=== PATIENT | female | born 1995 | race Caucasian/White ===

== ENCOUNTER 2016-08-25 20:08 | Emergency (ER) | payer BC ==
[~2016-08-25] VITALS: Ht 160 cm; Wt 120.4 kg
[~2016-08-25 20:08] MED LIST: CEPH500C PO; FLUC200T PO
[2016-08-25 20:10] VITALS: BP 142/90; PULSE 88; TEMP 36.7; O2SAT 99; Ht 160 cm; Wt 120.4 kg
[2016-08-25] MEDS ORDERED: NORE1TAB3 PO (20:23)
--- NOTE | 2016-08-25 23:03 | EMERGENCY ROOM VISIT NOTE ---
History First contact with patient: 20:23 Chief Complaint: SUN BURN Stated Complaint: SUN POISONING History of Present Illness The patient is a 21 year old female who presents to the Emergency Room with complaints of harvey to her face, upper back/neck region and both arms. The patient reports that she was fishing and out on the water the past 2 days. She did not use any sunscreen. She now rates her discomfort an 8 out of 10. Tetanus immunization is up-to-date. Review of Systems 10 system review was performed and was negative except for pertinent positives and negatives as indicated in history of present illness Past Medical/Surgical History Medical Problems: (1) No significant active problems Medical Problems: (1) Hypertension (2) No significant active problems Surgical Problems: (1) History of facial surgery (2) History of tonsillectomy and adenoidectomy Family History Hypertension Social History Smoking Status: Never Smoker Alcohol Use: occasionally Marital Status: single, in relationship Housing Status: lives with family Occupation Status: employed Current/Historical Medications Scheduled Norethin Acet & Estrad-Fe (04/29), 1 TAB PO DAILY Allergies Coded Allergies: No Known Allergies (Unverified , 08/25/16) Physical Exam Vital Signs Date Time Temp Pulse Resp B/P Pulse Ox O2 Delivery O2 Flow Rate FiO2 08/25/16 20:10 36.7 88 18 142/90 99 Room Air Physical Exam CONSTITUTIONAL: Healthy and well nourished. Alert and oriented X 3 with positive affect. HEENT: Normocephalic, atraumatic. Pupils equal, round and reactive. NECK: Full active range of motion without discomfort. RESPIRATORY: Clear to auscultation bilaterally with no wheezing, crackles, rhonchi or stridor. CARDIOVASCULAR: Regular rate and rhythm with no murmurs, rubs or gallops. GASTROINTESTINAL: Bowel sounds present in all quadrants. MUSCULOSKELETAL: Full range of motion of all joints without discomfort. INTEGUMENTARY: Examination shows a sunburn covering the entire face. No scalp involvement. The patient has mild lip edema. No periorbital edema. There is a combination of mildly blistered and non-blistered skin. The patient has a first-degree burn over the back of the neck and top of the shoulders that was exposed to the sun. She also has a mixture of first and second-degree harvey on the dorsum of the hands, forearms and upper arms. None of these harvey are circumferential. This is an approximate 13% body surface area. NEUROLOGIC: Cranial nerves II-XII grossly intact. No focal neurologic deficits noted. Medical Decision & Procedures ED Course Patient history and physical exam were performed. Nurse's notes were reviewed. I did encourage use of cool compresses for the swelling and discomfort. Ibuprofen and Tylenol as needed for additional pain relief. She was instructed to apply bacitracin zinc to the face, and follow-up with her family doctor as needed for further management. The patient voiced understanding of all discharge instructions, was happy with plan of care, refused any analgesics while in the emergency department, and rated her discomfort a 4 out of 10 at the time of discharge. Medical Decision Impression Primary Impression: Second degree sunburn Departure Information Dispostion Home / Self-Care Forms HOME CARE DOCUMENTATION FORM, IMPORTANT VISIT INFORMATION Patient Instructions Sunburn, [facility] Additional Instructions Apply bacitracin zinc twice daily as recommended to the face and arms. Do not use aloe creams as this will dry out the skin even further. Apply cool wet compresses for swelling relief. Ibuprofen 800 mg and/or Tylenol 1000 mg every 8 hours. You may also alternate these medications for more effective pain relief: Ibuprofen --4 HRS--> Tylenol --4 HRS--> ibuprofen --4 HRS--> Tylenol .... Follow-up with your family doctor as needed for further management.
== END 2016-08-25 21:00 | disposition home or self-care (01) ==
LOC: C.EDB 20:09 → C.EDD 21:00
DX: L55.1 Sunburn of second degree (principal); I10 Essential (primary) hypertension; Z98.890 Other specified postprocedural states; Z79.899 Other long term (current) drug therapy

== ENCOUNTER 2017-07-28 20:42 | Emergency (ER) | payer BC, OTHER ==
[~2017-07-28] VITALS: Ht 160 cm; Wt 118.9 kg
[~2017-07-28 20:42] MED LIST changes: -CEPH500C PO; -FLUC200T PO; +NORE1TAB3 PO
[2017-07-28 20:49] VITALS: TEMP 36.6; Ht 160 cm; Wt 118.9 kg
[2017-07-28] MEDS ORDERED: IBUPROFEN 800 MG TAB PO STA (21:16)
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
[2017-07-28 23:03] VITALS: BP 121/70; PULSE 76; O2SAT 97
[2017-07-28] MEDS ORDERED: PRX/40 PO (23:04)
[2017-07-28] MEDS ORDERED: DSY/150 PO (23:04)
[2017-07-28] MEDS ORDERED: DIAZ10TA3 PO (23:04)
[2017-07-28] MEDS ORDERED: APRI28 PO (23:04)
[2017-07-28] MEDS ORDERED: BSP15 PO (23:04)
== END 2017-07-28 23:00 | disposition home or self-care (01) ==
LOC: C.EDB 20:43 → C.EDD 23:00
DX: S20.212A Contusion of left front wall of thorax, initial encounter (principal); S90.01XA Contusion of right ankle, initial encounter; V49.40XA Driver injured in collision with unspecified motor vehicles in traffic accident, initial encounter; R03.0 Elevated blood-pressure reading, without diagnosis of hypertension; F41.8 Other specified anxiety disorders; Z79.899 Other long term (current) drug therapy

== ENCOUNTER → 2017-10-27 | Outpatient (CLI) | payer BC ==
[~2017-10-27] MED LIST changes: +APRI28 PO; +BSP15 PO; +DIAZ10TA3 PO; +DSY/150 PO; -NORE1TAB3 PO; +PRX/40 PO
== END | disposition home or self-care (01) ==
LOC: C.LABBC 08:17
PROVIDERS: ATTEND Nurse Practitioner Adult Health
DX: R63.5 Abnormal weight gain (principal)

== ENCOUNTER 2021-02-26 17:51 | Observation (INO) ==
[2021-02-26] MEDS ORDERED: SODIUM CHLORIDE 0.9% 500 ML IV STA (17:59)
[2021-02-26] MEDS ORDERED: diphenhydrAMINE 50 MG/ML VIAL IV STA (19:27)
[2021-02-26] MEDS ORDERED: PROCHLORPERAZINE 10 MG in SYRINGE 8 ML IV ONE (19:27)
[2021-02-26] MEDS ORDERED: LORazepam 0.5 MG/1 ML VIAL IV STA (19:27)
[2021-02-26 19:30] LABS: Basophils # (auto) 0.03 K/uL (0-0.2); Basophils % (auto) 0.2 %; Eosinophils # (auto) 0.05 K/uL (0-0.5); Eosinophils % (auto) 0.3 %; Hematocrit (blood only) 49.4 % (37-47); Hemoglobin 18.5 g/dL (12.0-16.0); Immature Granulocytes # (auto) 0.04 K/uL (0.00-0.02); Immature Granulocytes % (auto) 0.2 %; Lymphocytes # (auto) 3.55 K/uL (1.2-3.4); Lymphocytes % (auto) 21.3 %; Mean Corpuscular Hemoglobin 31.2 pg (25-34); Mean Corpuscular Hgb Conc 37.4 g/dL (32-36); Mean Corpuscular Volume 83.3 fL (80-100); Mean Platelet Volume 11.7 fL (7.4-10.4); Monocytes # (auto) 1.55 K/uL (0.11-0.59); Monocytes % (auto) 9.3 %; Neutrophils # (auto) 11.46 K/uL (1.4-6.5); Neutrophils % (auto) 68.7 %; Platelet Count 426 K/uL (130-400); RDW Coefficient of Variation 12.1 % (11.5-14.5); RDW Standard Deviation 36.5 fL (36.4-46.3); Red Blood Count 5.93 M/uL (4.2-5.4); White Blood Count 16.68 K/uL (4.8-10.8)
--- NOTE | 2021-02-26 19:33 | Emergency Department Note ---
History of Present Illness General Chief complaint: Vomiting Stated complaint: VOMITING FOR PAST FEW WKS,HR ELEVATED,REF BY DOC Time Seen by Provider: 02/26/21 19:19 History of Present Illness Maximum Pain Intensity: 5 This is a 25-year-old female that presents to the emergency department via private vehicle with complaints of "vomiting over the past few weeks, elevated heart rate, low potassium, referred by ". The patient notes that over the past several weeks she has been experiencing vomiting. Over the past 2 weeks she has not been able to keep any food or fluids down noting that she continues to vomit when she attempts to do this. She has been able to minimally control h er symptoms with promethazine suppositories last of which was at 3:15 PM however, this was not successful and she continues to vomit. She had outpatient labs today and she notes that her potassium was 2.7. She was recommended by her PCP to present here for further evaluation and management and repletion of her fluid and potassium deficits per report of patient. The patient denies any pain but does note a nauseated uncomfortable feeling in the abdomen from the vomiting. No chest pain or shortness of breath. No fevers. Home Medications Medication Instructions Recorded Confirmed Type norethindrone 0.4 mg-ethinyl 1 tab PO HS 12/18/20 02/26/21 History estradiol 35 mcg tablet (Briellyn) venlafaxine 150 mg 150 mg PO QAM 12/18/20 02/26/21 History capsule,extended release 24 hr (Effexor XR) buspirone 5 mg tablet 5 mg PO BID #60 tab 12/28/20 02/26/21 Rx alprazolam 0.25 mg tablet (Xanax) 0.25 mg PO TID PRN #10 tab 02/19/21 02/26/21 Rx pantoprazole 40 mg tablet,delayed 40 mg PO BID #60 tab 02/22/21 02/26/21 Rx release (Protonix) promethazine 25 mg rectal 25 mg CO Q6H PRN #12 ea 02/26/21 02/26/21 Rx suppository Allergies Allergy/AdvReac Type Severity Reaction Status Date / Time No Known Allergies Allergy Verified 02/26/21 19:48 Past Med/Surg History Medical History Bipolar disorder, unspecified BMI 45.0-49.9, adult Cyclic vomiting syndrome Depression GERD (gastroesophageal reflux disease) History of hemoptysis Morbid obesity Nausea and vomiting Oral contraceptive use Panic attacks Surgical History History of facial surgery History of tonsillectomy and adenoidectomy Family History Sister Anxiety Depression Autism Father Hypertension Anxiety Mother Breast cancer, Onset Age: 55 Anxiety Denies family history of Ovarian cancer Prostate cancer Myocardial infarction Colorectal cancer Social History Smoking Status: Current every day smoker Tobacco Type: E-cigarettes / Vaping Second Hand Exposure: No; Do You Dip or Chew Tobacco: No; Hx Alcohol Use: No Hx Substance Use: Yes Last Used Substance: Days (ago) Substance Use Type Other:: medical, vapor Preferred Language: Armenian Communication Ability: Effective Visual Impairment: No Limitations Hearing Ability: Normal Checker And Packer Required: No Beliefs That Will Affect Care: None marital status: Single Current Living Situation: Other Current Living Situation Comment: Fiance current occupational status: employed current occupation: [employer] [place] How many Children do You have: 0 Other Information That Helps Us Care for You: No Feels Safe at Home: Yes Safety Concerns: Feels Safe At This Time Diet Comment: regular caffeine: No during the past year weight has: decreased > 10 lbs Dental Care, Regularly: Yes Physical Activity Frequency: Other Seatbelt Use: always Sunscreen Use: Yes Assistive Devices: None Review of Systems A total of 10 systems reviewed and were otherwise negative Physical Exam Vital Signs Vital Signs - 24 hr 02/26/21 17:55 02/26/21 20:00 Temperature 35.6 C L Temperature Source Temporal Artery Scan Pulse Rate 124 H 98 H Pulse Rhythm Regular Pulse Strength Normal Respiratory Rate 20 14 Respiratory Effort / Characteristics Non-Labored Spontaneous Respiratory Depth Normal Respiratory Pattern Regular Blood Pressure 140/107 H 171/121 H Blood Pressure Mean 118 137 Blood Pressure Position Sitting Pulse Oximetry 95 99 Oxygen Delivery Method Room Air Sepsis Recent Fever Within 48 Hours No Sepsis New/Unexplained Change in Mental Status No Sepsis Action Taken by Nursing No Action Required VITAL SIGNS - Vital signs and nursing notes were reviewed. Tachycardic, otherwise stable. GENERAL -25-year-old female appearing her stated age who is in no acute distress but appears near syncopal and is speaking quietly. Communicates well with provider and answers questions appropriately. SKIN - Pale in appearance compared to previous visit. Without rashes. No meningeal or petechial rash. HEAD - NC/AT. EYES - PERRL with EOMI bilaterally. Sclera anicteric. EARS - No deformities of external structures noted on gross examination bilaterally. No pain elicited with palpation of the tragus bilaterally. External auditory canals without discharge or otorrhea. Tympanic membranes pearly christian without retraction or bulging. No fluid or purulent material visualized behind the TM. Handle of malleus, umbo, cone of light, pars tensa/flaccid all easily visualized. NOSE - Midline and without cyanosis. No epistaxis or purulent drainage noted. Septum midline without deviation or septal hematoma noted. MOUTH/OROPHARYNX - Without perioral cyanosis. Buccal mucosa pink and moist and without leukoplakia. Tongue midline with equal elevation of palate bilaterally. No tonsillar hypertrophy, erythema, or exudates noted. Good dentition noted. NECK - Neck with FROM. No nuchal rigidity. LUNGS - Chest wall symmetric without accessory muscle use, intercostals retractions, or central cyanosis. Normal vesicular breath sounds CTA B/L. No wheezes, rales, or rhonchi appreciated. CARDIAC -tachycardic and regular rate with S1/S2. No murmur, rubs, or gallops appreciated. ABDOMEN - Abdominal contour normal without pulsations or visible masses. BS normoactive all four quadrants. No tenderness, palpable masses, hepatosplenomega ly, or ascites noted. EXTREMITIES - +5/5 strength noted in UE/LE bilaterally. NEUROLOGIC - Cranial nerves II through XII grossly intact. PSYCH - A&O, and cooperates fully with examiner. Pt is very pleasant and interacts well with examiner. Course Administered Medications Buspirone HCl (Buspirone 5 Mg Tab) 5 mg PO BID MANDI Stop: 03/28/21 22:35 Last Admin: 02/26/21 23:28 Dose: 5 mg Documented by: [id number] Potassium Chloride (K Jeff / Wtr) 10 meq in 100 mls @ 100 mls/hr IV Q1H MANDI Stop: 02/27/21 03:44 Last Admin: 02/27/21 01:58 Dose: 100 mls/hr Documented by: [id number] Infusion: 02/27/21 01:57 Dose: 0 mls/hr Documented by: [id number] Admin: 02/27/21 01:00 Dose: 100 mls/hr Documented by: [id number] Infusion: 02/27/21 00:58 Dose: 100 mls/hr Documented by: [id number] Admin: 02/26/21 23:58 Dose: 100 mls/hr Documented by: [id number] Infusion: 02/26/21 23:57 Dose: 0 mls/hr Documented by: [id number] Admin: 02/26/21 22:57 Dose: 100 mls/hr Documented by: [id number] Sodium Chloride (Nss 1000ml) 1,000 mls @ 125 mls/hr IV .Q8H MANDI Stop: 03/28/21 22:35 Last Admin: 02/26/21 22:46 Dose: 125 mls/hr Documented by: [id number] Pantoprazole Sodium (Pantoprazole 40 Mg Tab) 40 mg PO BID MANDI Stop: 03/28/21 22:35 Last Admin: 02/26/21 23:28 Dose: 40 mg Documented by: [id number] Discontinued Medications Diphenhydramine HCl (Diphenhydramine 50 Mg/Ml Vial) 25 mg IV NOW STA Stop: 02/26/21 19:28 Last Admin: 02/26/21 19:59 Dose: 25 mg Documented by: [id number] Sodium Chloride (Nss) 500 mls @ 999 mls/hr IV .Q31M STA Stop: 02/26/21 18:29 Last Infusion: 02/26/21 21:22 Dose: 0 mls/hr Documented by: [id number] Admin: 02/26/21 19:59 Dose: 999 mls/hr Documented by: [id number] Prochlorperazine 10 mg/ (Syringe) 10 mls @ 5 mls/min IV ONE ONE Stop: 02/26/21 19:28 Last Admin: 02/26/21 19:59 Dose: 5 mls/min Documented by: [id number] Lorazepam (Ativan) 0.5 mg in 1 mls @ 1 mls/min IV NOW STA Stop: 11/19/21 19:28 Last Admin: 02/26/21 19:59 Dose: 1 mls/min Documented by: [id number] Potassium Chloride (K Jeff / Wtr) 10 meq in 100 mls @ 100 mls/hr IV Q1H MANDI Stop: 02/26/21 21:29 Last Infusion: 02/26/21 22:46 Dose: 0 mls/hr Documented by: [id number] Admin: 02/26/21 21:22 Dose: 100 mls/hr Documented by: [id number] Infusion: 02/26/21 21:22 Dose: 0 mls/hr Documented by: [id number] Admin: 02/26/21 19:59 Dose: 100 mls/hr Documented by: [id number] Magnesium Sulfate/Dextrose (Magnesium Sulfate / D5w) 1 gm in 100 mls @ 100 mls/hr IV NOW STA Stop: 02/26/21 21:03 Last Admin: 02/26/21 20:18 Dose: Not Given Documented by: [id number] Prochlorperazine (Prochlorperazine 5 Mg/Ml 2 Ml Vial) Confirm Administered Dose 10 mg .ROUTE .STK-MED ONE Stop: 02/26/21 19:58 Last Admin: 02/26/21 19:59 Dose: Not Given Documented by: [id number] Medical Decision Making Laboratory Data Result diagrams: 02/26/21 Unknown 02/27/21 00:50 Lab Results 02/26/21 Range/Units 20:22 SARS-CoV-2, RNA, NAAT NEGATIVE (NEGATIVE) MDM Narrative Patient was seen and evaluated as above in room C04. Review was performed of triage nursing notes and vital signs. I did extensively review pertinent previous visits and patient history. After obtaining a thorough history and physical examination the above work up was performed. The patient has been seen here in the emergency department 5 times in 10 days. She had an EGD this past Monday. Review of this report reveals: Moderately severe esophagitis with no b leeding in the distal esophagus. Biopsies were taken at that time. There was also comment of diffuse mild inflammation characterized by erythema found in the stomach. Biopsies were also taken of this area. Per report. Clinically at this time the patient is tachycardic. She was wheeled to the exam room via chair and notes that she almost passed out. Patient does appear near syncopal. She is pale. Patient has tried her Phenergan suppositories at home last of which was around 3 PM without any success. She continues to vomit. She is not able to take her medications, fluids or food. She has a benign abdominal exam. No fever. Options of care were discussed with the patient. IV access was established. Labs were drawn. I did order the patient fluids, Compazine, IV Benadryl, IV Ati van. Potassium replacement was also ordered. I will note that labs were drawn earlier today revealing a potassium of 2.7. With the patient's current presentation state at this time with associated vomiting prehospital despite the prescribed rectal Phenergan I do believe that further evaluation and management the inpatient setting is warranted. She will require IV repletion of the potassium. Repeat K here is 2.5. Case discussed with hospitalist, ED attending. Please refer to further documentation regarding her stay. Labs reveal leukocytosis 16.68 which is felt to be secondary to dehydration and vomiting. Do not suspect infectious etiology. Hemoglobin 18.5. Platelet count 426. Sodium 132. Potassium 2.5. No evidence of kidney or liver failure. Troponin negative. Lipase 975. EKG was reviewed by myself and found to be sinus tachycardia at a rate of 98 beats per minute and per my interpretation reveals QTC 537. QRS 84. No ST elevation. No evidence of ischemia. An order was placed for continuous cardiac monitoring. The monitor shows a rate of 98 with sinus rhythm. I attest that I have personally reviewed the patient medication list. GCS: 15 In the evaluation and treatment of this patient the following differential diagnoses were entertained: Obstruction, sepsis, gastroenteritis, gastritis, esophagitis, cannabis induced vomiting, UTI, pyelonephritis, Boerhaave syndrome, acute cholecystitis, among others. Impression & Plan Nausea and vomiting, Leukocytosis, Hypokalemia, Hyponatremia Discharge Plan Visit Data Chief Complaint: Vomiting Stated Complaint: VOMITING FOR PAST FEW WKS,HR ELEVATED,REF BY DOC ED Provider: Sonny Campos ED Midlevel Provider: Abbe Thomas Discharge Problem: Nausea and vomiting, Leukocytosis, Hypokalemia, Hyponatremia Patient Disposition: Admitted As Inpatient Condition: Good Discharge Instructions Interventions: ED Discharge Assessment Last Done: 02/26/21 22:20
[2021-02-26] MEDS ORDERED: PROCHLORPERAZINE 5 MG/ML 2 ML VIAL ONE (19:57)
[2021-02-26] MEDS: POTASSIUM CHLORIDE / WTR 10 MEQ/100 ML PLCT IV SCH ×4 (19:59→23:58)
[2021-02-26 20:01] LABS: Alanine Aminotransferase 34 U/L (12-78); Albumin Globulin Ratio 0.9 (0.9-2); Albumin Level 4.7 gm/dl (3.4-5.0); Alkaline Phosphatase 82 U/L (45-117); Aspartate Aminotransferase 16 U/L (15-37); BUN Creatinine Ratio 10.3 (10-20); Bilirubin,Total 1.3 mg/dl (0.2-1); Blood Urea Nitrogen 10 mg/dl (7-18); Calcium 10.1 mg/dl (8.5-10.1); Carbon Dioxide 26 mmol/L (21-32); Chloride 93 mmol/L (98-107); Creatinine Clr Calc Pharmacy 91.7 ml/min; Est GFR (African American) 89.4 ml/min; Est GFR (Non-African American) 77.2 ml/min; Globulin 5.1 gm/dl (2.5-4.0); Glucose 96 mg/dl (70-99); Lipase 975 U/L (73-393); Magnesium 2.3 mg/dl (1.8-2.4); Potassium 2.5 mmol/L (3.5-5.1); Sodium 132 mmol/L (136-145); Total Protein 9.8 gm/dl (6.4-8.2); Troponin I < 0.015 ng/ml (0-0.045)
[2021-02-26] MEDS ORDERED: MAGNESIUM SULFATE / D5W 1 GM/100 ML BAG IV STA (20:04)
[2021-02-26 20:36] LABS: Pregnancy Test, Serum Negative (Negative)
--- NOTE | 2021-02-26 21:10 | History & Physical Report ---
Date of Service February 26, 2021 Assessment & Plan (1) Cannabinoid hyperemesis syndrome: Plan: Persistent vomiting -Likely cannabinoid hyperemesis syndrome given hx of CBD use disorder, lower suspicion for cyclic vomiting syndrome -Continue IVF NSS 125 ml/hr -NPO, advance diet as tolerated -IV Zofran PRN -Continue to monitor fluid status -Psychiatry consult placed -Trend CBC, BMP, Mg Hypokalemia -K 2.5 on admission -Continuing repletion with K-riders, recheck BMP -Mg 2.3 wnl -Trend BMP, Mg Hyponatremia -Na 132 on admission -Likely hypovolemic hyponatremia secondary to emesis -Continue IVF NSS -Serum osmolality ordered -Trend BMP Leukocytosis -WBC 16.7 on admission, afebrile -Elevated Hgb, Plt implying hemoconcentration -Expected to resolve with IVF -Continue to monitor, trend CBC Mood disorder -Continue home buspirone, Effexor GERD -Continue IV protonix FENGI: NPO due to nausea, advance as tolerated DVT ppx: SCDs Code Status: Full Dispo: Med/Surg (2) Hypokalemia: (3) Hyponatremia: (4) Mood disorder: (5) Leukocytosis: History of Present Illness Primary Care Provider: Anahy Galloway, DO 25 yo F with PMH bipolar disorder, chronic cannabis use disorder, GERD presenting with persistent vomiting, seen in ED and hospitalized multiple times in the past for this. States vomiting started with gradual onset approximately 2 weeks ago- occurring multiple times a day, non-bilious, non-bloody, typically food-colored. Pt states she is not currently , denies any associated cough, chest pain, heartburn, abdominal pain, fever or diarrhea. Experiencing decreased PO intake, has had little to no solid and minimal liquid intake. Promethazine suppositories provide minimal relief of symptoms. Went to PCP today and labwork revealed K 2.7, sent over to ED by PCP for IVF and K repletion. Cannabis use- approximately 3 years of daily marijuana consumption via vape, multiple times a day. States she has not smoked in last 2 weeks on recommenda tion of PCP. Denies recent stress exacerbation, anxiety or decline in mood. Of note, pt had EGD 4 days prior- moderate-severe esophagitis without bleeding. In ED, pt noted to be tachycardic and lightheaded with pallor, continued to vomit. Given IVF, anti-emetics, K repleted. Labs revealing elevations across cell counts on CBC, Na 132, troponin negative, lipase 975. EKG with sinus tachycardia and prolonged QT, no ST changes or U waves. Allergies Allergy/AdvReac Type Severity Reaction Status Date / Time No Known Allergies Allergy Verified 02/26/21 19:48 Home Medications Medication Instructions Recorded Confirmed Type norethindrone 0.4 mg-ethinyl 1 tab PO HS 12/18/20 02/26/21 History estradiol 35 mcg tablet (Briellyn) venlafaxine 150 mg 150 mg PO QAM 12/18/20 02/26/21 History capsule,extended release 24 hr (Effexor XR) buspirone 5 mg tablet 5 mg PO BID #60 tab 12/28/20 02/26/21 Rx alprazolam 0.25 mg tablet (Xanax) 0.25 mg PO TID PRN #10 tab 02/19/21 02/26/21 Rx pantoprazole 40 mg tablet,delayed 40 mg PO BID #60 tab 02/22/21 02/26/21 Rx release (Protonix) promethazine 25 mg rectal 25 mg MT Q6H PRN #12 ea 02/26/21 02/26/21 Rx suppository Past Med/Surg History Medical History Bipolar disorder, unspecified BMI 45.0-49.9, adult Cyclic vomiting syndrome Depression GERD (gastroesophageal reflux disease) History of hemoptysis Morbid obesity Nausea and vomiting Oral contraceptive use Panic attacks Surgical History History of facial surgery History of tonsillectomy and adenoidectomy Family History Sister Anxiety Depression Autism Father Hypertension Anxiety Mother Breast cancer, Onset Age: 55 Anxiety Denies family history of Ovarian cancer Prostate cancer Myocardial infarction Colorectal cancer Social History Smoking Status: Current every day smoker Tobacco Type: E-cigarettes / Vaping Second Hand Exposure: No; Do You Dip or Chew Tobacco: No; Hx Alcohol Use: No Hx Substance Use: Yes Last Used Substance: Days (ago) Substance Use Type Other:: medical, vapor Preferred Language: Gibraltarian Communication Ability: Effective Visual Impairment: No Limitations Hearing Ability: Normal Forest Products Gatherer Required: No Beliefs That Will Affect Care: None marital status: Single Current Living Situation: Other Current Living Situation Comment: [place] current occupational status: employed current occupation: [employer] [place] How many Children do You have: 0 Other Information That Helps Us Care for You: No Feels Safe at Home: Yes Safety Concerns: Feels Safe At This Time Diet Comment: regular caffeine: No during the past year weight has: decreased > 10 lbs Dental Care, Regularly: Yes Physical Activity Frequency: Other Seatbelt Use: always Sunscreen Use: Yes Assistive Devices: None Review of Systems Review of Systems: Per HPI- +NBNB emesis Physical Exam Physical Exam: General: obese, laying in bed, no acute distress HEENT: dry mucous membranes, no lymphadenopathy or JVD CV: +tachycardic, normal rhythm, normal S1 S2, no murmurs Resp: CTAB, unlabored respirations without accessory muscle use, no wheezes or crackles Abdomen: soft, nontender, nondistended Neuro: AOx3, motor strength 5/5 in b/l UE and LE, no gross focal motor or sensory deficits Skin: no pallor or jaundice, no rashes, no skin tenting Ext: no peripheral edema, distal pulses 2+ Results & Data Results & [facility] ([facility]) Vital Signs (Past 12 Hours) Vital Signs Temp Pulse Resp BP Pulse Ox 02/26/21 20:00 98 H 14 171/121 H 99 02/26/21 17:55 35.6 C L 124 H 20 140/107 H 95 Laboratory Results Laboratory Results WBC 16.68 K/uL (4.8-10.8) H 02/26/21 Unknown RBC 5.93 M/uL (4.2-5.4) H 02/26/21 Unknown Hgb 18.5 g/dL (12.0-16.0) H 02/26/21 Unknown Hct 49.4 % (37-47) H 02/26/21 Unknown MCV 83.3 fL (80-100) 02/26/21 Unknown MCH 31.2 pg (25-34) 02/26/21 Unknown MCHC 37.4 g/dL (32-36) H 02/26/21 Unknown RDW Std Deviation 36.5 fL (36.4-46.3) 02/26/21 Unknown RDW Coeff of Derik 12.1 % (11.5-14.5) 02/26/21 Unknown Plt Count 426 K/uL (130-400) H 02/26/21 Unknown MPV 11.7 fL (7.4-10.4) H 02/26/21 Unknown Immature Gran % (Auto) 0.2 % 02/26/21 Unknown Neut % (Auto) 68.7 % 02/26/21 Unknown Lymph % (Auto) 21.3 % 02/26/[address] [place] % (Auto) 9.3 % 02/26/21 Unknown Eos % (Auto) 0.3 % 02/26/21 Unknown Baso % (Auto) 0.2 % 02/26/21 Unknown Neut # (Auto) 11.46 K/uL (1.4-6.5) H 02/26/21 Unknown Lymph # (Auto) 3.55 K/uL (1.2-3.4) H 02/26/[address] [place] # (Auto) 1.55 K/uL (0.11-0.59) H 02/26/21 Unknown Eos # (Auto) 0.05 K/uL (0-0.5) 02/26/21 Unknown Baso # (Auto) 0.03 K/uL (0-0.2) 02/26/21 Unknown Immature Gran # (Auto) 0.04 K/uL (0.00-0.02) H 02/26/21 Unknown Sodium 132 mmol/L (136-145) L 02/26/21 Unknown Potassium 2.5 mmol/L (3.5-5.1) L* 02/26/21 Unknown Chloride 93 mmol/L (98-107) L 02/26/21 Unknown Carbon Dioxide 26 mmol/L (21-32) 02/26/21 Unknown Anion Gap 13.0 (3-11) H 02/26/21 Unknown BUN 10 mg/dl (7-18) 02/26/21 Unknown Creatinine 1.00 mg/dl (0.6-1.2) 02/26/21 Unknown Est Cr Clr Drug Dosing 91.7 ml/min 02/26/21 Unknown Est GFR ( Amer) 89.4 ml/min 02/26/21 Unknown Est GFR (Non-Af Amer) 77.2 ml/min 02/26/21 Unknown BUN/Creatinine Ratio 10.3 (10-20) 02/26/21 Unknown Glucose 96 mg/dl (70-99) 02/26/21 Unknown Calcium 10.1 mg/dl (8.5-10.1) 02/26/21 Unknown Magnesium 2.3 mg/dl (1.8-2.4) 02/26/21 Unknown Total Bilirubin 1.3 mg/dl (0.2-1) H 02/26/21 Unknown AST 16 U/L (15-37) 02/26/21 Unknown ALT 34 U/L (12-78) 02/26/21 Unknown Alkaline Phosphatase 82 U/L (45-117) 02/26/21 Unknown Troponin I < 0.015 ng/ml (0-0.045) 02/26/21 Unknown Total Protein 9.8 gm/dl (6.4-8.2) H 02/26/21 Unknown Albumin 4.7 gm/dl (3.4-5.0) 02/26/21 Unknown Globulin 5.1 gm/dl (2.5-4.0) H 02/26/21 Unknown Albumin/Globulin Ratio 0.9 (0.9-2) 02/26/21 Unknown Lipase 975 U/L (73-393) H 02/26/21 Unknown HCG, Qual Negative (Negative) 02/26/21 Unknown SARS-CoV-2, RNA, NAAT NEGATIVE (NEGATIVE) 02/26/21 20:22 Code Status & VTE Plan VTE Prophylaxis Plan VTE Prophylaxis will be ordered: Yes Supervising Physician Co-Signing Physician Notes Attending addendum: I have physically seen this patient, have supervised the medical residents activities, and agree with the H&P unless as otherwise noted. Assessment and Plan: Cannabinoid hyperemesis syndrome- Discussion with patient and mother who is in attendance, related to the importance of discontinuance, or at the very least significantly reducing usage of marijuana NPO for now, and then in a.m. begin advance diet as tolerated Zofran 4 mg IV every 6 hours as needed Phenergan 12.5 mg IV every 6 hours as needed NSS + KCl 20 mEq at 150 mils per hour Pantoprazole 40 mg IV daily Consult psychiatry, for now continue buspirone and Effexor Electrolyte disturbances- Sodium 132, potassium 2.5 with normal magnesium 2.3 Give KCl 10 mEq riders x4 Repeat BMP and magnesium levels in a.m. Remaining orders and notations as noted Resident Activity Tracking Resident Involvement: Resident Care Provided Care Provided: Adult Hospital Medicine
[2021-02-26] MEDS ORDERED: PROMETHAZINE HCL 25 MG SUPP PR PRN (22:36)
[2021-02-26] MEDS ORDERED: ALPRAZolam 0.25 MG TABLET PO PRN (22:36)
[2021-02-26] MEDS: SODIUM CHLORIDE 0.9% 1000ML 1,000 ML IV SCH (22:46)
[2021-02-26] MEDS: PANTOprazole 40 MG TAB PO SCH (23:28)
[2021-02-26] MEDS: busPIRone 5 MG TAB PO SCH (23:28)
[2021-02-27] MEDS: POTASSIUM CHLORIDE / WTR 10 MEQ/100 ML PLCT IV SCH ×6 (01:00→11:34)
[2021-02-27 01:29] LABS: BUN Creatinine Ratio 10.3 (10-20); Calcium 8.7 mg/dl (8.5-10.1); Est GFR (African American) 137.6 ml/min; Est GFR (Non-African American) 118.7 ml/min; Magnesium 2.1 mg/dl (1.8-2.4); Potassium 3.3 mmol/L (3.5-5.1)
[2021-02-27] MEDS: SODIUM CHLORIDE 0.9% 1000ML 1,000 ML IV SCH ×2 (05:21→13:37)
[2021-02-27 06:04] LABS: Appearance Urine Cloudy (Clear); Bacteria Urine Automated 1+ (Negative); Bilirubin Urine Negative (Negative); Blood Urine Negative (Negative); Color Urine Dark Yellow; Epithelial Cell Urine Auto >30 /lpf (0-5); Glucose Urine UA Negative (Negative); Ketones Urine 3+ (Negative); Leukocyte Esterase Urine Negative (Negative); Nitrite Urine Negative (Negative); Protein Urine Trace (Negative); RBC Urine Automated 0-4 /hpf (0-4); Urobilinogen Urine Negative (Negative)
[2021-02-27 06:35] LABS: Amphetamines+Metham, Urine Neg (Neg); Barbiturates, Urine Neg (Neg); Benzodiazepine, Urine Neg (Neg); Cocaine, Urine Neg (Neg); MDMA (Ecstacy), Urine Neg (Neg); Methadone, Urine Neg (Neg); Opiate, Urine Neg (Neg); Phencyclidine, Urine Neg (Neg)
[2021-02-27 06:49] LABS: Hematocrit (blood only) 38.6 % (37-47); Hemoglobin 14.1 g/dL (12.0-16.0); Mean Corpuscular Hemoglobin 30.7 pg (25-34); Mean Corpuscular Hgb Conc 36.5 g/dL (32-36); Mean Corpuscular Volume 84.1 fL (80-100); Mean Platelet Volume 11.4 fL (7.4-10.4); Platelet Count 299 K/uL (130-400); RDW Coefficient of Variation 12.2 % (11.5-14.5); RDW Standard Deviation 37.3 fL (36.4-46.3); Red Blood Count 4.59 M/uL (4.2-5.4); White Blood Count 12.03 K/uL (4.8-10.8)
[2021-02-27 06:53] LABS: BUN Creatinine Ratio 7.8 (10-20); Calcium 8.8 mg/dl (8.5-10.1); Creatinine Clr Calc Pharmacy 120.7 ml/min; Est GFR (African American) 124.6 ml/min; Est GFR (Non-African American) 107.5 ml/min; Magnesium 2.2 mg/dl (1.8-2.4); Potassium 3.3 mmol/L (3.5-5.1)
[2021-02-27 07:10] VITALS: BP 150/97; PULSE 105; TEMP 98.1; O2SAT 100
[2021-02-27] MEDS ORDERED: PROMETHAZINE HCL 25 MG in SODIUM CHLORIDE 0.9% 50 ML IV PRN (07:54)
[2021-02-27] MEDS: PANTOprazole 40 MG TAB PO SCH (08:39)
[2021-02-27] MEDS: busPIRone 5 MG TAB PO SCH (08:39)
[2021-02-27] MEDS ORDERED: VENLAFAXINE HCL XR 150 MG CAPXR PO SCH (09:00)
--- NOTE | 2021-02-27 09:40 | Hospitalist Progress Note ---
Date of Service February 27, 2021 Assessment & Plan Admission and Anticipated Discharge Date Admission Date: February 26, 2021 Subjective Awake, alert in bed. Complained this AM of nausea, which is now improved. Wants to leave. Denies need for psych (says she sees PCP, psychotherapist). Physical Exam Constitutional: WD/WN, vitals as above Respiratory: normal respiratory effort, lungs clear to auscultation Cardiovascular: Rate/Rhythm: regular rhythm and + tachycardic Heart Sounds: normal S1 and normal S2; no gallop, no murmur and no cardiac rub Psychiatric: A+Ox3, euthymic affect Results & Data Results & Data ([facility]) Vital Signs (Past 12 Hours) Vital Signs Temp Pulse Resp BP Pulse Ox 02/27/21 07:09 36.7 C 105 H 16 150/97 H 100 02/26/21 23:32 36.8 C 02/26/21 22:30 37.9 C H 115 H 18 149/80 H 98
[2021-02-27] MEDS ORDERED: POTASSIUM CHLORIDE CRTAB 20 MEQ TABCR PO STA (14:38)
--- NOTE | 2021-02-27 15:10 | Discharge Summary ---
Date of Service February 27, 2021 Admission HPI Per Admitting Provider 25 yo F with PMH bipolar disorder, chronic cannabis use disorder, GERD presenting with persistent vomiting, seen in ED and hospitalized multiple times in the past for this. States vomiting started with gradual onset approximately 2 weeks ago- occurring multiple times a day, non-bilious, non-bloody, typically food-colored. Pt states she is not currently , denies any associated cough, chest pain, heartburn, abdominal pain, fever or diarrhea. Experiencing decreased PO intake, has had little to no solid and minimal liquid intake. Promethazine suppositories provide minimal relief of symptoms. Went to PCP today and labwork revealed K 2.7, sent over to ED by PCP for IVF and K repletion. Cannabis use- approximately 3 years of daily marijuana consumption via vape, multiple times a day. States she has not smoked in last 2 weeks on recommendation of PCP. Denies recent stress exacerbation, anxiety or decline in mood. Of note, pt had EGD 4 days prior- moderate-severe esophagitis without bleeding. In ED, pt noted to be tachycardic and lightheaded with pallor, continued to vomit. Given IVF, anti-emetics, K repleted. Labs revealing elevations across cell counts on CBC, Na 132, troponin negative, lipase 975. EKG with sinus tachycardia and prolonged QT, no ST changes or U waves. Admission Exam Per Admitting Provider Physical Exam: General: obese, laying in bed, no acute distress HEENT: dry mucous membranes, no lymphadenopathy or JVD CV: +tachycardic, normal rhythm, normal S1 S2, no murmurs Resp: CTAB, unlabored respirations without accessory muscle use, no wheezes or crackles Abdomen: soft, nontender, nondistended Neuro: AOx3, motor strength 5/5 in b/l UE and LE, no gross focal motor or sensory deficits Skin: no pallor or jaundice, no rashes, no skin tenting Ext: no peripheral edema, distal pulses 2+ Principal Diagnosis Cannabis hyperemesis. Discharge Exam Eyes PERRL, conjunctivae normal, anicteric sclerae Cardiovascular Rate/Rhythm: regular rhythm and + tachycardic Psychiatric A+Ox3, euthymic affect Discharge Data Allergies Allergy/AdvReac Type Severity Reaction Status Date / Time No Known Allergies Allergy Verified 02/26/21 19:48 Consultations 02/26/21 20:15 ED Decision to Admit Stat 02/27/21 08:07 Consult Behavioral Health Liaison Routine Hospital Course (1) Cannabinoid hyperemesis syndrome: Persistent vomiting -Likely cannabinoid hyperemesis syndrome given hx of CBD use disorder, lower suspicion for cyclic vomiting syndrome -Follows with GI and has had EGD showing esophagitis -Received IVF and antiemetics. -Symptoms improved at the time of discharge. -Outpatient follow up with PCP and GI. Hypokalemia sec to vomiting -K 2.5 on admission -Mg 2.3 wnl -Repleted Hyponatremia -Na 132 on admission. -Likely hypovolemic hyponatremia secondary to emesis -135 today on morning BMP. Leukocytosis -WBC 16.7 on admission, afebrile -Elevated Hgb, Plt implying hemoconcentration -WBC 12.03 this morning. No signs of fever. Mood disorder -Continue home buspirone, Effexor GERD -Protonix (2) Hypokalemia: (3) Hyponatremia: (4) Mood disorder: (5) Leukocytosis: Total Time Total Time Spent Total Time Spent (In Minutes): 10 Discharge Plan Discharge Items Patient Disposition: Home - Self-Care Reason For Visit: HYPEREMESIS Discharge Diagnosis: Cannabis hyperemesis. Condition on Discharge: Good Activity: Per Instructions section Non-emergency contact: Primary Care Provider Call non-emergency contact if: your symptoms worsen Follow-up/Referrals: Anahy Galloway DO [Primary Care Provider] - Diet: Regular Addtl Attending Provider Instructions: You were admitted to the hospital for intractable vomiting. You were treated with intravenous Zofran, and promethazine. You were also found to have a low potassium on admission. We gave you additional potassium orally and intravenously. A discharge summary will be sent to your primary care physician to ensure continuity of care. Please bring this discharge summary with you to your next office appointment so that your provider can review it at that time. Follow-up appointments: Make a follow-up appointment with your PCP within the next week. It is very important that you follow up with them shortly after discharge from the hospital. Keep all your follow-up appointments as already scheduled. If you cannot make an appointment, notify your provider. Medications: Your medication list has been reviewed and reconciled upon discharge to ensure accuracy and continuity of care. An updated list of all your medications is included with your hospital discharge paperwork. Please review this list closely, and make note of any changes. You can continue taking your medications as instructed; do not skip a dose of your medicines. Make sure all of your doctors know every medicine you are taking (including tetx-orh-vzlycyh medicines, vitamins, and supplements). Call your primary care provider before taking any new medicines (including ojon-hwm-dcbygme medicines, vitamins, and supplements), because some of these may interact with your current medications, or may make your symptoms worse. Tell your primary care provider if you cannot afford your medications. CONTACT YOUR PRIMARY CARE PROVIDER if you experience any of the following: Worsening nausea Dizziness/passing out from standing up Difficulty following your treatment plan, or difficulty taking medications CALL 911 OR GO TO THE EMERGENCY DEPARTMENT if you experience any of the following: Sudden, severe abdominal pain or nausea/vomiting Severe chest pain, or chest pain that radiates (moves) to your jaw or arm Sudden, severe shortness of breath or difficulty breathing Thank you for allowing us to participate in your care. Pending Studies at Discharge: No Stand-Alone Forms: My [facility], Smoking Cessation Medications and DC Order Prescriptions: Continued alprazolam [Xanax] 0.25 mg tablet 0.25 mg PO TID PRN (Reason: anxiety) Qty: 10 RF: 0 pantoprazole [Protonix] 40 mg tablet,delayed release (DR/EC) 40 mg PO BID Qty: 60 RF: 2 buspirone 5 mg tablet 5 mg PO BID Qty: 60 RF: 2 promethazine 25 mg suppository 25 mg [place] Q6H PRN (Reason: nausea and vomiting) Qty: 12 RF: 1 Briellyn 0.4-35 mg-mcg tablet 1 tab PO HS RF: 0 venlafaxine [Effexor XR] 150 mg capsule,extended release 24hr 150 mg PO QAM RF: 0 Discharge Orders: Discharge Order (Routine); Ordered 02/27/21 Ordered By: Srinivas Fung/Other Patient Handouts: Self-Care for Vomiting and Diarrhea, ED Vomiting (Adult) Admission Data Admit Date/Time: 02/26/21 20:40 Attending Provider: Krystal Lawrence Admit Provider: Saritha Carranza Primary Care Provider: Anahy Galloway Other Providers: Charli Mai Other Interventions: Discharge Summary Assessment (RN) Last Done: 02/27/21 15:24 Supervising Physician Co-Signing Physician Notes Resident Physician Supervision Note: I independently interviewed and examined the patient and verified the sher history and physical, reviewed labs and image studies and agree with resident Dr. Gutierrez findings and care plan. Resident Activity Tracking Resident Involvement: Resident Care Provided Care Provided: Adult Hospital Medicine
--- NOTE | 2021-02-28 02:28 | Billing Data ---
Date of Service February 28, 2021 Coding Level of Care Code INT OBSERVATION CARE 70M LVL 3
--- NOTE | 2021-02-28 09:39 | Electrocardiogram Report ---
Test Reason : Blood Pressure : / mmHG Vent. Rate : 113 BPM Atrial Rate : 113 BPM P-R Int : 124 ms QRS Dur : 084 ms QT Int : 392 ms P-R-T Axes : 077 040 038 degrees QTc Int : 537 ms Sinus tachycardia Possible Left atrial enlargement Prolonged QT Abnormal ECG No previous ECGs available Confirmed by Elliott Medrano ([id number]) on 02/28/2021 9:39:19 AM Referred By: Anahy Galloway Confirmed By:Elliott Medrano
[2021-02-28 15:16] LABS: Marijuana Quant, GCMS Urine 3835 ng/mL (<5)
== END 2021-02-27 17:41 | disposition home or self-care (01) ==
LOC: 3W 17:51 → ED 17:51 → SUATTDRO 20:40 → 3W 22:20

== ENCOUNTER 2021-06-26 06:45 | Observation (INO) ==
--- NOTE | 2021-06-26 07:11 | Emergency Department Note ---
History of Present Illness General Chief complaint: Vomiting Stated complaint: VOMITING Time Seen by Provider: 06/26/21 06:59 Source: patient Mode of arrival: ambulatory Limitations: no limitations History of Present Illness Maximum Pain Intensity: 3 This patient is a 26-year-old female who presents to the emergency department for evaluation of vomiting. She states that she has a history of cyclical vomiting syndrome. She began vomiting 4 days ago and has been unable to keep anything down. She states that her heart is racing. She feels better when she is here, but states that when she gets home she starts vomiting again. She has tried suppositories at home but states they do not help. Her last episode of vomiting was 10 minutes ago. She does have a history of marijuana use but states she has not used marijuana since she began vomiting. She denies any diarrhea. She reports some abdominal soreness from vomiting. Home Medications Medication Instructions Recorded Confirmed Type norethindrone 0.4 mg-ethinyl 1 tab PO HS 12/18/20 06/26/21 History estradiol 35 mcg tablet (Briellyn) promethazine 25 mg rectal 25 mg [place] Q6H PRN #12 ea 06/24/21 06/26/21 Rx suppository Allergies Allergy/AdvReac Type Severity Reaction Status Date / Time No Known Allergies Allergy Verified 06/26/21 08:36 Past Med/Surg History Medical History Bipolar disorder, unspecified BMI 45.0-49.9, adult Cyclic vomiting syndrome Depression GERD (gastroesophageal reflux disease) History of hemoptysis Morbid obesity Oral contraceptive use Panic attacks Surgical History History of facial surgery History of tonsillectomy and adenoidectomy Family History Sister Anxiety Depression Autism Father Hypertension Anxiety Mother Breast cancer, Onset Age: 55 Anxiety Denies family history of Ovarian cancer Prostate cancer Myocardial infarction Colorectal cancer Social History Smoking Status: Unknown if ever smoked Tobacco Type: E-cigarettes / Vaping Second Hand Exposure: No; Hx Alcohol Use: No Hx Substance Use: Yes Last Used Substance: Days (ago) Last Used Substance Other:: occasionally Substance Use Type Other:: medical, vapor Preferred Language: Yakut Communication Ability: Effective Visual Impairment: No Limitations Hearing Ability: Normal Chocolate Refining Roller Required: No Beliefs That Will Affect Care: None marital status: Single Current Living Situation: Alone and Spouse Current Living Situation Comment: [place] current occupational status: employed current occupation: [employer] How many Children do You have: 0 Other Information That Helps Us Care for You: No Feels Safe at Home: Yes Safety Concerns: Feels Safe At This Time Diet Comment: regular caffeine: No during the past year weight has: decreased > 10 lbs Dental Care, Regularly: Yes Physical Activity Frequency: Other Seatbelt Use: always Sunscreen Use: Yes Assistive Devices: None Review of Systems A total of 10 systems reviewed and were otherwise negative Physical Exam Vital Signs Vital Signs - 24 hr 06/26/21 06:55 06/26/21 07:51 06/26/21 08:00 Temperature 36.4 C L Temperature Source Temporal Artery Scan Pulse Rate 98 H 98 H Pulse Rate [Radial] 78 Pulse Rhythm Regular Pulse Rhythm [Radial] Regular Respiratory Rate 16 16 16 Respiratory Effort / Characteristics Non-Labored Respiratory Depth Normal Respiratory Pattern Regular Blood Pressure 174/124 H Blood Pressure [Left Arm] 171/109 H Blood Pressure Mean 140 Blood Pressure Mean [Left Arm] 129 Blood Pressure Position Sitting Pulse Oximetry 99 99 95 Oxygen Delivery Method Room Air Room Air Room Air Sepsis Recent Fever Within 48 Hours No Sepsis New/Unexplained Change in Mental Status No Sepsis Action Taken by Nursing No Action Required 06/26/21 10:00 06/26/21 11:51 Temperature 36.8 C Temperature Source Oral Pulse Rate 98 H Pulse Rate [Radial] 98 H Pulse Rhythm Pulse Rhythm [Radial] Regular Respiratory Rate 16 18 Respiratory Effort / Characteristics Non-Labored Respiratory Depth Normal Respiratory Pattern Regular Blood Pressure 126/92 Blood Pressure [Left Arm] 128/97 Blood Pressure Mean Blood Pressure Mean [Left Arm] 107 Blood Pressure Position Pulse Oximetry 98 99 Oxygen Delivery Method Room Air Room Air Sepsis Recent Fever Within 48 Hours Sepsis New/Unexplained Change in Mental Status Sepsis Action Taken by Nursing VITALS: Vitals are noted on the nurse's note and reviewed by myself. GENERAL: This is a 26-year-old female, in no acute distress, well-developed well-nourished. SKIN: The skin was without rashes. EARS: External auditory canals clear, tympanic membranes pearly christian without erythema or effusion bilaterally. EYES: Pupils equal round and reactive to light and accommodation. NOSE: Patent, turbinates without inflammation or discharge. MOUTH: Mucous membranes moist. NECK: Supple without nuchal rigidity. No lymphadenopathy. HEART: Regular rate and rhythm without murmurs gallops or rubs. LUNGS: Clear to auscultation bilaterally without wheezes, rales or rhonchi. ABDOMEN: Positive bowel sounds x 4. Soft, mild generalized tenderness to palpation. NEURO: Patient was alert and oriented to person place and time. Course Administered Medications Potassium Chloride 40 meq/ (Sodium Chloride) 1,020 mls @ 100 mls/hr IV .[id number] MANDI Stop: 07/26/21 12:59 Last Admin: 06/26/21 14:07 Dose: 100 mls/hr Documented by: [id number] Ondansetron HCl 8 mg/ Dextrose 54 mls @ 216 mls/hr IV Q6H PRN PRN Reason: Nausea Stop: 07/26/21 12:26 Last Infusion: 06/26/21 13:12 Dose: 0 mls/hr Documented by: [id number] Admin: 06/26/21 12:45 Dose: 216 mls/hr Documented by: [id number] Pantoprazole Sodium (Pantoprazole 40 Mg Tab) 40 mg PO BID MANDI Stop: 07/26/21 10:59 Last Admin: 06/26/21 11:23 Dose: 40 mg Documented by: [id number] Discontinued Medications Diphenhydramine HCl (Diphenhydramine 50 Mg/Ml Vial) 25 mg IV NOW STA Stop: 06/26/21 07:13 Last Admin: 06/26/21 07:45 Dose: 25 mg Documented by: [id number] Droperidol (Droperidol 5 Mg/2 Ml Vial) 0.625 mg IV ONE STA Stop: 06/26/21 09:02 Last Admin: 06/26/21 09:17 Dose: 0.625 mg Documented by: [id number] Potassium Chloride 10 meq/ (Sodium Chloride) 1,005 mls @ 999 mls/hr IV .Q1H1M ONE Stop: 06/26/21 08:12 Last Infusion: 06/26/21 09:17 Dose: 0 mls/hr Documented by: [id number] Admin: 06/26/21 07:47 Dose: 999 mls/hr Documented by: [id number] Prochlorperazine (Compazine) 2 mls @ 1 mls/min IV ONE ONE Stop: 06/26/21 07:13 Last Admin: 06/26/21 07:45 Dose: 1 mls/min Documented by: [id number] Potassium Chloride (K Jeff / Wtr) 10 meq in 100 mls @ 100 mls/hr IV ONE ONE; Protocol Stop: 06/26/21 10:08 Last Infusion: 06/26/21 10:47 Dose: 0 mls/hr Documented by: [id number] Infusion: 06/26/21 09:33 Dose: 75 mls/hr Documented by: [id number] Admin: 06/26/21 09:17 Dose: 100 mls/hr Documented by: [id number] Sodium Chloride (Nss 1000ml) 1,000 mls @ 999 mls/hr IV .Q1H1M ONE Stop: 06/26/21 10:09 Last Infusion: 06/26/21 11:16 Dose: 0 mls/hr Documented by: [id number] Admin: 06/26/21 09:17 Dose: 999 mls/hr Documented by: [id number] Medical Decision Making Differential Diagnosis Gastroenteritis, food borne illness, infections, appendicitis, diverticulitis, inflammatory bowel disease, obstruction, GI bleed, biliary pathology, volvulus, as well as other pathologies. Home Medications Current Medication List: was personally reviewed by me Laboratory Data Attestation: I reviewed the patient's lab results. Result diagrams: 06/26/21 07:20 06/26/21 07:20 Lab Results 06/26/21 06/26/21 06/26/21 Range/Units 07:20 07:20 09:20 WBC 10.78 (4.8-10.8) K/uL RBC 5.43 H (4.2-5.4) M/uL Hgb 16.6 H (12.0-16.0) g/dL Hct 46.0 (37-47) % MCV 84.7 (80-100) fL MCH 30.6 (25-34) pg MCHC 36.1 H (32-36) g/dL RDW Std Deviation 35.7 L (36.4-46.3) fL RDW Coeff of Derik 11.7 (11.5-14.5) % Plt Count 341 (130-400) K/uL MPV 10.6 H (7.4-10.4) fL Immature Gran % (Auto) 0.3 % Neut % (Auto) 65.2 % Lymph % (Auto) 22.8 % [place] % (Auto) 10.9 % Eos % (Auto) 0.6 % Baso % (Auto) 0.2 % Neut # (Auto) 7.04 H (1.4-6.5) K/uL Lymph # (Auto) 2.46 (1.2-3.4) K/uL [place] # (Auto) 1.17 H (0.11-0.59) K/uL Eos # (Auto) 0.06 (0-0.5) K/uL Baso # (Auto) 0.02 (0-0.2) K/uL Immature Gran # (Auto) 0.03 H (0.00-0.02) K/uL Sodium 135 L (136-145) mmol/L Potassium 2.8 L (3.5-5.1) mmol/L Chloride 98 (98-107) mmol/L Carbon Dioxide 26 (21-32) mmol/L Anion Gap 11 (3-11) BUN 8 (6-23) mg/dl Creatinine 0.70 (0.6-1.2) mg/dl Est Cr Clr Drug Dosing 133.6 ml/min Est GFR ( Amer) 136.7 ml/min Est GFR (Non-Af Amer) 117.9 ml/min BUN/Creatinine Ratio 11.4 (10-20) Glucose 104 H (70-99(Fasting)) mg/dl Calcium 9.6 (8.5-10.1) mg/dl Total Bilirubin 2.5 H (0.2-1.0) mg/dl AST 43 H (13-39) U/L ALT 60 H (7-52) U/L Alkaline Phosphatase 58 (34-104) U/L Total Protein 7.9 (6.0-8.3) gm/dl Albumin 4.6 (3.4-5.0) gm/dl Globulin 3.3 (2.5-4.0) gm/dl Albumin/Globulin Ratio 1.4 (0.9-2) Lipase 8 L (11-82) U/L Urine Color Urine Appearance (Clear) Urine pH (4.5-7.5) Ur Specific [place] (1.000-1.030) Urine Protein (Negative) Urine Glucose (UA) (Negative) Urine Ketones (Negative) Urine Blood (Negative) Urine Nitrite (Negative) Urine Bilirubin (Negative) Urine Urobilinogen (Negative) Ur Leukocyte Esterase (Negative) Urine WBC (Auto) (0-5) /hpf Urine RBC (Auto) (0-4) /hpf U Hyaline Cast (Auto) (0-5) /lpf U Epithel Cells (Auto) (0-5) /lpf Urine Bacteria (Auto) (Negative) POC Ur Test (NEG) SARS-CoV-2, RNA, NAAT NEGATIVE (NEGATIVE) 06/26/21 06/26/21 Range/Units 10:24 10:24 WBC (4.8-10.8) K/uL RBC (4.2-5.4) M/uL Hgb (12.0-16.0) g/dL Hct (37-47) % MCV (80-100) fL MCH (25-34) pg MCHC (32-36) g/dL RDW Std Deviation (36.4-46.3) fL RDW Coeff of Derik (11.5-14.5) % Plt Count (130-400) K/uL MPV (7.4-10.4) fL Immature Gran % (Auto) % Neut % (Auto) % Lymph % (Auto) % [place] % (Auto) % Eos % (Auto) % Baso % (Auto) % Neut # (Auto) (1.4-6.5) K/uL Lymph # (Auto) (1.2-3.4) K/uL [place] # (Auto) (0.11-0.59) K/uL Eos # (Auto) (0-0.5) K/uL Baso # (Auto) (0-0.2) K/uL Immature Gran # (Auto) (0.00-0.02) K/uL Sodium (136-145) mmol/L Potassium (3.5-5.1) mmol/L Chloride (98-107) mmol/L Carbon Dioxide (21-32) mmol/L Anion Gap (3-11) BUN (6-23) mg/dl Creatinine (0.6-1.2) mg/dl Est Cr Clr Drug Dosing ml/min Est GFR ( Amer) ml/min Est GFR (Non-Af Amer) ml/min BUN/Creatinine Ratio (10-20) Glucose (70-99(Fasting)) mg/dl Calcium (8.5-10.1) mg/dl Total Bilirubin (0.2-1.0) mg/dl AST (13-39) U/L ALT (7-52) U/L Alkaline Phosphatase (34-104) U/L Total Protein (6.0-8.3) gm/dl Albumin (3.4-5.0) gm/dl Globulin (2.5-4.0) gm/dl Albumin/Globulin Ratio (0.9-2) Lipase (11-82) U/L Urine Color Dark Yellow Urine Appearance Cloudy A (Clear) Urine pH 7.5 (4.5-7.5) Ur Specific [place] 1.015 (1.000-1.030) Urine Protein Trace H (Negative) Urine Glucose (UA) Negative (Negative) Urine Ketones 2+ H (Negative) Urine Blood Negative (Negative) Urine Nitrite Negative (Negative) Urine Bilirubin Negative (Negative) Urine Urobilinogen Negative (Negative) Ur Leukocyte Esterase Negative (Negative) Urine WBC (Auto) 5-10 H (0-5) /hpf Urine RBC (Auto) 0-4 (0-4) /hpf U Hyaline Cast (Auto) 1-5 (0-5) /lpf U Epithel Cells (Auto) >30 H (0-5) /lpf Urine Bacteria (Auto) 4+ H (Negative) POC Ur Test NEG (NEG) SARS-CoV-2, RNA, NAAT (NEGATIVE) Imaging Data Attestation: I personally reviewed and interpreted this imaging study as follows: Radiologist's Impression: Gallbladder Ultrasound 06/26/21 08:05 US gallbladder CLINICAL HISTORY: Vomiting, elevated lfts COMPARISON STUDY: CT of the abdomen and pelvis November 03, 2019. FINDINGS: Liver is sonographically normal. There is no biliary ductal dilatation. Common bile duct measures 2 mm in caliber. Gallbladder is normal. Low-level echoes within the gallbladder are probably artifactual. There are no gallstones. Pancreatic body is normal. Head and tail are partially obscured. No right hydronephrosis. IMPRESSION: No significant abnormality within the right upper quadrant by sonography. ACT 112: Negative or not required by law. Electronically signed by: Perry Mejia M.D. 06/26/2021 8:45 AM MDM Narrative Continuous athletic monitor: Order was placed for continuous athletic monitor. Patient was placed on the athletic monitor. Patient was noted to be in normal sinus rhythm at an initial rate of 95 bpm. The patient is a 26-year-old female who presents today complaining of vomiting. Patient has now been here 4 times in the past 5 days for the same symptoms. She has cyclical vomiting syndrome and states that she feels better when she is here, but her symptoms worsen as soon as she leaves. Labs here reveal a persistent hypokalemia, with potassium of 2.8. Patient hydrated with 2 L of fluids, given 20 mEq potassium in total. She was medicated with multiple antiemetics including droperidol. This did seem to help, however I think given patient's frequent repeat visits she would benefit from observation in the hospital. [facility] hospitalist service, Dr. Martin Ferrera, was consulted and agreed to evaluate the patient. Impression & Plan Vomiting, Acute hypokalemia Discharge Plan Visit Data Chief Complaint: Vomiting Stated Complaint: VOMITING ED Provider: Dick Lopez ED Midlevel Provider: Fernanda Watson Discharge Problem: Vomiting, Acute hypokalemia Patient Disposition: Admitted As Inpatient Discharge Instructions Interventions: ED Discharge Assessment Last Done: 06/26/21 11:51
[2021-06-26] MEDS ORDERED: PROCHLORPERAZINE 2 ML IV ONE (07:12)
[2021-06-26] MEDS ORDERED: POTASSIUM CHLORIDE 10 MEQ in SODIUM CHLORIDE 0.9% 1000ML 1,000 ML IV ONE (07:12)
[2021-06-26] MEDS ORDERED: diphenhydrAMINE 50 MG/ML VIAL IV STA (07:12)
[2021-06-26 07:30] LABS: Basophils # (auto) 0.02 K/uL (0-0.2); Basophils % (auto) 0.2 %; Eosinophils # (auto) 0.06 K/uL (0-0.5); Eosinophils % (auto) 0.6 %; Hemoglobin 16.6 g/dL (12.0-16.0); Immature Granulocytes # (auto) 0.03 K/uL (0.00-0.02); Immature Granulocytes % (auto) 0.3 %; Lymphocytes # (auto) 2.46 K/uL (1.2-3.4); Lymphocytes % (auto) 22.8 %; Mean Corpuscular Hemoglobin 30.6 pg (25-34); Mean Corpuscular Hgb Conc 36.1 g/dL (32-36); Mean Corpuscular Volume 84.7 fL (80-100); Mean Platelet Volume 10.6 fL (7.4-10.4); Monocytes # (auto) 1.17 K/uL (0.11-0.59); Monocytes % (auto) 10.9 %; Neutrophils # (auto) 7.04 K/uL (1.4-6.5); Neutrophils % (auto) 65.2 %; Platelet Count 341 K/uL (130-400); RDW Coefficient of Variation 11.7 % (11.5-14.5); RDW Standard Deviation 35.7 fL (36.4-46.3); Red Blood Count 5.43 M/uL (4.2-5.4); White Blood Count 10.78 K/uL (4.8-10.8)
[2021-06-26 07:52] LABS: Albumin Globulin Ratio 1.4 (0.9-2); Albumin Level 4.6 gm/dl (3.4-5.0); BUN Creatinine Ratio 11.4 (10-20); Bilirubin,Total 2.5 mg/dl (0.2-1.0); Calcium 9.6 mg/dl (8.5-10.1); Creatinine Clr Calc Pharmacy 133.6 ml/min; Est GFR (African American) 136.7 ml/min; Est GFR (Non-African American) 117.9 ml/min; Globulin 3.3 gm/dl (2.5-4.0); Potassium 2.8 mmol/L (3.5-5.1); Total Protein 7.9 gm/dl (6.0-8.3)
--- NOTE | 2021-06-26 08:47 | Ultrasound Report ---
US gallbladder CLINICAL HISTORY: Vomiting, elevated lfts COMPARISON STUDY: CT of the abdomen and pelvis November 03, 2019. FINDINGS: Liver is sonographically normal. There is no biliary ductal dilatation. Common bile duct me asures 2 mm in caliber. Gallbladder is normal. Low-level echoes within the gallbladder are probably a rtifactual. There are no gallstones. Pancreatic body is normal. Head and tail are partially obscured. No right hydronephrosis. IMPRESSION: No significant abnormality within the right upper quadrant by sonography. ACT 112: Negative or not required by law. Electronically signed by: Perry Mejia M.D. 06/26/2021 8:45 AM
[2021-06-26] MEDS ORDERED: DROPERIDOL 5 MG/2 ML VIAL IV STA (09:01)
[2021-06-26] MEDS ORDERED: POTASSIUM CHLORIDE / WTR 10 MEQ/100 ML PLCT IV ONE (09:09)
[2021-06-26] MEDS ORDERED: SODIUM CHLORIDE 0.9% 1000ML 1,000 ML IV ONE (09:09)
[2021-06-26 10:45] LABS: Appearance Urine Cloudy (Clear); Bacteria Urine Automated 4+ (Negative); Bilirubin Urine Negative (Negative); Blood Urine Negative (Negative); Color Urine Dark Yellow; Epithelial Cell Urine Auto >30 /lpf (0-5); Glucose Urine UA Negative (Negative); Ketones Urine 2+ (Negative); Leukocyte Esterase Urine Negative (Negative); Nitrite Urine Negative (Negative); Specific Gravity Urine 1.015 (1.000-1.030); Urobilinogen Urine Negative (Negative); pH Urine 7.5 (4.5-7.5)
[2021-06-26 10:52] LABS: Protein Urine Trace (Negative)
[2021-06-26 11:00] LABS: RBC Urine Automated 0-4 /hpf (0-4)
--- NOTE | 2021-06-26 11:02 | History & Physical Report ---
Date of Service June 26, 2021 Assessment & Plan (1) Cyclic vomiting syndrome: Plan: Due to daily marijuana use. Improved when she abstained. Other etiology less likely. No ingestions, no other sick contacts, no diarrhea. Following similar pattern to prior CVS episodes. - Zofran PRN - Droperidol PRN (worked extremely well in the ER) -> Discussed with pharmacy. Use is off-label for CVS. Pharmacy felt droperidol 0.625 mg IV BID PRN was safe dosing schedule. -> Keep on telemetry & get daily EKGs - Resume home pantoprazole at BID dosing for possible gastritis/esophagitis; can likely move back to daily dosing at discharge. - Had previously been prescribed amitriptyline to prevent episodes, but with multiple QTc prolonging medications, will hold for now. Consider on discharge. - IV fluids with KCl - Replete other electrolytes PRN (2) Transaminitis: Plan: Increase in Tbili, AST/ALT to 2.5 & 43/60 this admission. RUQ u/s on 06/26 was entirely normal without even gallstones. No RUQ tenderness or pain. - Possibly from prolonged emesis vs. medication-induced? - Monitor LFTs - If they increase further, consider acute hepatitis panel (3) Anxiety: Plan: Treated with marijuana. - Encouraged cessation of marijuana and to f/u with PCP or psychiatry for better treatment plans (4) DVT prophylaxis: Plan: Early ambulation - Low DVT risk per admission calculator History of Present Illness Primary Care Provider: Anahy Galloway, DO 26yo F w/ hx of cyclical vomiting syndrome presenting with the same. She was admitted to the hospital in 02/2021 for CVS. She had an EGD which showed gastritis. She improved with supportive measures. She was encouraged to stop marijuana at that time, and successfully did for about [address] Tavarez in the office, was started on amitriptyline, and her pantoprazole as reduced to daily. Unfortunately, she resumed marijuana use in March. She reports stopping for about 2 weeks in March and then again on April 10 for about 28 days, but since that time has resumed smoking marijuana daily. She reports she smokes "continuously," using a vape pen to take hits throughout the entire day. About 4-5 days ago, she began to vomit. The vomitus is clear liquid or Gatorade or whatever she has tried to get down. She denies hematemesis or coffee-ground emesis. She reports she is throwing up about every 15 - 20 minutes. She has tried to take her oral Zofran, compazine, and promethazine, but none of them stay down long enough for her to feel they are effective. She does have promethazine suppositories that she is using which she reports help, but only for a short time. She denies any sick contacts, no one else around her has GI symptoms. She has not had any fevers/chills, chest pain, abdominal pain, urinary symptoms, or diarrhea. She reports no bowel movements in the last few days which she attributes to not eating anything. She notes some shortness of breath when she gets panicky about throwing up, but otherwise no cough or other respiratory symptoms. Allergies Allergy/AdvReac Type Severity Reaction Status Date / Time No Known Allergies Allergy Verified 06/26/21 08:36 Home Medications Medication Instructions Recorded Confirmed Type norethindrone 0.4 mg-ethinyl 1 tab PO HS 12/18/20 06/26/21 History estradiol 35 mcg tablet (Briellyn) promethazine 25 mg rectal 25 mg UT Q6H PRN #12 ea 06/24/21 06/26/21 Rx suppository Past Med/Surg History Medical History Bipolar disorder, unspecified BMI 45.0-49.9, adult Cyclic vomiting syndrome Depression GERD (gastroesophageal reflux disease) History of hemoptysis Morbid obesity Oral contraceptive use Panic attacks Surgical History History of facial surgery History of tonsillectomy and adenoidectomy Family History Sister Anxiety Depression Autism Father Hypertension Anxiety Mother Breast cancer, Onset Age: 55 Anxiety Denies family history of Ovarian cancer Prostate cancer Myocardial infarction Colorectal cancer Social History Smoking Status: Never smoker Tobacco Type: E-cigarettes / Vaping Second Hand Exposure: No; Hx Alcohol Use: No Hx Substance Use: Yes Last Used Substance: Days (ago) Substance Use Type Other:: medical, vapor Preferred Language: Malaysian Communication Ability: Effective Visual Impairment: No Limitations Hearing Ability: Normal National Account Executive Required: No Beliefs That Will Affect Care: None marital status: Single Current Living Situation: Other Current Living Situation Comment: [place] current occupational status: employed current occupation: [employer] How many Children do You have: 0 Feels Safe at Home: Yes Diet Comment: regular caffeine: No during the past year weight has: decreased > 10 lbs Dental Care, Regularly: Yes Physical Activity Frequency: Other Seatbelt Use: always Sunscreen Use: Yes Assistive Devices: None Review of Systems Review of Systems: All systems reviewed & are unremarkable except as noted in HPI & below Physical Exam Constitutional: WD/WN, vitals as above + acute distress Eyes: EOM intact bilaterally; no conjunctival abnormality ENMT: external ear and nose normal, oropharynx normal Neck: trachea midline, no thyromegaly normal visual inspection Respiratory: normal respiratory effort, lungs clear to auscultation no respiratory distress Cardiovascular: RRR, no murmur, no edema Gastrointestinal (Abdomen): Inspection/Auscultation: abdomen normal to inspection; abdomen not distended Musculoskeletal: no cyanosis or clubbing, extremities motor strength 5/5 Skin: no rashes, warm and dry Neurologic: moves all extremities and awake Psychiatric: Orientation: alert, oriented to person and cooperative Results & Data Results & Data ([facility]) Vital Signs (Past 12 Hours) Vital Signs Temp Pulse Pulse Resp BP BP Pulse Ox 06/26/21 10:00 98 H 16 128/97 98 06/26/21 08:00 78 16 171/109 H 95 06/26/21 07:51 98 H 16 99 06/26/21 06:55 36.4 C L 98 H 16 174/124 H 99 Code Status & VTE Plan VTE Prophylaxis Plan VTE Prophylaxis will be ordered: Yes PG Care Time/CCT Total # of Minutes Spent Total Time Spent with Patient: Total time spent is greater than 50% in coordination of care (as documented) at patient's floor/unit and/or counseling patient: Coding Level of Care Code INT OBSERVATION CARE 70M LVL 3 Diagnoses Cyclic vomiting syndrome R11.15 Anxiety F41.9 DVT prophylaxis Z29.9 Transaminitis R74.01
[2021-06-26] MEDS: PANTOprazole 40 MG TAB PO SCH ×2 (11:23→23:10)
[2021-06-26] MEDS ORDERED: ONDANSETRON INJ 2 MG/ML 2 ML VIAL IV PRN (12:20)
[2021-06-26] MEDS ORDERED: ACETAMINOPHEN 325 MG TAB PO PRN (12:20)
[2021-06-26] MEDS: ondansetron HCL 8 MG in DEXTROSE 5% 50 ML IV PRN ×2 (12:45→21:35)
[2021-06-26] MEDS: POTASSIUM CHLORIDE 40 MEQ in SODIUM CHLORIDE 0.9% 1000ML 1,000 ML IV SCH (14:07)
[2021-06-26] MEDS: DROPERIDOL 5 MG/2 ML VIAL IV PRN (22:40)
[2021-06-26] MEDS ORDERED: MELATONIN 3 MG TAB PO PRN (23:44)
[2021-06-27] MEDS: POTASSIUM CHLORIDE 40 MEQ in SODIUM CHLORIDE 0.9% 1000ML 1,000 ML IV SCH ×2 (00:14→10:51)
[2021-06-27] MEDS ORDERED: CALCIUM CARBONATE 500 MG CHEWABLE TAB PO PRN (02:06)
[2021-06-27] MEDS: ondansetron HCL 8 MG in DEXTROSE 5% 50 ML IV PRN ×2 (04:33→12:05)
--- NOTE | 2021-06-27 06:33 | Electrocardiogram Report ---
Test Reason : Blood Pressure : / mmHG Vent. Rate : 082 BPM Atrial Rate : 082 BPM P-R Int : 122 ms QRS Dur : 084 ms QT Int : 390 ms P-R-T Axes : 048 011 020 degrees QTc Int : 455 ms Poor data quality, interpretation may be adversely affected Normal sinus rhythm with sinus arrhythmia Normal ECG When compared with ECG of 25-JUN-2021 13:18, Nonspecific T wave abnormality now evident in Anterior leads Confirmed by Sven Guerrier ([id number]) on 06/26/2021 4:24:27 PM Also confirmed by Sven Guerrier ([id number]), dictionary editor KAYLA DIOR ([id number]) on 06/27/2021 6:33:15 AM Referred By: REFERRED SELF Confirmed By:Kumar Guerrier
[2021-06-27 07:49] LABS: Hematocrit (blood only) 42.7 % (37-47); Hemoglobin 15.6 g/dL (12.0-16.0); Mean Corpuscular Hemoglobin 30.7 pg (25-34); Mean Corpuscular Hgb Conc 36.5 g/dL (32-36); Mean Corpuscular Volume 84.1 fL (80-100); Mean Platelet Volume 10.5 fL (7.4-10.4); Platelet Count 393 K/uL (130-400); RDW Coefficient of Variation 11.5 % (11.5-14.5); RDW Standard Deviation 35.3 fL (36.4-46.3); Red Blood Count 5.08 M/uL (4.2-5.4); White Blood Count 12.75 K/uL (4.8-10.8)
--- NOTE | 2021-06-27 07:56 | Hospitalist Progress Note ---
Date of Service June 27, 2021 Assessment & Plan (1) Cyclic vomiting syndrome: Plan: Likely due to daily marijuana use. Improved when she abstained. Other etiology less likely. No ingestions, no other sick contacts, no diarrhea. Following similar pattern to prior CVS episodes. - Zofran PRN - Droperidol PRN (worked extremely well in the ER) -> Discussed with pharmacy. Use is off-label for CVS. Pharmacy felt droperidol 0.625 mg IV BID PRN was safe dosing schedule. -> Keep on telemetry & get daily EKGs EKG 06/27: QTc 465, sinus tachycardia -Increased home pantoprazole to BID dosing for possible gastritis/esophagitis; can likely move back to daily dosing at discharge. - Had previously been prescribed amitriptyline to prevent episodes, but with multiple QTc prolonging medications, held on admission. May consider restarting on discharge once droperidol discontinued BMP: -Oxalate repletion as needed: (2) Transaminitis: Plan: Increase in Tbili, AST/ALT to 2.5 & 43/60 this admission. RUQ u/s on 06/26 was entirely normal without gallstones. No RUQ tenderness or pain. - Possibly from prolonged emesis vs. medication-induced? - Monitor LFTs - If they increase further, consider acute hepatitis panel (3) Anxiety: Plan: Treated with marijuana. - Encouraged cessation of marijuana and to f/u with PCP or psychiatry for better treatment plans are likely contributing to vomiting exacerbations (4) DVT prophylaxis: Plan: Early ambulation - Low DVT risk per admission calculator Admission and Anticipated Discharge Date Admission Date: June 26, 2021 Results & Data Results & Data ([facility]) Vital Signs (Past 12 Hours) Vital Signs Temp Pulse Pulse Resp BP BP Pulse Ox 06/27/21 07:46 36.8 C 103 H 20 141/97 H 92 06/27/21 04:17 36.8 C 83 18 154/94 H 95 06/27/21 00:18 154/88 H 06/26/21 23:57 103 H 06/26/21 23:55 36.9 C 107 H 20 167/116 H 96 PG Care Time/CCT Total # of Minutes Spent Total Time Spent with Patient: Total time spent is greater than 50% in coordination of care (as documented) at patient's floor/unit and/or counseling patient: Coding Diagnoses Cyclic vomiting syndrome R11.15 Transaminitis R74.01 Anxiety F41.9 DVT prophylaxis Z29.9
[2021-06-27 08:08] LABS: Albumin Globulin Ratio 1.3 (0.9-2); Albumin Level 4.3 gm/dl (3.4-5.0); BUN Creatinine Ratio 8.3 (10-20); Bilirubin,Total 2.7 mg/dl (0.2-1.0); Calcium 9.2 mg/dl (8.5-10.1); Creatinine Clr Calc Pharmacy 157.4 ml/min; Est GFR (African American) 143.8 ml/min; Globulin 3.4 gm/dl (2.5-4.0); Magnesium 1.8 mg/dl (1.7-2.4); Phosphorus 3.1 mg/dl (2.5-4.9); Potassium 3.3 mmol/L (3.5-5.1); Total Protein 7.7 gm/dl (6.0-8.3)
[2021-06-27] MEDS: PANTOprazole 40 MG TAB PO SCH (08:20)
[2021-06-27] MEDS: DROPERIDOL 5 MG/2 ML VIAL IV PRN (08:21)
--- NOTE | 2021-06-27 10:31 | Electrocardiogram Report ---
Test Reason : Blood Pressure : / mmHG Vent. Rate : 105 BPM Atrial Rate : 105 BPM P-R Int : 134 ms QRS Dur : 080 ms QT Int : 352 ms P-R-T Axes : 033 012 020 degrees QTc Int : 465 ms Sinus tachycardia Otherwise normal ECG When compared with ECG of 26-JUN-2021 12:58, No significant change was found Confirmed by Sven Guerrier ([id number]) on 06/27/2021 10:31:21 AM Referred By: REFERRED SELF Confirmed By:Kumar Guerrier
--- NOTE | 2021-06-27 14:49 | Discharge Summary ---
Date of Service June 27, 2021 Admission HPI Per Admitting Provider 26yo F w/ hx of cyclical vomiting syndrome presenting with the same. She was admitted to the hospital in 02/2021 for CVS. She had an EGD which showed gastritis. She improved with supportive measures. She was encouraged to stop marijuana at that time, and successfully did for about [address] Tavarez in the office, was started on amitriptyline, and her pantoprazole as reduced to daily. Unfortunately, she resumed marijuana use in March. She reports stopping for about 2 weeks in March and then again on April 10 for about 28 days, but since that time has resumed smoking marijuana daily. She reports she smokes "continuously," using a vape pen to take hits throughout the entire day. About 4-5 days ago, she began to vomit. The vomitus is clear liquid or Gatorade or whatever she has tried to get down. She denies hematemesis or coffee-ground emesis. She reports she is throwing up about every 15 - 20 minutes. She has tried to take her oral Zofran, compazine, and promethazine, but none of them st ay down long enough for her to feel they are effective. She does have promethazine suppositories that she is using which she reports help, but only for a short time. She denies any sick contacts, no one else around her has GI symptoms. She has not had any fevers/chills, chest pain, abdominal pain, urinary symptoms, or diarrhea. She reports no bowel movements in the last few days which she attribu la nena to not eating anything. She notes some shortness of breath when she gets panicky about throwing up, but otherwise no cough or other respiratory symptoms. Principal Diagnosis Cyclic vomiting syndrome Discharge Exam General: A&Ox3. NAD. Cooperative. HEENT: Atraumatic, normocephalic. Visual acuity and hearing intact. Pulm: CTAB A&P. -wheezes, -rales, -rhonchi. Symmetrical chest rise. No increase in work of breathing. No respiratory distress. Cardiac: RRR, -mrg. Radial pulses intact and symmetrical. Pulse has been tachycardic intermittently throughout the day, as a rate of approximately 8090 at time of bedside assessment. Abdominal: Nontender, nondistended, soft. BS present. Extremities: Moving all extremities equally, sitting up comfortably in bed at time of assessment. Skin is warm and dry. Radial pulse intact bilaterally, PT pulse intact bilaterally. Soft touch intact in hands and feet without deficit or asymmetry. Discharge Data Allergies Allergy/AdvReac Type Severity Reaction Status Date / Time No Known Allergies Allergy Verified 06/26/21 08:36 Consultations 06/26/21 10:10 ED Decision to Admit Stat Ordered Studies 06/26/21 08:05 US gallbladder Stat Hospital Course (1) Cyclic vomiting syndrome: Daniela is a 26-year-old female with history of cyclic vomiting syndrome provoked by marijuana use who presented with increased nausea/vomiting following recurrent daily marijuana use. Her symptoms did improve, but did not resolve following admission. She felt greatly improved following IV rehydration. She was hypokalemic requiring repletion. Day following admission patient did not wish to remain in the hospital and wanted discharged home. She reports she is feeling a little bit better and was tolerating full liquids, although not solid food. She is still intermittently nauseous but slightly improved from prior. She reports her energy and overall feeling was much better after hydration. She did have a transaminitis which up trended slightly. Discussed this with pascual alcantara, and a hepatitis panel was drawn. Recommended additional overnight observation given continued symptoms and pending hepatitis work-up, patient did not wish to remain for this. Gallbladder/liver ultrasound did not show any liver abnormalities or gallbladder pathology. On shared decision making discussed that patient can return home, but which should monitor for any worsening symptoms or signs of icterus/jaundice turn for prompt reevaluation if these occur. Also discussed that she will need a PCP follow-up within 5 days and have a CMP performed both for a transaminase check and potassium check, to which she is agreeable. She was able to tolerate boost prior to discharge, and reports that she has used this to supplement her diet while her symptoms gradually resolved in the past. Potassium did improve to 3.3 following repletion, she is given additional repletion prior to discharge. To do as outpatient: 1. Follow-up with PCP within 5 days 2. Follow-up on hepatitis acute panel results 3. Repeat CMP follow-up post transaminitis 4. Follow-up of potassium stability on CMP as above 5. Encouraged marijuana cessation, as this has been a known trigger for her in the past and her symptoms recurred in the setting of recent daily marijuana use. Patient expresses insight into this, "I know I have to quit, it does this ", and feels comfortable following up with outpatient providers for additional management of her anxiety. Likely due to daily marijuana use. Improved when she abstained. Other etiology less likely. No ingestions, no other sick contacts, no diarrhea. Following similar pattern to prior CVS episodes. - Zofran PRN - Droperidol PRN (worked extremely well in the ER) -> Discussed with pharmacy. Use is off-label for CVS. Pharmacy felt droperidol 0.625 mg IV BID PRN was safe dosing schedule. -> Kept on telemetry with daily EKGs while inpatient, no torsades/QTp EKG 06/27: QTc 465, sinus tachycardia -Increased home pantoprazole to BID dosing for possible gastritis/esophagitis; can likely move to daily dosing at discharge. - Had previously been prescribed amitriptyline to prevent episodes, but with multiple QTc prolonging medications, held on admission. Resume on discharge (2) Transaminitis: Increase in Tbili, AST/ALT to 2.5 & 43/60 this admission. RUQ u/s on 06/26 was entirely normal without gallstones. No RUQ tenderness or pain. - Possibly from prolonged emesis vs. medication-induced - Monitor LFTs. Hepatitis panel pending, CMP recheck as above (3) Anxiety: Treated with marijuana. - Encouraged cessation of marijuana and to f/u with PCP or psychiatry for better treatment plans are likely contributing to vomiting exacerbations (4) DVT prophylaxis: Early ambulation - Low DVT risk per admission calculator Total Time Total Time Spent Total Time Spent (In Minutes): Time spend day of discharge 70 minutes including direct patient care, documentation, review of labs and images, and coordination of care. Discharge Plan Discharge Items Patient Disposition: Home - Self-Care Reason For Visit: VOMITING Discharge Diagnosis: Cyclic vomiting syndrome Activity: Per Instructions section Non-emergency contact: Primary Care Provider Call non-emergency contact if: you have any medication questions and your symptoms worsen Follow-up/Referrals: Anahy Galloway DO [Primary Care Provider] - Diet: Regular Addtl Attending Provider Instructions: You are seen in the hospital for an acute exacerbation of cyclic vomiting syndrome. You have had similar episodes provoked by marijuana use in the past, and this episode felt similar to prior. Your symptoms had not completely improved at time of discharge, however you strongly preferred to be discharged home and did not wish to remain for further inpatient treatment of your symptoms. You were able to tolerate a small amount of full liquids/boost, and were comfortable increasing this on your own as you have done in the past. Your liver enzymes were elevated and your hepatitis panel was pending, and would not be available for least another 24 hours. It was recommended that both for continued symptoms of nausea and for follow-up of your elevated enzymes that you remain for an additional day in the hospital, however you strongly preferred to be discharged home and not remain in the hospital. An ultrasound of your liver and gallbladder did not show any abnormal liver appearance, or gallbladder pathology. On shared decision making a follow-up CMP will be performed as outpatient with close follow-up to your primary care provider in [place] this week. Your acute hepatitis panel is pending, you will receive a call regarding these results and if you do not receive a call by your PCP follow-up appointment please have them check on these results. If you develop any new or worsening symptoms, especially any yellow tinge in the eyes or skin seek prompt medical reevaluation. Your blood pressure heart rate was intermittently high with nausea day of discharge, but returned to normal between these episodes. Your potassium levels were very low on admission, you were given IV repletion and these improved to 3.3 (normal is above 3.5) and you are given additional repletion prior to discharge. Please have your potassium level rechecked at your follow-up appointment, this will be included in the CMP noted below. Your kidney function was normal, and you had normal urine output at discharge. A followup appointment is being scheduled for you with Dr. Galloway. You should be seen within 5 days. You should have a CMP performed at that appointment. If you do not receive a call to confirm your appointment, please call her office directly at the number above, as they are closed on Sundays but a scheduling message was left prior to discharge. If you develop any new or worsening symptoms including fever, chills, sweats, chest pain, chest pressure, difficulty breathing, uncontrolled nausea/vomiting, rash, wheezing, passing out or nearly passing out, bleeding, black/bloody bowel movements, or other new or concerning symptoms please call your primary care physician, or call 911 for re-evaluation in the emergency department if you are very concerned. Pending Studies at Discharge: Yes Stand-Alone Forms: [facility], Sm[facility] Cessation Medications and DC Order Prescriptions: Continued Briellyn 0.4-35 mg-mcg tablet 1 tab PO HS RF: 0 promethazine 25 mg suppository 25 mg VA Q6H PRN (Reason: sedation) Qty: 12 RF: 0 Discharge Orders: Discharge Order (Routine); Ordered 06/27/21 Ordered By: Pan Varela Admission Data Admit Date/Time: 06/26/21 12:14 Attending Provider: Pan Varela Admit Provider: Martin Ferrera Primary Care Provider: Anahy Galloway Other Providers: Martin Ferrera Coding Level of Care Code D/C DAY MANAGEMENT >30 MINS Diagnoses Cyclic vomiting syndrome R11.15 Transaminitis R74.01 Anxiety F41.9 DVT prophylaxis Z29.9
[2021-06-29 13:17] LABS: HBSAG NON-REACTIVE (NON-REACTIVE); Hepatitis A Antibody IgM NON-REACTIVE (NON-REACTIVE); Hepatitis B Core Antibody IgM NON-REACTIVE (NON-REACTIVE)
== END 2021-06-27 15:23 | disposition home or self-care (01) ==
LOC: ED 06:45 → 2N 06:45 → SUATTDRO 12:14

== ENCOUNTER 2022-05-09 14:25 | Inpatient (IN) ==
[2022-05-09] MEDS ORDERED: SODIUM CHLORIDE 0.9% 500 ML IV STA (14:39)
[2022-05-09] MEDS ORDERED: ONDANSETRON INJ 2 MG/ML 2 ML VIAL ONE (15:46)
[2022-05-09 16:18] LABS: Basophils # (auto) 0.03 K/uL (0-0.2); Basophils % (auto) 0.2 %; Eosinophils # (auto) 0.02 K/uL (0-0.50); Eosinophils % (auto) 0.1 %; Hematocrit (blood only) 49.7 % (37.0-47.0); Hemoglobin 18.8 g/dl (12.0-16.0); Immature Granulocytes # (auto) 0.08 K/uL (0.01-0.20); Immature Granulocytes % (auto) 0.4 %; Lymphocytes # (auto) 2.48 K/uL (1.2-3.4); Lymphocytes % (auto) 12.6 %; Mean Corpuscular Hemoglobin 30.6 pg (25.0-34.0); Mean Corpuscular Hgb Conc 37.8 g/dL (32.0-36.0); Mean Corpuscular Volume 80.9 fL (80.0-100.0); Mean Platelet Volume 10.5 fL (9.4-12.4); Monocytes # (auto) 1.69 K/uL (0.11-0.59); Monocytes % (auto) 8.6 %; Neutrophils # (auto) 15.41 K/uL (1.40-6.50); Neutrophils % (auto) 78.1 %; Platelet Count 516 K/uL (130-400); RDW Coefficient of Variation 12.2 % (11.5-14.5); RDW Standard Deviation 35.5 fL (36.4-46.3); Red Blood Count 6.14 M/uL (4.20-5.40); White Blood Count 19.71 K/ul (4.8-10.8)
[2022-05-09] MEDS ORDERED: SODIUM CHLORIDE 0.9% 1000ML 1,000 ML IV ONE (16:49)
--- NOTE | 2022-05-09 16:59 | Emergency Department Note ---
Impression & Plan Transaminitis ADMIT ED Provider Note HPI: The patient is a very pleasant 27-year-old female with history of hyperemesis gravidarum, cyclic vomiting syndrome, states that she is currently about 8 weeks with twins, presents the emergency department chief complaint of "feeling dehydrated". Patient states she has been very thirsty recently, states she has been nauseated, denies that she has not had any recent vomiting over the past several days leading to her presentation. Denies any abdominal pain or vaginal discharge, denies any vaginal bleeding. Patient states that she feels that she is dehydrated and needs IV hydration, she states that she feels naus eated and she can only tolerate small amounts of oral intake before she gets more nauseated. On arrival here to the ED the patient is hemodynamically stable, she is noted to be hypertensive at 143/111 and mildly tachycardic, she is saturating well on room air and is otherwise nontoxic-appearing on my initial evaluation. Patient is afebrile on arrival. ROS: - Per HPI *Outpatient medications and allergy history reviewed. *Pertinent external medical records reviewed. PE: General: Alert HEENT: Normocephalic, trachea midline Eyes: Extraocular eye movement is intact, no scleral erythema Pulmonary: Clear to auscultation bilaterally, no wheezing Cardio: Regular rate and rhythm GI: Abdomen is soft, nontender, Mccauley sign is negative : No suprapubic tenderness MSK: No evidence of trauma or malformation of the extremities, no edema Skin: No evidence of rash Neuro: Alert, no focal deficits Psychiatric: Cooperative public health officer: - An order was placed for continuous cardiac monitoring - Patient was noted to be in sinus rhythm with a rate of 100 Interventions provided in ED: -IV fluid bolus Medical Decision Making: Patient presented to the emergency department with nausea. IV was established, lab work obtained, patient was placed on gas line servicer and IV fluid bolus was initiated. Patient appears in no acute distress on arrival, she does not have any abdominal pain or tenderness on my exam. She is hemodynamically stable on arrival. Lab work shows evidence of multiple abnormalities, she has a persistent leukocytosis of approximately 19,000, also noted to be possibly hemoconcentrated with a hemoglobin of 18.8 today, thrombocytosis of 536. There is evidence of multiple biliary issues on lab work as well, bilirubin is elevated at 6.9 with a T bili of 2.7, ALT is elevated at 1481, AST 545. Hypokalemia noted at 2.9 which was repleted orally. Patient adamantly denies taking any medications recently other than Unisom, states she has not had any Tylenol, denies any other medication such as cough syrup. Ultrasound imaging of the gallbladder was obtained and is unremarkable, no evidence of obstructive pathology, liver appears unremarkable on ultrasound imaging. Acute hepatitis panel was ordered and sent, coag panel was sent and INR is 1.1. We will also add on further testing including Anaplasma, mononucleosis. Patient's presentation and lab work/imaging findings were discussed with on-call gastroenterology, Dr. Mo, he was in agreement for inpatient consultation. Recommended adding on additional markers to include NATHALIE, anti-smooth muscle a ntibody, ceruloplasmin, as well as obtaining liver Doppler to assess for any potential thrombus within the hepatic vasculature. We will hold off on NAC at this time as the patient denies taking any Tylenol, serum Tylenol level is within normal limits, INR is within normal limits. Case was discussed with on-call SOLAR LAB TECHNICIAN for [facility], Dr. Polk, who is in agreement to admit the patient for further management with GI consultation. Patient is in agreement to the above plan, she was well-appearing on my reassessment stated she was feeling improved following IV fluids. She was admitted in stable condition for further care and specialty consultation. Consultants contacted: - Gastroenterology, Dr. Mo - SOLAR LAB TECHNICIAN, Dr. Polk Disposition discussion held by myself with: Patient and family member at the bedside Diagnosis: 1. Transaminitis, acute, nonspecific 2. Hyperbilirubinemia 3. , first trimester 4. Nausea, acute 5. Nonspecific leukocytosis 6. Thrombocytosis, acute, mild 7. Hypokalemia, acute, moderate Disposition: Admission Piotr Orozco DO Emergency Medicine Past Med/Surg History Medical History Anxiety Bipolar disorder, unspecified BMI 45.0-49.9, adult Cyclic vomiting syndrome Depression GERD (gastroesophageal reflux disease) History of hemoptysis Morbid obesity Oral contraceptive use Panic attacks Surgical History History of facial surgery History of tonsillectomy and adenoidectomy Family History Sister Anxiety Depression Autism Father Hypertension Anxiety Mother Breast cancer, Onset Age: 55 Anxiety Denies family history of Ovarian cancer Prostate cancer Myocardial infarction Colorectal cancer Social History Smoking Status: Former smoker Tobacco Type: E-cigarettes / Vaping Second Hand Exposure: Yes; Hx Alcohol Use: No Hx Substance Use: Yes (medical card) Last Used Substance: Days (ago) Last Used Substance Other:: occasionally Substance Use Type Other:: states has not used since positive test Preferred Language: [place] Communication Ability: Effective Visual Impairment: No Limitations Hearing Ability: Normal Floorworker Required: No Beliefs That Will Affect Care: None marital status: Single Current Living Situation: Significant Other Current Living Situation Comment: Fiance current occupational status: employed current occupation: [employer] How many Children do You have: 0 Other Information That Helps Us Care for You: No Feels Safe at Home: Yes Safety Concerns: Feels Safe At This Time Diet Comment: regular caffeine: No during the past year weight has: decreased > 10 lbs Dental Care, Regularly: Yes Physical Activity Frequency: Other Seatbelt Use: always Sunscreen Use: Yes Assistive Devices: Contacts Allergies Allergies Allergy/AdvReac Type Severity Reaction Status Date / Time No Known Allergies Allergy Verified 05/09/22 18:10 Home Meds Home Medications Medication Instructions Recorded Confirmed vit no.95-ferrous 1 tab PO DAILY 05/05/22 05/09/22 fumarate 28 mg-folic acid 800 mcg tablet () Results & Data (ED) Vital Signs Vital Signs - 24 hr 05/09/22 14:25 05/09/22 14:41 05/09/22 17:41 Temperature 36.8 C Temperature Source Temporal Artery Scan Pulse Rate 111 H Pulse Rate [Apical] 93 H Pulse Rate from SpO2 Sensor Respiratory Rate 20 18 Respiratory Effort / Characteristics Non-Labored Spontaneous Respiratory Depth Normal Blood Pressure Blood Pressure [Right Arm] 143/111 H 144/108 H Blood Pressure Mean Blood Pressure Mean [Right Arm] 121 120 Pulse Oximetry 96 98 Oxygen Delivery Method Room Air Room Air Sepsis Recent Fever Within 48 Hours No Sepsis New/Unexplained Change in Mental Status No Sepsis Action Taken by Nursing No Action Required 05/09/22 18:09 05/09/22 18:56 05/09/22 19:31 Temperature Temperature Source Pulse Rate 87 Pulse Rate [Apical] 102 H 96 H Pulse Rate from SpO2 Sensor Respiratory Rate 18 18 18 Respiratory Effort / Characteristics Spontaneous Respiratory Depth Normal Blood Pressure 136/96 Blood Pressure [Right Arm] 143/99 H 125/97 Blood Pressure Mean 109 Blood Pressure Mean [Right Arm] 113 106 Pulse Oximetry 98 96 97 Oxygen Delivery Method Room Air Room Air Sepsis Recent Fever Within 48 Hours Sepsis New/Unexplained Change in Mental Status Sepsis Action Taken by Nursing 05/09/22 20:30 05/09/22 21:00 05/09/22 22:00 Temperature Temperature Source Pulse Rate 81 99 H 84 Pulse Rate [Apical] Pulse Rate from SpO2 Sensor 83 100 H 86 Respiratory Rate 14 16 18 Respiratory Effort / Characteristics Respiratory Depth Blood Pressure 166/108 H 164/108 H 148/109 H Blood Pressure [Right Arm] Blood Pressure Mean 127 126 122 Blood Pressure Mean [Right Arm] Pulse Oximetry 97 99 96 Oxygen Delivery Method Sepsis Recent Fever Within 48 Hours Sepsis New/Unexplained Change in Mental Status Sepsis Action Taken by Nursing Laboratory Data 05/09/22 14:39 05/09/22 14:34 Lab Results 05/09/22 05/09/22 05/09/22 Range/Units 14:34 14:34 14:39 WBC 19.71 H (4.8-10.8) K/ul RBC 6.14 H (4.20-5.40) M/uL Hgb 18.8 H (12.0-16.0) g/dl Hct 49.7 H (37.0-47.0) % MCV 80.9 (80.0-100.0) fL MCH 30.6 (25.0-34.0) pg MCHC 37.8 H (32.0-36.0) g/dL RDW Std Deviation 35.5 L (36.4-46.3) fL RDW Coeff of Derik 12.2 (11.5-14.5) % Plt Count 516 H (130-400) K/uL MPV 10.5 (9.4-12.4) fL Immature Gran % (Auto) 0.4 % Neut % (Auto) 78.1 % Lymph % (Auto) 12.6 % Yancey % (Auto) 8.6 % Eos % (Auto) 0.1 % Baso % (Auto) 0.2 % Neut # (Auto) 15.41 H (1.40-6.50) K/uL Lymph # (Auto) 2.48 (1.2-3.4) K/uL Yancey # (Auto) 1.69 H (0.11-0.59) K/uL Eos # (Auto) 0.02 (0-0.50) K/uL Baso # (Auto) 0.03 (0-0.2) K/uL Immature Gran # (Auto) 0.08 (0.01-0.20) K/uL PT (9.0-12.0) Seconds INR (0.9-1.1) Sodium 138 (136-145) mmol/L Potassium 2.9 L (3.5-5.1) mmol/L Chloride 91 L (98-107) mmol/L Carbon Dioxide 33 H (21-32) mmol/L Anion Gap 14 H (3-11) BUN 15 (6-23) mg/dl Creatinine 0.82 (0.6-1.2) mg/dl Est Cr Clr Drug Dosing 109.5 ml/min Est GFR ( Amer) 112.1 ml/min Est GFR (Non-Af Amer) 96.7 ml/min BUN/Creatinine Ratio 18.3 (10-20) Glucose 91 (70-99(Fasting)) mg/dl Calcium 10.2 H (8.5-10.1) mg/dl Total Bilirubin 6.9 H (0.2-1.0) mg/dl Direct Bilirubin 2.7 H (0-0.2) mg/dl AST 545 H (13-39) U/L ALT 1481 H (7-52) U/L Alkaline Phosphatase 62 (34-104) U/L C-Reactive Protein 2.23 H (0-0.5) mg/dl Total Protein 8.7 H (6.0-8.3) gm/dl Albumin 4.7 (3.4-5.0) gm/dl Globulin 4.0 (2.5-4.0) gm/dl Albumin/Globulin Ratio 1.2 (0.9-2) Lipase 18 (11-82) U/L TSH (0.300-4.500) uIu/ml Free T4 (0.61-1.60) ng/dl HCG, Quant mIU/ml Acetaminophen (10-30) ug/ml Adenovirus (PCR) (NotDetected) Anaplasma Smear See Comment Babesia Smear See Comment B. pertussis DNA (PCR) (NotDetected) B.parapertussis DNA PCR (NotDetected) C. pneumoniae DNA (PCR) (NotDetected) Coronavirus OC43 (PCR) (NotDetected) Coronavirus HKU1 (PCR) (NotDetected) Coronavirus 229E (PCR) (NotDetected) SARS-CoV-2 (PCR) (NotDetected) Coronavirus NL63 (PCR) (NotDetected) Monoscreen (Negative) Human Metapneumovir PCR (NotDetected) Influenza Type A (PCR) (NotDetected) Influenza Type B (PCR) (NotDetected) M. pneumoniae (PCR) (NotDetected) Parainfluenza 1 (PCR) (NotDetected) Parainfluenza 2 (PCR) (NotDetected) Parainfluenza 3 (PCR) (NotDetected) Parainfluenza 4 (PCR) (NotDetected) RSV (PCR) (NotDetected) Entero/Rhino (PCR) (NotDetected) 05/09/22 05/09/22 05/09/22 Range/Units 17:16 17:37 20:00 WBC (4.8-10.8) K/ul RBC (4.20-5.40) M/uL Hgb (12.0-16.0) g/dl Hct (37.0-47.0) % MCV (80.0-100.0) fL MCH (25.0-34.0) pg MCHC (32.0-36.0) g/dL RDW Std Deviation (36.4-46.3) fL RDW Coeff of Derik (11.5-14.5) % Plt Count (130-400) K/uL MPV (9.4-12.4) fL Immature Gran % (Auto) % Neut % (Auto) % Lymph % (Auto) % Yancey % (Auto) % Eos % (Auto) % Baso % (Auto) % Neut # (Auto) (1.40-6.50) K/uL Lymph # (Auto) (1.2-3.4) K/uL Yancey # (Auto) (0.11-0.59) K/uL Eos # (Auto) (0-0.50) K/uL Baso # (Auto) (0-0.2) K/uL Immature Gran # (Auto) (0.01-0.20) K/uL PT (9.0-12.0) Seconds INR (0.9-1.1) Sodium (136-145) mmol/L Potassium (3.5-5.1) mmol/L Chloride (98-107) mmol/L Carbon Dioxide (21-32) mmol/L Anion Gap (3-11) BUN (6-23) mg/dl Creatinine (0.6-1.2) mg/dl Est Cr Clr Drug Dosing ml/min Est GFR ( Amer) ml/min Est GFR (Non-Af Amer) ml/min BUN/Creatinine Ratio (10-20) Glucose (70-99(Fasting)) mg/dl Calcium (8.5-10.1) mg/dl Total Bilirubin (0.2-1.0) mg/dl Direct Bilirubin (0-0.2) mg/dl AST (13-39) U/L ALT (7-52) U/L Alkaline Phosphatase (34-104) U/L C-Reactive Protein (0-0.5) mg/dl Total Protein (6.0-8.3) gm/dl Albumin (3.4-5.0) gm/dl Globulin (2.5-4.0) gm/dl Albumin/Globulin Ratio (0.9-2) Lipase (11-82) U/L TSH (0.300-4.500) uIu/ml Free T4 (0.61-1.60) ng/dl HCG, Quant 135722 mIU/ml Acetaminophen (10-30) ug/ml Adenovirus (PCR) Not Detected (NotDetected) Anaplasma Smear Babesia Smear B. pertussis DNA (PCR) Not Detected (NotDetected) B.parapertussis DNA PCR Not Detected (NotDetected) C. pneumoniae DNA (PCR) Not Detected (NotDetected) Coronavirus OC43 (PCR) Not Detected (NotDetected) Coronavirus HKU1 (PCR) Not Detected (NotDetected) Coronavirus 229E (PCR) Not Detected (NotDetected) SARS-CoV-2 (PCR) Not Detected (NotDetected) Coronavirus NL63 (PCR) Not Detected (NotDetected) Monoscreen Negative (Negative) Human Metapneumovir PCR Not Detected (NotDetected) Influenza Type A (PCR) Not Detected (NotDetected) Influenza Type B (PCR) Not Detected (NotDetected) M. pneumoniae (PCR) Not Detected (NotDetected) Parainfluenza 1 (PCR) Not Detected (NotDetected) Parainfluenza 2 (PCR) Not Detected (NotDetected) Parainfluenza 3 (PCR) Not Detected (NotDetected) Parainfluenza 4 (PCR) Not Detected (NotDetected) RSV (PCR) Not Detected (NotDetected) Entero/Rhino (PCR) Not Detected (NotDetected) 05/09/22 05/09/22 05/09/22 Range/Units 20:00 21:11 21:11 WBC (4.8-10.8) K/ul RBC (4.20-5.40) M/uL Hgb (12.0-16.0) g/dl Hct (37.0-47.0) % MCV (80.0-100.0) fL MCH (25.0-34.0) pg MCHC (32.0-36.0) g/dL RDW Std Deviation (36.4-46.3) fL RDW Coeff of Derik (11.5-14.5) % Plt Count (130-400) K/uL MPV (9.4-12.4) fL Immature Gran % (Auto) % Neut % (Auto) % Lymph % (Auto) % Yancey % (Auto) % Eos % (Auto) % Baso % (Auto) % Neut # (Auto) (1.40-6.50) K/uL Lymph # (Auto) (1.2-3.4) K/uL Yancey # (Auto) (0.11-0.59) K/uL Eos # (Auto) (0-0.50) K/uL Baso # (Auto) (0-0.2) K/uL Immature Gran # (Auto) (0.01-0.20) K/uL PT 11.9 (9.0-12.0) Seconds INR 1.1 (0.9-1.1) Sodium (136-145) mmol/L Potassium (3.5-5.1) mmol/L Chloride (98-107) mmol/L Carbon Dioxide (21-32) mmol/L Anion Gap (3-11) BUN (6-23) mg/dl Creatinine (0.6-1.2) mg/dl Est Cr Clr Drug Dosing ml/min Est GFR ( Amer) ml/min Est GFR (Non-Af Amer) ml/min BUN/Creatinine Ratio (10-20) Glucose (70-99(Fasting)) mg/dl Calcium (8.5-10.1) mg/dl Total Bilirubin (0.2-1.0) mg/dl Direct Bilirubin (0-0.2) mg/dl AST (13-39) U/L ALT (7-52) U/L Alkaline Phosphatase (34-104) U/L C-Reactive Protein (0-0.5) mg/dl Total Protein (6.0-8.3) gm/dl Albumin (3.4-5.0) gm/dl Globulin (2.5-4.0) gm/dl Albumin/Globulin Ratio (0.9-2) Lipase (11-82) U/L TSH 0.033 L (0.300-4.500) uIu/ml Free T4 1.95 H (0.61-1.60) ng/dl HCG, Quant mIU/ml Acetaminophen < 3 L (10-30) ug/ml Adenovirus (PCR) (NotDetected) Anaplasma Smear Babesia Smear B. pertussis DNA (PCR) (NotDetected) B.parapertussis DNA PCR (NotDetected) C. pneumoniae DNA (PCR) (NotDetected) Coronavirus OC43 (PCR) (NotDetected) Coronavirus HKU1 (PCR) (NotDetected) Coronavirus 229E (PCR) (NotDetected) SARS-CoV-2 (PCR) (NotDetected) Coronavirus NL63 (PCR) (NotDetected) Monoscreen (Negative) Human Metapneumovir PCR (NotDetected) Influenza Type A (PCR) (NotDetected) Influenza Type B (PCR) (NotDetected) M. pneumoniae (PCR) (NotDetected) Parainfluenza 1 (PCR) (NotDetected) Parainfluenza 2 (PCR) (NotDetected) Parainfluenza 3 (PCR) (NotDetected) Parainfluenza 4 (PCR) (NotDetected) RSV (PCR) (NotDetected) Entero/Rhino (PCR) (NotDetected) Administered Medications Potassium Chloride/Sodium Chloride (Normal Saline W/20 Meq Kcl) 20 meq in 1,000 mls @ 125 mls/hr IV .Q8H MANDI; Protocol Stop: 06/09/22 01:29 Last Infusion: 05/10/22 09:08 Dose: 125 mls/hr Documented By: Admin: 05/10/22 02:07 Dose: 125 mls/hr Documented By: LOC Promethazine HCl 25 mg/ Sodium (Chloride) 51 mls @ 204 mls/hr IV Q6H PRN PRN Reason: Nausea And Vomiting Stop: 06/09/22 01:33 Last Infusion: 05/10/22 02:42 Dose: 0 mls/hr Documented By: Admin: 05/10/22 02:07 Dose: 204 mls/hr Documented By: LOC Potassium Chloride/Sodium Chloride (Normal Saline W/20 Meq Kcl) 20 meq in 1,000 mls @ 125 mls/hr IV .Q8H MANDI; Protocol Stop: 06/09/22 08:59 Last Admin: 05/10/22 09:10 Dose: Not Given Documented By: ADELSO Labetalol HCl (Labetalol Hcl 100 Mg Tab) 100 mg PO BID MANDI Stop: 06/09/22 00:34 Last Admin: 05/10/22 09:07 Dose: 100 mg Documented By: Admin: 05/10/22 02:06 Dose: 100 mg Documented By: LOC Prenat Multivit/[place]/Iron/Folic Ac ( Vitamin 1 Tab) 1 tab PO DAILY MANDI Stop: 06/09/22 08:59 Last Admin: 05/10/22 09:07 Dose: 1 tab Documented By: B Discontinued Medications Sodium Chloride (Nss) 500 mls @ 999 mls/hr IV .Q31M STA Stop: 05/09/22 15:09 Last Infusion: 05/09/22 19:55 Dose: 0 mls/hr Documented By: Admin: 05/09/22 19:17 Dose: 999 mls/hr Documented By: FELY Sodium Chloride (Nss 1000ml) 1,000 mls @ 999 mls/hr IV .Q1H1M ONE Stop: 05/09/22 17:49 Last Infusion: 05/09/22 19:55 Dose: 0 mls/hr Documented By: Admin: 05/09/22 16:58 Dose: 999 mls/hr Documented By: BRIAN Lactated Ringer's (Lr) 1,000 mls @ 125 mls/hr IV .Q8H [facility] Stop: 06/09/22 01:29 Last Admin: 05/10/22 01:39 Dose: Not Given Documented By: LOC Ondansetron HCl (Ondansetron Inj 2 Mg/Ml 2 Ml Vial) Confirm Administered Dose 4 mg .ROUTE .STK-MED ONE Stop: 05/09/22 15:47 Last Admin: 05/09/22 15:52 Dose: 4 mg Documented By: HG Potassium Chloride (Potassium Chloride Crtab 20 Meq Tabcr) 40 meq PO NOW STA Stop: 05/09/22 20:30 Last Admin: 05/09/22 20:38 Dose: 40 meq Documented By: ADENIKE Imaging Data Radiologist's Impression: Gallbladder Ultrasound 05/09/22 17:59 ULTRASOUND RIGHT UPPER QUADRANT ABDOMEN CLINICAL HISTORY: Elevated hepatic transaminases. COMPARISON STUDY: Abdominal CT dated 12/17/2021. TECHNIQUE: Real-time, grayscale, and color flow sonography of the right upper quadrant of the abdomen was performed. Images are reviewed in the transverse and longitudinal planes. FINDINGS: Liver: The liver is normal in size and slightly heterogeneous in echotexture. There is no intrahepatic biliary ductal dilatation. The main portal vein is patent. Gallbladder: The gallbladder is normal in appearance. No shadowing gallstones are identified. There is no significant wall thickening or pericholecystic fluid. A sonographic Mccauley's sign is reportedly absent. The common bile duct measures up to 0.3 cm in diameter. Pancreas: Visualized portions of the pancreatic head and body are normal in appearance. The splenic vein is patent. Right kidney: Survey images of the right kidney demonstrate normal size and echotexture. There is no hydronephrosis. Ascites: None. IMPRESSION: No acute sonographic abnormality is seen in the right upper quadrant. No gallstones are identified. ACT 112: Negative or not required by law. Electronically signed by: James Brand M.D. 05/09/2022 7:12 PM Discharge Plan Visit Data Chief Complaint: Dehydration Stated Complaint: DEHYDRATED, 10 WKS PREG WITH TWINS ED Provider: Piotr Orozco Discharge Problem: Transaminitis Patient Disposition: Admitted As Inpatient Discharge Instructions Interventions: ED Discharge Assessment Last Done: 05/10/22 00:09
[2022-05-09 17:17] LABS: Albumin Globulin Ratio 1.2 (0.9-2); Albumin Level 4.7 gm/dl (3.4-5.0); BUN Creatinine Ratio 18.3 (10-20); Bilirubin,Total 6.9 mg/dl (0.2-1.0); C Reactive Protein 2.23 mg/dl (0-0.5); Calcium 10.2 mg/dl (8.5-10.1); Creatinine Clr Calc Pharmacy 109.5 ml/min; Est GFR (African American) 112.1 ml/min; Est GFR (Non-African American) 96.7 ml/min; Potassium 2.9 mmol/L (3.5-5.1); Total Protein 8.7 gm/dl (6.0-8.3)
--- NOTE | 2022-05-09 19:14 | Ultrasound Report ---
ULTRASOUND RIGHT UPPER QUADRANT ABDOMEN CLINICAL HISTORY: Elevated hepatic transaminases. COMPARISON STUDY: Abdominal CT dated 12/17/2021. TECHNIQUE: Real-time, grayscale, and color flow sonography of the right upper quadrant of the abdomen was performed. Images are reviewed in the transverse and longitudinal planes. FINDINGS: Liver: The liver is normal in size and slightly heterogeneous in echotexture. There is no intrahepati c biliary ductal dilatation. The main portal vein is patent. Gallbladder: The gallbladder is normal in appearance. No shadowing gallstones are identified. There i s no significant wall thickening or pericholecystic fluid. A sonographic Mccauley's sign is reportedly absent. The common bile duct measures up to 0.3 cm in diameter. Pancreas: Visualized portions of the pancreatic head and body are normal in appearance. The splenic v ein is patent. Right kidney: Survey images of the right kidney demonstrate normal size and echotexture. There is no hydronephrosis. Ascites: None. IMPRESSION: No acute sonographic abnormality is seen in the right upper quadrant. No gallstones are i dentified. ACT 112: Negative or not required by law. Electronically signed by: James Brand M.D. 05/09/2022 7:12 PM
[2022-05-09 19:17] LABS: Adenovirus PCR Not Detected (NotDetected); Bordetella parapertussis PCR Not Detected (NotDetected); Bordetella pertussis PCR Not Detected (NotDetected); Chlamydia pneumoniae PCR Not Detected (NotDetected); Coronavirus 229E PCR Not Detected (NotDetected); Coronavirus CoV-2 (COVID19)PCR Not Detected (NotDetected); Coronavirus HKU1 PCR Not Detected (NotDetected); Coronavirus NL63 PCR Not Detected (NotDetected); Coronavirus OC43PCR Not Detected (NotDetected); Human Metapneumovirus PCR Not Detected (NotDetected); Influenza A PCR Not Detected (NotDetected); Influenza B PCR Not Detected (NotDetected); Mycoplasma pneumoniae PCR Not Detected (NotDetected); Parainfluenza Virus 1 PCR Not Detected (NotDetected); Parainfluenza Virus 2 PCR Not Detected (NotDetected); Parainfluenza Virus 3 PCR Not Detected (NotDetected); Parainfluenza Virus 4 PCR Not Detected (NotDetected); Respiratory Syncytial VirusPCR Not Detected (NotDetected); Rhinovirus/Enterovirus PCR Not Detected (NotDetected)
[2022-05-09] MEDS ORDERED: POTASSIUM CHLORIDE CRTAB 20 MEQ TABCR PO STA (20:29)
[2022-05-09] MEDS ORDERED: ONDANSETRON INJ 2 MG/ML 2 ML VIAL IV PRN (20:37)
[2022-05-09 21:17] LABS: Thyroid Stimulating Hormone 0.033 uIu/ml (0.300-4.500)
[2022-05-09 21:33] LABS: INR 1.1 (0.9-1.1); Prothrombin Time 11.9 Seconds (9.0-12.0)
[2022-05-09 22:09] LABS: T4 Free Thyroxine 1.95 ng/dl (0.61-1.60)
[2022-05-09] MEDS ORDERED: ACETAMINOPHEN 325 MG TAB PO PRN (22:33)
[2022-05-09] MEDS ORDERED: POLYETHYLENE (MIRALAX) 17 GM PACK PO PRN (22:33)
[2022-05-09] MEDS ORDERED: MAGNESIUM HYDROXIDE SUSP 30 ML UDC PO PRN (22:33)
[2022-05-10 00:11] LABS: Appearance Urine Cloudy (Clear); Color Urine Orange; Specific Gravity Urine 1.024 (1.000-1.030)
--- NOTE | 2022-05-10 00:13 | History & Physical Report ---
Date of Service May 10, 2022 Assessment & Plan (1) Hyperemesis gravidarum: (2) Cyclic vomiting syndrome: (3) Twin in first trimester: Plan: 27-year-old G1, P0 at 8+ weeks with twins per ultrasound here on April 29, chorionicity was undetermined, presenting with persistent nausea unable to tolerate p.o. intake and dehydration, Elevated blood pressures found in the incidentally during today's admission, asymptomatic, otherwise stable Acutely elevated liver enzymes, with normal levels documented 4 days ago, Plan to admit, monitor, IV fluids, IV antiemetics, increase p.o. intake slowly as patient tolerates, GI was consulted over the phone and recommended lab work and they will follow-up in the morning for their recommendations, Ultrasound for chorionicity of twin , Consult hospitalist for hypertension, All questions were answered. (4) Elevated liver enzymes: (5) Cannabinoid hyperemesis syndrome: History of Present Illness Chief Complaint: Dehydration Primary Care Provider: Anahy Galloway DO Patient is a 27-year-old G1, P0 with unknown LMP, at 8+ weeks of gestation with twins per US report here on 04/29. She has not been seen by [facility] yet. She has been feeling nauseous and unable to tolerate solid food. She can keep small amount of water and liquids but not enough to hydrate herself. She feels dehydrated, tired and thirsty. She has been coming to the ER for IV fluid hydration and today she was found to have abnormally elevated liver enzymes including ALT and AST and recommended to be admitted under [employer] and consult GI for further recommendations. She denies any history of liver disorders, hepatitis, IV drug use or STDs. She has been using marijuana in the past and stopped about 2 months ago when she found out she was . She has history of cyclic vomiting syndrome from before . This was unplanned and she was on control pills actually, Apri daily. She has a history of anxiety but has not been on medications. She denies any other medical problems. She denies abdominal pain, diarrhea, fever chills, vaginal bleeding or discharge. She has not been able to work due to ongoing dehydration and fatigue. Allergies Allergy/AdvReac Type Severity Reaction Status Date / Time No Known Allergies Allergy Verified 05/09/22 18:10 Home Medications Medication Instructions Recorded Confirmed Type vit no.95-ferrous 1 tab PO DAILY 05/05/22 05/09/22 History fumarate 28 mg-folic acid 800 mcg tablet () Patient History Medical History Anxiety Bipolar disorder, unspecified BMI 45.0-49.9, adult Cyclic vomiting syndrome Depression GERD (gastroesophageal reflux disease) History of hemoptysis Morbid obesity Oral contraceptive use Panic attacks Surgical History History of facial surgery History of tonsillectomy and adenoidectomy Family History Sister Anxiety Depression Autism Father Hypertension Anxiety Mother Breast cancer, Onset Age: 55 Anxiety Denies family history of Ovarian cancer Prostate cancer Myocardial infarction Colorectal cancer Social History Smoking Status: Former smoker Tobacco Type: E-cigarettes / Vaping Second Hand Exposure: No; Hx Alcohol Use: No Hx Substance Use: Yes Last Used Substance: Days (ago) Last Used Substance Other:: occasionally Substance Use Type Other:: medical, vapor Preferred Language: Surinamese Communication Ability: Effective Visual Impairment: No Limitations Hearing Ability: Normal 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 As per HPI Review of Systems as per Subjective / HPI Her mucosa is moist, skin has good turgor Physical Exam Gastrointestinal (Abdomen): normal bowel sounds, soft, nontender, no hepatosplenomegaly Results & Data ([facility]) Vital Signs (Past 12 Hours) Vital Signs Temp Pulse Pulse Resp BP BP Pulse Ox 05/09/22 23:09 107 H 18 143/108 H 98 05/09/22 23:01 36.9 C 113 H 16 100 05/09/22 22:00 84 18 148/109 H 96 05/09/22 21:00 99 H 16 164/108 H 99 05/09/22 20:30 81 14 166/108 H 97 05/09/22 19:31 87 18 136/96 97 05/09/22 18:56 96 H 18 125/97 96 05/09/22 18:09 102 H 18 143/99 H 98 05/09/22 17:41 93 H 18 144/108 H 98 05/09/22 14:41 143/111 H 05/09/22 14:25 36.8 C 111 H 20 96 O2 Del Method 05/09/22 23:09 Room Air 05/09/22 23:01 05/09/22 22:00 05/09/22 21:00 05/09/22 20:30 05/09/22 19:31 05/09/22 18:56 Room Air 05/09/22 18:09 Room Air 05/09/22 17:41 Room Air 05/09/22 14:41 05/09/22 14:25 Room Air Diagnostic Findings [facility], [place] [phone] Ultrasound Report ULTRASOUND RIGHT UPPER QUADRANT ABDOMEN CLINICAL HISTORY: Elevated hepatic transaminases. COMPARISON STUDY: Abdominal CT dated 12/17/2021. TECHNIQUE: Real-time, grayscale, and color flow sonography of the right upper quadrant of the abdomen was performed. Images are reviewed in the transverse and longitudinal planes. FINDINGS: Liver: The liver is normal in size and slightly heterogeneous in echotexture. There is no intrahepatic biliary ductal dilatation. The main portal vein is patent. Gallbladder: The gallbladder is normal in appearance. No shadowing gallstones are identified. There is no significant wall thickening or pericholecystic fluid. A sonographic Mccauley's sign is reportedly absent. The common bile duct measures up to 0.3 cm in diameter. Pancreas: Visualized portions of the pancreatic head and body are normal in appearance. The splenic vein is patent. Right kidney: Survey images of the right kidney demonstrate normal size and echotexture. There is no hydronephrosis. Ascites: None. IMPRESSION: No acute sonographic abnormality is seen in the right upper quadrant. No gallstones are identified. OB US pending
[2022-05-10 00:14] LABS: Epithelial Cell Urine >30 /lpf (0-5); Mucus Urine Present (None Prsent)
[2022-05-10 00:16] LABS: Bacteria Urine 2+ (Negative); RBC Urine 0-4 /hpf (0-4)
[2022-05-10] MEDS ORDERED: METOCLOPRAMIDE HCL 10 MG TABLET PO PRN (00:32)
[2022-05-10] MEDS ORDERED: PROMETHAZINE HCL 25 MG/20 ML UDP PO PRN (01:30)
[2022-05-10] MEDS ORDERED: LACTATED RINGER'S 1,000 ML IV SCH (01:30)
[2022-05-10] MEDS ORDERED: PROMETHAZINE HCL 25 MG TAB PO PRN (01:30)
[2022-05-10] MEDS ORDERED: PROMETHAZINE HCL 25 MG in SODIUM CHLORIDE 0.9% 50 ML IV PRN (01:34)
[2022-05-10 01:38] LABS: Amphetamines+Metham, Urine Neg (Neg); Barbiturates, Urine Neg (Neg); Benzodiazepine, Urine Pos (Neg); Cocaine, Urine Neg (Neg); MDMA (Ecstacy), Urine Neg (Neg); Methadone, Urine Neg (Neg); Opiate, Urine Neg (Neg); Phencyclidine, Urine Neg (Neg)
[2022-05-10] MEDS: LABETALOL HCL 100 MG TAB PO SCH ×3 (02:06→20:18)
[2022-05-10] MEDS: NSS + 20MEQ KCL 20 MEQ/1,000 ML BAG IV SCH ×4 (02:07→19:19)
[2022-05-10 06:56] LABS: Albumin Globulin Ratio 1.2 (0.9-2); Albumin Level 3.6 gm/dl (3.4-5.0); BUN Creatinine Ratio 21.1 (10-20); Bilirubin,Total 6.3 mg/dl (0.2-1.0); Calcium 8.8 mg/dl (8.5-10.1); Creatinine Clr Calc Pharmacy 159.2 ml/min; Est GFR (African American) 145.2 ml/min; Est GFR (Non-African American) 125.3 ml/min; Globulin 2.9 gm/dl (2.5-4.0); Potassium 2.9 mmol/L (3.5-5.1); Total Protein 6.5 gm/dl (6.0-8.3)
--- NOTE | 2022-05-10 07:13 | Ultrasound Report ---
US duplex portal hepatic veins CLINICAL HISTORY: Transaminitis, eval for thrombus COMPARISON STUDY: CT of the abdomen and pelvis January 16, 2022. TECHNIQUE: Color and duplex Doppler sonography of the major hepatic vessels was performed. FINDINGS: The main, right and left portal veins are patent with appropriately directed flow. Splenic vein is not well visualized due to overlying bowel gas. The middle, left and right hepatic veins are patent with appropriate phasicity. Visualized portions of the IVC are patent. IMPRESSION: Patent major hepatic vessels with appropriately directed flow. ACT 112: Negative or not required by law. Electronically signed by: Perry Mejia M.D. 05/10/2022 7:11 AM
[2022-05-10 08:04] LABS: Basophils # (auto) 0.01 K/uL (0-0.2); Basophils % (auto) 0.1 %; Eosinophils # (auto) 0.03 K/uL (0-0.50); Eosinophils % (auto) 0.2 %; Hematocrit (blood only) 41.5 % (37.0-47.0); Hemoglobin 14.7 g/dl (12.0-16.0); Immature Granulocytes # (auto) 0.05 K/uL (0.01-0.20); Immature Granulocytes % (auto) 0.4 %; Lymphocytes # (auto) 2.14 K/uL (1.2-3.4); Lymphocytes % (auto) 15.5 %; Mean Corpuscular Hemoglobin 29.8 pg (25.0-34.0); Mean Corpuscular Hgb Conc 35.4 g/dL (32.0-36.0); Mean Platelet Volume 10.6 fL (9.4-12.4); Monocytes # (auto) 1.26 K/uL (0.11-0.59); Monocytes % (auto) 9.1 %; Neutrophils # (auto) 10.36 K/uL (1.40-6.50); Neutrophils % (auto) 74.7 %; Platelet Count 343 K/uL (130-400); RDW Coefficient of Variation 12.3 % (11.5-14.5); RDW Standard Deviation 37.1 fL (36.4-46.3); Red Blood Count 4.94 M/uL (4.20-5.40); White Blood Count 13.85 K/ul (4.8-10.8)
--- NOTE | 2022-05-10 08:53 | Ultrasound Report ---
US OB <= 14 weeks fetus HISTORY: 27 years-old Female TWIN follow-up study in a patient with twin gestation COMPARISON: April 29, 2022 TECHNIQUE: Multiple real-time sonographic images of the deep pelvic structures were obtained transabd ominally assessing grayscale appearance, color and spectral flow with M-mode analysis FINDINGS: Anteflexed uterus. Dichorionic diamniotic twin gestation redemonstrated. 1.4 x 0.9 x 2.9 cm subchorio roland hematoma, previously 2.2 x 1.6 x 2.1 cm. Additional smaller subacute chronic hematomas are also p resent. Baby A is located inferiorly within the lower uterine segment on the left and demonstrates crown-rump length of 2.55 cm, 9 weeks 0 days with heart rate of 161 bpm. Gestational sac measures 3.42 cm . Baby B is located superiorly near the uterine fundus on the right and demonstrates crown-rump length of 2.67 cm, 8 weeks 5 days with heart rate of 167 bpm. Gestational sac measures 3.02 cm. Closed cervix. Right ovary measures 3.4 x 2.2 x 2.8 cm. 1.8 cm right ovarian corpus luteum. Left ovar y measures 2.1 x 1.1 x 2.5 cm. Arterial inflow and venous outflow is documented bilaterally. IMPRESSION: 1. Living dichorionic diamniotic twin gestations. 2. Small bilateral subchorionic hemorrhages appear stable to mildly decreased in size from prior. 3. Closed cervix. ACT 112: Negative or not required by law. The above report was generated using voice recognition software. It may contain grammatical, syntax o r spelling errors. Electronically signed by: Lamin Andrade M.D. 05/10/2022 8:51 AM
[2022-05-10] MEDS ORDERED: PRENATAL VITAMIN 1 TAB PO SCH (09:00)
[2022-05-10] MEDS: PRENATAL VITAMIN 1 TAB PO SCH (09:07)
--- NOTE | 2022-05-10 09:29 | Gastrointestinal Consultation ---
Date of Consultation May 10, 2022 Assessment & Plan (1) Elevated liver enzymes: (2) Twin in first trimester: Plan Given the work up to this point, suspect viral etiology. She does have fatty liver, although does not meet [place] criteria for AFLP or HELLP. -Await viral hepatitis serologies, ceruloplasmin, and autoantibody testing. -Add CMV, IgG, and HSV serologies. -CBC, hepatic panel and PT/INR in the am. If coagulopathy or further decompensation, would transfer to tertiary center. -Supportive care per primary team. Thank you for allowing us to participate in the care of this patient. If you have any questions or concerns, please do not hesitate to contact us. Supervising Physician Co-Signing Physician Notes I personally evaluated the patient and agree with the findings as documented by JEOVANY Gutierrez await viral hepatitis studies, supportive care. suspect a viral etiology to her hepatitis at this time. History of Present Illness Reason for Consultation: Transaminitis, Requesting Physician: Dr. Orozco Attending Physician: Duane Coleman MD History of Present Illness Patient is a 27 y.o. female at approximately 7 weeks gestation in her first with twins admitted after 4 days of persistent nausea with vomiting. States she has not eaten solid food for approximately 6 days. Denies any headaches, abdominal pain, or pruritus. Endorses mild constipation which was alleviated by fiber gummies [id number]. No acholic stools but dark orange urine which began yesterday. Denies any fevers or chills, cough, or rhinorrhea. Her blood pressure has been intermittently elevated at the highest yesterday at 166/108. Last night BP was 158/99. Blood pressure is normal now. Denies taking any medications or other supplements [id number]. No family history of chronic liver disease or gallbladder problems. Denies any alcohol consumption or history of IV drug use. She did have an upper endoscopy by Dr. Tavarez on which demonstrated esophagitis and gastritis. No varices. Labs on arrival include mild leukocytosis of 13.85, normal H&H 14.7/41.5, platelets 343, TB 6.9, DB 2.7, AST 545, AKT 1481 and RUQ ultrasound with suspected fatty change but no biliary ductal dilation or gall stones/sludge or inflammatory change. Work up additionally includes hepatitis and EBV viral studies, ceruloplasmin and autoantibodies which are pending. Monoscreen negative. COVID-19 and URI viral testing is negative. Normal portal duplex. Allergies Allergy/AdvReac Type Severity Reaction Status Date / Time No Known Allergies Allergy Verified 05/09/22 18:10 Home Medications Medication Instructions Recorded Confirmed Type vit no.95-ferrous 1 tab PO DAILY 05/05/22 05/09/22 History fumarate 28 mg-folic acid 800 mcg tablet () Patient History Medical History Anxiety Bipolar disorder, unspecified BMI 45.0-49.9, adult Cyclic vomiting syndrome Depression GERD (gastroesophageal reflux disease) History of hemoptysis Morbid obesity Oral contraceptive use Panic attacks Surgical History History of facial surgery History of tonsillectomy and adenoidectomy Family History Sister Anxiety Depression Autism Father Hypertension Anxiety Mother Breast cancer, Onset Age: 55 Anxiety Denies family history of Ovarian cancer Prostate cancer Myocardial infarction Colorectal cancer Social History Smoking Status: Former smoker Tobacco Type: E-cigarettes / Vaping Second Hand Exposure: Yes; Hx Alcohol Use: No Hx Substance Use: Yes (medical card) Last Used Substance: Days (ago) Last Used Substance Other:: occasionally Substance Use Type Other:: states has not used since positive test Preferred Language: Indonesian Communication Ability: Effective Visual Impairment: No Limitations Hearing Ability: Normal Home Maker Required: No Beliefs That Will Affect Care: None marital status: Single Current Living Situation: Significant Other Current Living Situation Comment: Fiance current occupational status: employed current occupation: [employer] [place] How many Children do You have: 0 Other Information That Helps Us Care for You: No Feels Safe at Home: Yes Safety Concerns: Feels Safe At This Time Diet Comment: regular caffeine: No during the past year weight has: decreased > 10 lbs Dental Care, Regularly: Yes Physical Activity Frequency: Other Seatbelt Use: always Sunscreen Use: Yes Assistive Devices: Contacts Review of Systems Review of Systems: All systems reviewed & are unremarkable except as noted in HPI & below Physical Exam Constitutional: WD/WN, vitals as above Eyes: + scleral abnormality (bilateral icterus) and EOM intact bilaterally Neck: normal appearance Respiratory: normal respiratory effort, lungs clear to auscultation Cardiovascular: Rate/Rhythm: regular rate and regular rhythm Heart Sounds: no gallop and no murmur Gastrointestinal (Abdomen): normal bowel sounds, soft, nontender, no hepatosplenomegaly Inspection/Auscultation: abdomen not distended Musculoskeletal: Extremities: no cyanosis no lower extremity edema Skin: no rashes, warm and dry Neurologic: moves all extremities Psychiatric: A+Ox3, euthymic affect Results & Data ([facility]) Vital Signs (Past 12 Hours) Vital Signs Temp Pulse Pulse Pulse Resp BP BP 05/10/22 07:50 37 C 91 H 16 105/73 05/10/22 03:10 105 H 05/10/22 00:51 36.8 C 103 H 18 05/10/22 00:09 93 H 18 163/109 H 05/09/22 23:09 107 H 18 143/108 H 05/09/22 23:01 36.9 C 113 H 16 05/09/22 22:00 84 18 148/109 H BP Pulse Ox O2 Del Method 05/10/22 07:50 97 Room Air 05/10/22 03:10 153/95 H 05/10/22 00:51 158/99 H 99 Room Air 05/10/22 00:09 99 05/09/22 23:09 98 Room Air 05/09/22 23:01 100 05/09/22 22:00 96 Diagnostic Findings Laboratory Results WBC 13.85 K/ul (4.8-10.8) H 05/10/22 07:26 RBC 4.94 M/uL (4.20-5.40) 05/10/22 07:26 Hgb 14.7 g/dl (12.0-16.0) D 05/10/22 07:26 Hct 41.5 % (37.0-47.0) 05/10/22 07:26 MCV 84.0 fL (80.0-100.0) 05/10/22 07:26 MCH 29.8 pg (25.0-34.0) 05/10/22 07:26 MCHC 35.4 g/dL (32.0-36.0) 05/10/22 07:26 RDW Std Deviation 37.1 fL (36.4-46.3) 05/10/22 07: RDW Coeff of Derik 12.3 % (11.5-14.5) 05/10/22 07:26 Plt Count 343 K/uL (130-400) 05/10/22 07:26 MPV 10.6 fL (9.4-12.4) 05/10/22 07:26 Immature Gran % (Auto) 0.4 % 05/10/22 07:26 Neut % (Auto) 74.7 % 05/10/22 07:26 Lymph % (Auto) 15.5 % 05/10/22 07:26 Bacon % (Auto) 9.1 % 05/10/22 07:26 Eos % (Auto) 0.2 % 05/10/22 07:26 Baso % (Auto) 0.1 % 05/10/22 07:26 Neut # (Auto) 10.36 K/uL (1.40-6.50) H 05/10/22 07:26 Lymph # (Auto) 2.14 K/uL (1.2-3.4) 05/10/22 07:26 Bacon # (Auto) 1.26 K/uL (0.11-0.59) H 05/10/22 07:26 Eos # (Auto) 0.03 K/uL (0-0.50) 05/10/22 07:26 Baso # (Auto) 0.01 K/uL (0-0.2) 05/10/22 07:26 Immature Gran # (Auto) 0.05 K/uL (0.01-0.20) 05/10/22 07:26 Absolute Nucleated RBC Cancelled 05/10/22 05:47 Nucleated RBC % (auto) Cancelled 05/10/22 05:47 Neutrophils % (Manual) Cancelled 05/10/22 05:47 Band Neutrophils % Cancelled 05/10/22 05:47 Lymphocytes % (Manual) Cancelled 05/10/22 05:47 Prolymphocyte % Cancelled 05/10/22 05:47 Reactive Lymphs % (Man) Cancelled 05/10/22 05:47 Monocytes % (Manual) Cancelled 05/10/22 05:47 Eosinophils % (Manual) Cancelled 05/10/22 05:47 Basophils % (Manual) Cancelled 05/10/22 05:47 Metamyelocytes % (Man) Cancelled 05/10/22 05:47 Myelocytes % (Man) Cancelled 05/10/22 05:47 Promyelocytes % (Man) Cancelled 05/10/22 05:47 Blast Cells % (Manual) Cancelled 05/10/22 05:47 Plasma Cell % (Manual) Cancelled 05/10/22 05:47 Other Cells % Cancelled 05/10/22 05:47 Nucleated RBC % Cancelled 05/10/22 05:47 Neutrophils # (Manual) Cancelled 05/10/22 05:47 Band Neutrophils # Cancelled 05/10/22 05:47 Total Absolute Neuts Cancelled 05/10/22 05:47 Lymphocytes # (Manual) Cancelled 05/10/22 05:47 Prolymphocyte # Cancelled 05/10/22 05:47 Reactive Lymphs # Cancelled 05/10/22 05:47 Total Abs Lymphocytes Cancelled 05/10/22 05:47 Monocytes # (Manual) Cancelled 05/10/22 05:47 Eosinophils # (Manual) Cancelled 05/10/22 05:47 Basophils # (Manual) Cancelled 05/10/22 05:47 Metamyelocytes # (Man) Cancelled 05/10/22 05:47 Myelocytes # (Manual) Cancelled 05/10/22 05:47 Promyelocytes # (Man) Cancelled 05/10/22 05:47 Blast Cells # (Man) Cancelled 05/10/22 05:47 Plasma Cell # (Manual) Cancelled 05/10/22 05:47 Other Cells # Cancelled 05/10/22 05:47 Nucleated RBCs # (Man) Cancelled 05/10/22 05:47 Hypersegmented Neuts Cancelled 05/10/22 05:47 Hyposegmented Neuts Cancelled 05/10/22 05:47 Hypogranular Neuts Cancelled 05/10/22 05:47 Large Granular Lymphs Cancelled 05/10/22 05:47 # Lrg Granular Lymphs Cancelled 05/10/22 05:47 Hairy Cells Cancelled 05/10/22 05:47 Smudge Cells Cancelled 05/10/22 05:47 Toxic Granulation Cancelled 05/10/22 05:47 Toxic Vacuolation Cancelled 05/10/22 05:47 Dohle Bodies Cancelled 05/10/22 05:47 Ilir Rods Cancelled 05/10/22 05:47 Platelet Estimate Cancelled 05/10/22 05:47 Hypogranular Platelets Cancelled 05/10/22 05:47 Clumped Platelets Cancelled 05/10/22 05:47 Giant Platelets Cancelled 05/10/22 05:47 Platelet Satelliting Cancelled 05/10/22 05:47 RBC Morphology Cancelled 05/10/22 05:47 Polychromasia Cancelled 05/10/22 05:47 Hypochromasia Cancelled 05/10/22 05:47 Poikilocytosis Cancelled 05/10/22 05:47 Basophilic Stippling Cancelled 05/10/22 05:47 Anisocytosis Cancelled 05/10/22 05:47 Microcytosis Cancelled 05/10/22 05:47 Macrocytosis Cancelled 05/10/22 05:47 Spherocytes Cancelled 05/10/22 05:47 Pappenheimer Bodies Cancelled 05/10/22 05:47 Sickle Cells Cancelled 05/10/22 05:47 Target Cells Cancelled 05/10/22 05:47 Tear Drop Cells Cancelled 05/10/22 05:47 Ovalocytes Cancelled 05/10/22 05:47 Stomatocytes Cancelled 05/10/22 05:47 [place] Bodies Cancelled 05/10/22 05:47 Echinocytes Cancelled 05/10/22 05:47 Acanthocytes (Spur) Cancelled 05/10/22 05:47 Rouleaux Cancelled 05/10/22 05:47 RBC Agglutinates Cancelled 05/10/22 05:47 Schistocytes Cancelled 05/10/22 05:47 Sezary Cell Cancelled 05/10/22 05:47 PT 11.9 Seconds (9.0-12.0) 05/09/22 21:11 INR 1.1 (0.9-1.1) 05/09/22 21:11 Sodium 140 mmol/L (136-145) 05/10/22 05:47 Potassium 2.9 mmol/L (3.5-5.1) L 05/10/22 05:47 Chloride 101 mmol/L (98-107) 05/10/22 05:47 Carbon Dioxide 29 mmol/L (21-32) 05/10/22 05:47 Anion Gap 10 (3-11) 05/10/22 05:47 BUN 12 mg/dl (6-23) 05/10/22 05:47 Creatinine 0.57 mg/dl (0.6-1.2) L 05/10/22 05:47 Est Cr Clr Drug Dosing 159.2 ml/min 05/10/22 05:47 Est GFR ( Amer) 145.2 ml/min 05/10/22 05:47 Est GFR (Non-Af Amer) 125.3 ml/min 05/10/22 05:47 BUN/Creatinine Ratio 21.1 (10-20) H 05/10/22 05:47 Glucose 94 mg/dl (70-99(Fasting)) 05/10/22 05:47 Calcium 8.8 mg/dl (8.5-10.1) 05/10/22 05:47 Total Bilirubin 6.3 mg/dl (0.2-1.0) H 05/10/22 05:47 Direct Bilirubin 2.7 mg/dl (0-0.2) H 05/09/22 14:34 AST 419 U/L (13-39) H 05/10/22 05:47 ALT 1264 U/L (7-52) H 05/10/22 05:47 Alkaline Phosphatase 49 U/L (34-104) 05/10/22 05:47 C-Reactive Protein 2.23 mg/dl (0-0.5) H 05/09/22 14:34 Total Protein 6.5 gm/dl (6.0-8.3) D 05/10/22 05:47 Albumin 3.6 gm/dl (3.4-5.0) 05/10/22 05:47 Globulin 2.9 gm/dl (2.5-4.0) 05/10/22 05:47 Albumin/Globulin Ratio 1.2 (0.9-2) 05/10/22 05:47 Lipase 18 U/L (11-82) 05/09/22 14:34 TSH 0.033 uIu/ml (0.300-4.500) L 05/09/22 20:00 Free T4 1.95 ng/dl (0.61-1.60) H 05/09/22 20:00 HCG, Quant [id number] mIU/ml 05/09/22 17:37 Urine Color [place] 05/09/22 23:19 Urine Appearance Cloudy (Clear) A 05/09/22 23:19 Urine pH (4.5-7.5) 05/09/22 23:19 Ur Specific [place] 1.024 (1.000-1.030) 05/09/22 23:19 Urine Protein (Negative) 05/09/22 23:19 Urine Glucose (UA) (Negative) 05/09/22 23:19 Urine Ketones (Negative) 05/09/22 23:19 Urine Blood (Negative) 05/09/22 23:19 Urine Nitrite (Negative) 05/09/22 23:19 Urine Bilirubin (Negative) 05/09/22 23:19 Urine Urobilinogen (Negative) 05/09/22 23:19 Ur Leukocyte Esterase (Negative) 05/09/22 23:19 Urine RBC 0-4 /hpf (0-4) 05/09/22 23:19 Urine WBC 5-10 /hpf (0-5) H 05/09/22 23:19 Ur Epithelial Cells >30 /lpf (0-5) H 05/09/22 23:19 Urine Bacteria 2+ (Negative) H 05/09/22 23:19 Urine Mucus Present (None Prsent) A 05/09/22 23:19 Urine Opiates Screen Neg (Neg) 05/10/22 00:48 Ur Methadone, Qual Neg (Neg) 05/10/22 00:48 Acetaminophen < 3 ug/ml (10-30) L 05/09/22 21:11 Urine Barbiturates Neg (Neg) 05/10/22 00:48 Ur Phencyclidine (PCP) Neg (Neg) 05/10/22 00:48 U Amphetamin/Meth Scrn Neg (Neg) 05/10/22 00:48 MDMA (Ecstasy) Screen Neg (Neg) 05/10/22 00:48 U Benzodiazepines Scrn Pos (Neg) H 05/10/22 00:48 Ur Cocaine Metabolite Neg (Neg) 05/10/22 00:48 U Marijuana (THC) Screen Pos (Neg) H 05/10/22 00:48 Adenovirus (PCR) Not Detected (NotDetected) 05/09/22 17:16 Anaplasma Smear See Comment 05/09/22 14:39 Babesia Smear See Comment 05/09/22 14:39 B. pertussis DNA (PCR) Not Detected (NotDetected) 05/09/22 17:16 B.parapertussis DNA PCR Not Detected (NotDetected) 05/09/22 17:16 C. pneumoniae DNA (PCR) Not Detected (NotDetected) 05/09/22 17:16 Coronavirus OC43 (PCR) Not Detected (NotDetected) 05/09/22 17:16 Coronavirus HKU1 (PCR) Not Detected (NotDetected) 05/09/22 17:16 Coronavirus 229E (PCR) Not Detected (NotDetected) 05/09/22 17:16 SARS-CoV-2 (PCR) Not Detected (NotDetected) 05/09/22 17:16 Coronavirus NL63 (PCR) Not Detected (NotDetected) 05/09/22 17:16 Monoscreen Negative (Negative) 05/09/22 20:00 Human Metapneumovir PCR Not Detected (NotDetected) 05/09/22 17:16 Influenza Type A (PCR) Not Detected (NotDetected) 05/09/22 17:16 Influenza Type B (PCR) Not Detected (NotDetected) 05/09/22 17:16 M. pneumoniae (PCR) Not Detected (NotDetected) 05/09/22 17:16 Parainfluenza 1 (PCR) Not Detected (NotDetected) 05/09/22 17:16 Parainfluenza 2 (PCR) Not Detected (NotDetected) 05/09/22 17:16 Parainfluenza 3 (PCR) Not Detected (NotDetected) 05/09/22 17:16 Parainfluenza 4 (PCR) Not Detected (NotDetected) 05/09/22 17:16 RSV (PCR) Not Detected (NotDetected) 05/09/22 17:16 Entero/Rhino (PCR) Not Detected (NotDetected) 05/09/22 17:16 Blood Parasites ID Cancelled 05/10/22 05:47 Impressions Gallbladder Ultrasound 05/09/22 17:59 ULTRASOUND RIGHT UPPER QUADRANT ABDOMEN CLINICAL HISTORY: Elevated hepatic transaminases. COMPARISON STUDY: Abdominal CT dated 12/17/2021. TECHNIQUE: Real-time, grayscale, and color flow sonography of the right upper quadrant of the abdomen was performed. Images are reviewed in the transverse and longitudinal planes. FINDINGS: Liver: The liver is normal in size and slightly heterogeneous in echotexture. There is no intrahepatic biliary ductal dilatation. The main portal vein is patent. Gallbladder: The gallbladder is normal in appearance. No shadowing gallstones are identified. There is no significant wall thickening or pericholecystic fluid. A sonographic Mcaculey's sign is reportedly absent. The common bile duct measures up to 0.3 cm in diameter. Pancreas: Visualized portions of the pancreatic head and body are normal in appearance. The splenic vein is patent. Right kidney: Survey images of the right kidney demonstrate normal size and echotexture. There is no hydronephrosis. Ascites: None. IMPRESSION: No acute sonographic abnormality is seen in the right upper quadrant. No gallstones are identified. ACT 112: Negative or not required by law. Electronically signed by: James Brand M.D. 05/09/2022 7:12 PM Ultrasound 05/10/22 00:00 US OB <= 14 weeks fetus HISTORY: 27 years-old Female TWIN follow-up study in a patient with twin gestation COMPARISON: April 29, 2022 TECHNIQUE: Multiple real-time sonographic images of the deep pelvic structures were obtained transabdominally assessing grayscale appearance, color and spectral flow with M-mode analysis FINDINGS: Anteflexed uterus. Dichorionic diamniotic twin gestation redemonstrated. 1.4 x 0.9 x 2.9 cm subchorionic hematoma, previously 2.2 x 1.6 x 2.1 cm. Additional smaller subacute chronic hematomas are also present. Baby A is located inferiorly within the lower uterine segment on the left and demonstrates crown-rump length of 2.55 cm, 9 weeks 0 days with heart rate of 161 bpm. Gestational sac measures 3.42 cm. Baby B is located superiorly near the uterine fundus on the right and demonstrates crown-rump length of 2.67 cm, 8 weeks 5 days with heart rate of 167 bpm. Gestational sac measures 3.02 cm. Closed cervix. Right ovary measures 3.4 x 2.2 x 2.8 cm. 1.8 cm right ovarian corpus luteum. Left ovary measures 2.1 x 1.1 x 2.5 cm. Arterial inflow and venous outflow is documented bilaterally. IMPRESSION: 1. Living dichorionic diamniotic twin gestations. 2. Small bilateral subchorionic hemorrhages appear stable to mildly decreased in size from prior. 3. Closed cervix. ACT 112: Negative or not required by law. The above report was generated using voice recognition software. It may contain grammatical, syntax or spelling errors. Electronically signed by: Lamin Andrade M.D. 05/10/2022 8:51 AM Portal Vein US 05/10/22 00:00 US duplex portal hepatic veins CLINICAL HISTORY: Transaminitis, eval for thrombus COMPARISON STUDY: CT of the abdomen and pelvis January 16, 2022. TECHNIQUE: Color and duplex Doppler sonography of the major hepatic vessels was performed. FINDINGS: The main, right and left portal veins are patent with appropriately directed flow. Splenic vein is not well visualized due to overlying bowel gas. The middle, left and right hepatic veins are patent with appropriate phasicity. Visualized portions of the IVC are patent. IMPRESSION: Patent major hepatic vessels with appropriately directed flow. ACT 112: Negative or not required by law. Electronically signed by: Perry Mejia M.D. 05/10/2022 7:11 AM PG Care Time/CCT Total # of Minutes Spent Total Time Spent with Patient: Total time spent is greater than 50% in coordination of care (as documented) at patient's floor/unit and/or counseling patient: 56 Coding Level of Care Code INP/OBS CONSULT LVL 3, 45 MIN Diagnoses Elevated liver enzymes R74.8 Twin in first trimester O30.001
--- NOTE | 2022-05-10 10:07 | Obstetrical Progress Note ---
Date of Service May 10, 2022 Assessment & Plan (1) Twin in first trimester: GI consult note appreciated labs pending (2) Elevated liver enzymes: (3) Hyperemesis gravidarum: (4) Cannabinoid hyperemesis syndrome: Subjective Ambulation: ambulating normally Voiding: no voiding problems Diet Tolerance:: nausea/vomiting Current Pain Level(1-10): 0 no vomiting so far this Am Physical Exam Constitutional WD/WN, vitals as above Results & Data ([place]) Vital Signs (Past 12 Hours) Vital Signs Temp Pulse Pulse Pulse Resp BP BP 05/10/22 07:50 37 C 91 H 16 105/73 05/10/22 03:10 105 H 05/10/22 00:51 36.8 C 103 H 18 05/10/22 00:09 93 H 18 163/109 H 05/09/22 23:09 107 H 18 143/108 H 05/09/22 23:01 36.9 C 113 H 16 BP Pulse Ox O2 Del Method 05/10/22 07:50 97 Room Air 05/10/22 03:10 153/95 H 05/10/22 00:51 158/99 H 99 Room Air 05/10/22 00:09 99 05/09/22 23:09 98 Room Air 05/09/22 23:01 100 Laboratory Results Laboratory Results - last 48 hr 05/09/22 05/09/22 05/09/22 14:34 14:34 14:39 WBC 19.71 H RBC 6.14 H Hgb 18.8 H Hct 49.7 H MCV 80.9 MCH 30.6 MCHC 37.8 H RDW Std Deviation 35.5 L RDW Coeff of Derik 12.2 Plt Count 516 H MPV 10.5 Immature Gran % (Auto) 0.4 Neut % (Auto) 78.1 Lymph % (Auto) 12.6 Gila % (Auto) 8.6 Eos % (Auto) 0.1 Baso % (Auto) 0.2 Neut # (Auto) 15.41 H Lymph # (Auto) 2.48 Gila # (Auto) 1.69 H Eos # (Auto) 0.02 Baso # (Auto) 0.03 Immature Gran # (Auto) 0.08 Absolute Nucleated RBC Nucleated RBC % (auto) Neutrophils % (Manual) Band Neutrophils % Lymphocytes % (Manual) Prolymphocyte % Reactive Lymphs % (Man) Monocytes % (Manual) Eosinophils % (Manual) Basophils % (Manual) Metamyelocytes % (Man) Myelocytes % (Man) Promyelocytes % (Man) Blast Cells % (Manual) Plasma Cell % (Manual) Other Cells % Nucleated RBC % Neutrophils # (Manual) Band Neutrophils # Total Absolute Neuts Lymphocytes # (Manual) Prolymphocyte # Reactive Lymphs # Total Abs Lymphocytes Monocytes # (Manual) Eosinophils # (Manual) Basophils # (Manual) Metamyelocytes # (Man) Myelocytes # (Manual) Promyelocytes # (Man) Blast Cells # (Man) Plasma Cell # (Manual) Other Cells # Nucleated RBCs # (Man) Hypersegmented Neuts Hyposegmented Neuts Hypogranular Neuts Large Granular Lymphs # Lrg Granular Lymphs Hairy Cells Smudge Cells Toxic Granulation Toxic Vacuolation Dohle Bodies Ilir Rods Platelet Estimate Hypogranular Platelets Clumped Platelets Giant Platelets Platelet Satelliting RBC Morphology Polychromasia Hypochromasia Poikilocytosis Basophilic Stippling Anisocytosis Microcytosis Macrocytosis Spherocytes Pappenheimer Bodies Sickle Cells Target Cells Tear Drop Cells Ovalocytes Stomatocytes Olivares-Burgaw Bodies Echinocytes Acanthocytes (Spur) Rouleaux RBC Agglutinates Schistocytes Sezary Cell PT INR Sodium 138 Potassium 2.9 L Chloride 91 L Carbon Dioxide 33 H Anion Gap 14 H BUN 15 Creatinine 0.82 Est Cr Clr Drug Dosing 109.5 Est GFR ( Amer) 112.1 Est GFR (Non-Af Amer) 96.7 BUN/Creatinine Ratio 18.3 Glucose 91 Calcium 10.2 H Total Bilirubin 6.9 H Direct Bilirubin 2.7 H AST 545 H ALT 1481 H Alkaline Phosphatase 62 C-Reactive Protein 2.23 H Total Protein 8.7 H Albumin 4.7 Globulin 4.0 Albumin/Globulin Ratio 1.2 Lipase 18 TSH Free T4 HCG, Quant Urine Color Urine Appearance Urine pH Ur Specific [place] Urine Protein Urine Glucose (UA) Urine Ketones Urine Blood Urine Nitrite Urine Bilirubin Urine Urobilinogen Ur Leukocyte Esterase Urine RBC Urine WBC Ur Epithelial Cells Urine Bacteria Urine Mucus Urine Opiates Screen Ur Methadone, Qual Acetaminophen Urine Barbiturates Ur Phencyclidine (PCP) U Amphetamin/Meth Scrn MDMA (Ecstasy) Screen U Benzodiazepines Scrn Ur Cocaine Metabolite U Marijuana (THC) Screen Adenovirus (PCR) Anaplasma Smear See Comment Babesia Smear See Comment B. pertussis DNA (PCR) B.parapertussis DNA PCR C. pneumoniae DNA (PCR) Coronavirus OC43 (PCR) Coronavirus HKU1 (PCR) Coronavirus 229E (PCR) SARS-CoV-2 (PCR) Coronavirus NL63 (PCR) Monoscreen Human Metapneumovir PCR Influenza Type A (PCR) Influenza Type B (PCR) M. pneumoniae (PCR) Parainfluenza 1 (PCR) Parainfluenza 2 (PCR) Parainfluenza 3 (PCR) Parainfluenza 4 (PCR) RSV (PCR) Entero/Rhino (PCR) Blood Parasites ID 05/09/22 05/09/22 05/09/22 17:16 17:37 20:00 WBC RBC Hgb Hct MCV MCH MCHC RDW Std Deviation RDW Coeff of Derik Plt Count MPV Immature Gran % (Auto) Neut % (Auto) Lymph % (Auto) Gila % (Auto) Eos % (Auto) Baso % (Auto) Neut # (Auto) Lymph # (Auto) [place]ila # (Auto) Eos # (Auto) Baso # (Auto) Immature Gran # (Auto) Absolute Nucleated RBC Nucleated RBC % (auto) Neutrophils % (Manual) Band Neutrophils % Lymphocytes % (Manual) Prolymphocyte % Reactive Lymphs % (Man) Monocytes % (Manual) Eosinophils % (Manual) Basophils % (Manual) Metamyelocytes % (Man) Myelocytes % (Man) Promyelocytes % (Man) Blast Cells % (Manual) Plasma Cell % (Manual) Other Cells % Nucleated RBC % Neutrophils # (Manual) Band Neutrophils # Total Absolute Neuts Lymphocytes # (Manual) Prolymphocyte # Reactive Lymphs # Total Abs Lymphocytes Monocytes # (Manual) Eosinophils # (Manual) Basophils # (Manual) Metamyelocytes # (Man) Myelocytes # (Manual) Promyelocytes # (Man) Blast Cells # (Man) Plasma Cell # (Manual) Other Cells # Nucleated RBCs # (Man) Hypersegmented Neuts Hyposegmented Neuts Hypogranular Neuts Large Granular Lymphs # Lrg Granular Lymphs Hairy Cells Smudge Cells Toxic Granulation Toxic Vacuolation Dohle Bodies Ilir Rods Platelet Estimate Hypogranular Platelets Clumped Platelets Giant Platelets Platelet Satelliting RBC Morphology Polychromasia Hypochromasia Poikilocytosis Basophilic Stippling Anisocytosis Microcytosis Macrocytosis Spherocytes Pappenheimer Bodies Sickle Cells Target Cells Tear Drop Cells Ovalocytes Stomatocytes Olivares-[place]urg[place] Bodies Echinocytes Acanthocytes (Spur) Rouleaux RBC Agglutinates Schistocytes Sezary Cell PT INR Sodium Potassium Chloride Carbon Dioxide Anion Gap BUN Creatinine Est Cr Clr Drug Dosing Est GFR ( Amer) Est GFR (Non-Af Amer) BUN/Creatinine Ratio Glucose Calcium Total Bilirubin Direct Bilirubin AST ALT Alkaline Phosphatase C-Reactive Protein Total Protein Albumin Globulin Albumin/Globulin Ratio Lipase TSH Free T4 HCG, Quant [id number] Urine Color Urine Appearance Urine pH Ur Specific [place] Urine Protein Urine Glucose (UA) Urine Ketones Urine Blood Urine Nitrite Urine Bilirubin Urine Urobilinogen Ur Leukocyte Esterase Urine RBC Urine WBC Ur Epithelial Cells Urine Bacteria Urine Mucus Urine Opiates Screen Ur Methadone, Qual Acetaminophen Urine Barbiturates Ur Phencyclidine (PCP) U Amphetamin/Meth Scrn MDMA (Ecstasy) Screen U Benzodiazepines Scrn Ur Cocaine Metabolite U Marijuana (THC) Screen Adenovirus (PCR) Not Detected Anaplasma Smear Babesia Smear B. pertussis DNA (PCR) Not Detected B.parapertussis DNA PCR Not Detected C. pneumoniae DNA (PCR) Not Detected Coronavirus OC43 (PCR) Not Detected Coronavirus HKU1 (PCR) Not Detected Coronavirus 229E (PCR) Not Detected SARS-CoV-2 (PCR) Not Detected Coronavirus NL63 (PCR) Not Detected Monoscreen Negative Human Metapneumovir PCR Not Detected Influenza Type A (PCR) Not Detected Influenza Type B (PCR) Not Detected M. pneumoniae (PCR) Not Detected Parainfluenza 1 (PCR) Not Detected Parainfluenza 2 (PCR) Not Detected Parainfluenza 3 (PCR) Not Detected Parainfluenza 4 (PCR) Not Detected RSV (PCR) Not Detected Entero/Rhino (PCR) Not Detected Blood Parasites ID 05/09/22 05/09/22 05/09/22 20:00 21:11 21:11 WBC RBC Hgb Hct MCV MCH MCHC RDW Std Deviation RDW Coeff of Derik Plt Count MPV Immature Gran % (Auto) Neut % (Auto) Lymph % (Auto) Gila % (Auto) Eos % (Auto) Baso % (Auto) Neut # (Auto) Lymph # (Auto) Gila # (Auto) Eos # (Auto) Baso # (Auto) Immature Gran # (Auto) Absolute Nucleated RBC Nucleated RBC % (auto) Neutrophils % (Manual) Band Neutrophils % Lymphocytes % (Manual) Prolymphocyte % Reactive Lymphs % (Man) Monocytes % (Manual) Eosinophils % (Manual) Basophils % (Manual) Metamyelocytes % (Man) Myelocytes % (Man) Promyelocytes % (Man) Blast Cells % (Manual) Plasma Cell % (Manual) Other Cells % Nucleated RBC % Neutrophils # (Manual) Band Neutrophils # Total Absolute Neuts Lymphocytes # (Manual) Prolymphocyte # Reactive Lymphs # Total Abs Lymphocytes Monocytes # (Manual) Eosinophils # (Manual) Basophils # (Manual) Metamyelocytes # (Man) Myelocytes # (Manual) Promyelocytes # (Man) Blast Cells # (Man) Plasma Cell # (Manual) Other Cells # Nucleated RBCs # (Man) Hypersegmented Neuts Hyposegmented Neuts Hypogranular Neuts Large Granular Lymphs # Lrg Granular Lymphs Hairy Cells Smudge Cells Toxic Granulation Toxic Vacuolation Dohle Bodies Ilir Rods Platelet Estimate Hypogranular Platelets Clumped Platelets Giant Platelets Platelet Satelliting RBC Morphology Polychromasia Hypochromasia Poikilocytosis Basophilic Stippling Anisocytosis Microcytosis Macrocytosis Spherocytes Pappenheimer Bodies Sickle Cells Target Cells Tear Drop Cells Ovalocytes Stomatocytes Olivares-[place] Bodies Echinocytes Acanthocytes (Spur) Rouleaux RBC Agglutinates Schistocytes Sezary Cell PT 11.9 INR 1.1 Sodium Potassium Chloride Carbon Dioxide Anion Gap BUN Creatinine Est Cr Clr Drug Dosing Est GFR ( Amer) Est GFR (Non-Af Amer) BUN/Creatinine Ratio Glucose Calcium Total Bilirubin Direct Bilirubin AST ALT Alkaline Phosphatase C-Reactive Protein Total Protein Albumin Globulin Albumin/Globulin Ratio Lipase TSH 0.033 L Free T4 1.95 H HCG, Quant Urine Color Urine Appearance Urine pH Ur Specific [place] Urine Protein Urine Glucose (UA) Urine Ketones Urine Blood Urine Nitrite Urine Bilirubin Urine Urobilinogen Ur Leukocyte Esterase Urine RBC Urine WBC Ur Epithelial Cells Urine Bacteria Urine Mucus Urine Opiates Screen Ur Methadone, Qual Acetaminophen < 3 L Urine Barbiturates Ur Phencyclidine (PCP) U Amphetamin/Meth Scrn MDMA (Ecstasy) Screen U Benzodiazepines Scrn Ur Cocaine Metabolite U Marijuana (THC) Screen Adenovirus (PCR) Anaplasma Smear Babesia Smear B. pertussis DNA (PCR) B.parapertussis DNA PCR C. pneumoniae DNA (PCR) Coronavirus OC43 (PCR) Coronavirus HKU1 (PCR) Coronavirus 229E (PCR) SARS-CoV-2 (PCR) Coronavirus NL63 (PCR) Monoscreen Human Metapneumovir PCR Influenza Type A (PCR) Influenza Type B (PCR) M. pneumoniae (PCR) Parainfluenza 1 (PCR) Parainfluenza 2 (PCR) Parainfluenza 3 (PCR) Parainfluenza 4 (PCR) RSV (PCR) Entero/Rhino (PCR) Blood Parasites ID 05/09/22 05/10/22 05/10/22 23:19 00:48 05:47 WBC Cancelled RBC Cancelled Hgb Cancelled Hct Cancelled MCV Cancelled MCH Cancelled MCHC Cancelled RDW Std Deviation Cancelled RDW Coeff of Derik Cancelled Plt Count Cancelled MPV Cancelled Immature Gran % (Auto) Cancelled Neut % (Auto) Cancelled Lymph % (Auto) Cancelled Gila % (Auto) Cancelled Eos % (Auto) Cancelled Baso % (Auto) Cancelled Neut # (Auto) Cancelled Lymph # (Auto) Cancelled Gila # (Auto) Cancelled Eos # (Auto) Cancelled Baso # (Auto) Cancelled Immature Gran # (Auto) Cancelled Absolute Nucleated RBC Cancelled Nucleated RBC % (auto) Cancelled Neutrophils % (Manual) Cancelled Band Neutrophils % Cancelled Lymphocytes % (Manual) Cancelled Prolymphocyte % Cancelled Reactive Lymphs % (Man) Cancelled Monocytes % (Manual) Cancelled Eosinophils % (Manual) Cancelled Basophils % (Manual) Cancelled Metamyelocytes % (Man) Cancelled Myelocytes % (Man) Cancelled Promyelocytes % (Man) Cancelled Blast Cells % (Manual) Cancelled Plasma Cell % (Manual) Cancelled Other Cells % Cancelled Nucleated RBC % Cancelled Neutrophils # (Manual) Cancelled Band Neutrophils # Cancelled Total Absolute Neuts Cancelled Lymphocytes # (Manual) Cancelled Prolymphocyte # Cancelled Reactive Lymphs # Cancelled Total Abs Lymphocytes Cancelled Monocytes # (Manual) Cancelled Eosinophils # (Manual) Cancelled Basophils # (Manual) Cancelled Metamyelocytes # (Man) Cancelled Myelocytes # (Manual) Cancelled Promyelocytes # (Man) Cancelled Blast Cells # (Man) Cancelled Plasma Cell # (Manual) Cancelled Other Cells # Cancelled Nucleated RBCs # (Man) Cancelled Hypersegmented Neuts Cancelled Hyposegmented Neuts Cancelled Hypogranular Neuts Cancelled Large Granular Lymphs Cancelled # Lrg Granular Lymphs Cancelled Hairy Cells Cancelled Smudge Cells Cancelled Toxic Granulation Cancelled Toxic Vacuolation Cancelled Dohle Bodies Cancelled Ilir Rods Cancelled Platelet Estimate Cancelled Hypogranular Platelets Cancelled Clumped Platelets Cancelled Giant Platelets Cancelled Platelet Satelliting Cancelled RBC Morphology Cancelled Polychromasia Cancelled Hypochromasia Cancelled Poikilocytosis Cancelled Basophilic Stippling Cancelled Anisocytosis Cancelled Microcytosis Cancelled Macrocytosis Cancelled Spherocytes Cancelled Pappenheimer Bodies Cancelled Sickle Cells Cancelled Target Cells Cancelled Tear Drop Cells Cancelled Ovalocytes Cancelled Stomatocytes Cancelled Olivares-[place]urg[place] Bodies Cancelled Echinocytes Cancelled Acanthocytes (Spur) Cancelled Rouleaux Cancelled RBC Agglutinates Cancelled Schistocytes Cancelled Sezary Cell Cancelled PT INR Sodium Potassium Chloride Carbon Dioxide Anion Gap BUN Creatinine Est Cr Clr Drug Dosing Est GFR ( Amer) Est GFR (Non-Af Amer) BUN/Creatinine Ratio Glucose Calcium Total Bilirubin Direct Bilirubin AST ALT Alkaline Phosphatase C-Reactive Protein Total Protein Albumin Globulin Albumin/Globulin Ratio Lipase TSH Free T4 HCG, Quant Urine Color [place] Urine Appearance Cloudy A Urine pH Ur Specific [place] 1.024 Urine Protein Urine Glucose (UA) Urine Ketones Urine Blood Urine Nitrite Urine Bilirubin Urine Urobilinogen Ur Leukocyte Esterase Urine RBC 0-4 Urine WBC 5-10 H Ur Epithelial Cells >30 H Urine Bacteria 2+ H Urine Mucus Present A Urine Opiates Screen Neg Ur Methadone, Qual Neg Acetaminophen Urine Barbiturates Neg Ur Phencyclidine (PCP) Neg U Amphetamin/Meth Scrn Neg MDMA (Ecstasy) Screen Neg U Benzodiazepines Scrn Pos H Ur Cocaine Metabolite Neg U Marijuana (THC) Screen Pos H Adenovirus (PCR) Anaplasma Smear Babesia Smear B. pertussis DNA (PCR) B.parapertussis DNA PCR C. pneumoniae DNA (PCR) Coronavirus OC43 (PCR) Coronavirus HKU1 (PCR) Coronavirus 229E (PCR) SARS-CoV-2 (PCR) Coronavirus NL63 (PCR) Monoscreen Human Metapneumovir PCR Influenza Type A (PCR) Influenza Type B (PCR) M. pneumoniae (PCR) Parainfluenza 1 (PCR) Parainfluenza 2 (PCR) Parainfluenza 3 (PCR) Parainfluenza 4 (PCR) RSV (PCR) Entero/Rhino (PCR) Blood Parasites ID Cancelled 05/10/22 05/10/22 05:47 07:26 WBC 13.85 H RBC 4.94 Hgb 14.7 D Hct 41.5 MCV 84.0 MCH 29.8 MCHC 35.4 RDW Std Deviation 37.1 RDW Coeff of Derik 12.3 Plt Count 343 MPV 10.6 Immature Gran % (Auto) 0.4 Neut % (Auto) 74.7 Lymph % (Auto) 15.5 Gila % (Auto) 9.1 Eos % (Auto) 0.2 Baso % (Auto) 0.1 Neut # (Auto) 10.36 H Lymph # (Auto) 2.14 Gila # (Auto) 1.26 H Eos # (Auto) 0.03 Baso # (Auto) 0.01 Immature Gran # (Auto) 0.05 Absolute Nucleated RBC Nucleated RBC % (auto) Neutrophils % (Manual) Band Neutrophils % Lymphocytes % (Manual) Prolymphocyte % Reactive Lymphs % (Man) Monocytes % (Manual) Eosinophils % (Manual) Basophils % (Manual) Metamyelocytes % (Man) Myelocytes % (Man) Promyelocytes % (Man) Blast Cells % (Manual) Plasma Cell % (Manual) Other Cells % Nucleated RBC % Neutrophils # (Manual) Band Neutrophils # Total Absolute Neuts Lymphocytes # (Manual) Prolymphocyte # Reactive Lymphs # Total Abs Lymphocytes Monocytes # (Manual) Eosinophils # (Manual) Basophils # (Manual) Metamyelocytes # (Man) Myelocytes # (Manual) Promyelocytes # (Man) Blast Cells # (Man) Plasma Cell # (Manual) Other Cells # Nucleated RBCs # (Man) Hypersegmented Neuts Hyposegmented Neuts Hypogranular Neuts Large Granular Lymphs # Lrg Granular Lymphs Hairy Cells Smudge Cells Toxic Granulation Toxic Vacuolation Dohle Bodies Ilir Rods Platelet Estimate Hypogranular Platelets Clumped Platelets Giant Platelets Platelet Satelliting RBC Morphology Polychromasia Hypochromasia Poikilocytosis Basophilic Stippling Anisocytosis Microcytosis Macrocytosis Spherocytes Pappenheimer Bodies Sickle Cells Target Cells Tear Drop Cells Ovalocytes Stomatocytes Olivares-Burg[place] Bodies Echinocytes Acanthocytes (Spur) Rouleaux RBC Agglutinates Schistocytes Sezary Cell PT INR Sodium 140 Potassium 2.9 L Chloride 101 Carbon Dioxide 29 Anion Gap 10 BUN 12 Creatinine 0.57 L Est Cr Clr Drug Dosing 159.2 Est GFR ( Amer) 145.2 Est GFR (Non-Af Amer) 125.3 BUN/Creatinine Ratio 21.1 H Glucose 94 Calcium 8.8 Total Bilirubin 6.3 H Direct Bilirubin AST 419 H ALT 1264 H Alkaline Phosphatase 49 C-Reactive Protein Total Protein 6.5 D Albumin 3.6 Globulin 2.9 Albumin/Globulin Ratio 1.2 Lipase TSH Free T4 HCG, Quant Urine Color Urine Appearance Urine pH Ur Specific [place] Urine Protein Urine Glucose (UA) Urine Ketones Urine Blood Urine Nitrite Urine Bilirubin Urine Urobilinogen Ur Leukocyte Esterase Urine RBC Urine WBC Ur Epithelial Cells Urine Bacteria Urine Mucus Urine Opiates Screen Ur Methadone, Qual Acetaminophen Urine Barbiturates Ur Phencyclidine (PCP) U Amphetamin/Meth Scrn MDMA (Ecstasy) Screen U Benzodiazepines Scrn Ur Cocaine Metabolite U Marijuana (THC) Screen Adenovirus (PCR) Anaplasma Smear Babesia Smear B. pertussis DNA (PCR) B.parapertussis DNA PCR C. pneumoniae DNA (PCR) Coronavirus OC43 (PCR) Coronavirus HKU1 (PCR) Coronavirus 229E (PCR) SARS-CoV-2 (PCR) Coronavirus NL63 (PCR) Monoscreen Human Metapneumovir PCR Influenza Type A (PCR) Influenza Type B (PCR) M. pneumoniae (PCR) Parainfluenza 1 (PCR) Parainfluenza 2 (PCR) Parainfluenza 3 (PCR) Parainfluenza 4 (PCR) RSV (PCR) Entero/Rhino (PCR) Blood Parasites ID
--- NOTE | 2022-05-10 18:06 | Hospitalist Progress Note ---
Date of Service May 10, 2022 Assessment & Plan (1) Hypertension: Plan: Almost certainly reactive. Blood pressure was up, and then once she was able to rest and was in less distress, it has since normalized. Continue to follow, but no intervention needed at this time. No symptoms of hypertensive urgency/crisis (2) Elevated liver enzymes: Plan: Agree with gastroenterologyalmost certainly from a viral etiologya "true" hepatitis versus viral gastroenteritis with subsequent transaminitis. I suspect her bilirubin is largely due to passive congestion from liver inflammation. Continue to trend. INR fairly reassuring overall. (3) Nausea and vomiting: Plan: Was intractable. Now appears to have improved. Continue to follow, given that she is only had 1 sandwich, but the fact that she was able to eat at all and it is staying down is quite reassuring. Concern on hyperemesis given that she is right at the appropriate time for twin gestation to be suffering from such, but at the same time given the way she is showing improvement, hopefully this was all viral. Supportive care and follow (4) Leukocytosis: Plan: No signs or symptoms of bacterial infection noted. Suspect reactivelargely due to the intractable nausea vomiting. Continue to follow. Admission and Anticipated Discharge Date Admission Date: May 09, 2022 Subjective Seen twice today. First time sleeping appearing comfortable. Later sitting upright, smiling, talking with her family. At this point she had eaten most of a sandwich and has not had any subsequent nausea or vomiting. She noted she has not really had any vomiting since she has been here. Review of Systems Review of Systems: All systems reviewed & are unremarkable except as noted in HPI & below Physical Exam Physical Exam: In general she is awake and alert pleasant no distress. HEENT normocephalic atraumatic mucous membranes moist. Breathing unlabored no accessory muscle use good effort. Skin shows no rashes no pallor or icterus. Neuro without focal deficits. Reviewed CBC, CMP Results & Data Results & Data ([facility]) Vital Signs (Past 12 Hours) Vital Signs Temp Pulse Resp BP Pulse Ox O2 Del Method 05/10/22 14:55 97.7 F 101 H 18 110/77 96 Room Air 05/10/22 11:30 97.5 F L 93 H 18 163/85 H 98 Room Air 05/10/22 07:50 98.6 F 91 H 16 105/73 97 Room Air PG Care Time/CCT Total # of Minutes Spent Total Time Spent with Patient: Total time spent is greater than 50% in coordination of care (as documented) at patient's floor/unit and/or counseling patient: Coding Level of Care Code 00924 SUB INP/OBS CARE 3/50MIN Diagnoses Hypertension I10 Elevated liver enzymes R74.8 Nausea and vomiting R11.2 Leukocytosis D72.829
[2022-05-11] MEDS: NSS + 20MEQ KCL 20 MEQ/1,000 ML BAG IV SCH ×5 (03:23→21:48)
[2022-05-11] MEDS: PRENATAL VITAMIN 1 TAB PO SCH (08:18)
[2022-05-11] MEDS: LABETALOL HCL 100 MG TAB PO SCH ×2 (08:18→21:28)
[2022-05-11 08:49] LABS: Basophils # (auto) 0.02 K/uL (0-0.2); Basophils % (auto) 0.2 %; Eosinophils # (auto) 0.16 K/uL (0-0.50); Eosinophils % (auto) 1.4 %; Immature Granulocytes # (auto) 0.05 K/uL (0.01-0.20); Immature Granulocytes % (auto) 0.4 %; Lymphocytes # (auto) 2.86 K/uL (1.2-3.4); Lymphocytes % (auto) 25.3 %; Mean Corpuscular Hemoglobin 30.8 pg (25.0-34.0); Mean Corpuscular Hgb Conc 36.1 g/dL (32.0-36.0); Mean Corpuscular Volume 85.3 fL (80.0-100.0); Mean Platelet Volume 10.9 fL (9.4-12.4); Monocytes # (auto) 0.72 K/uL (0.11-0.59); Monocytes % (auto) 6.4 %; Neutrophils # (auto) 7.51 K/uL (1.40-6.50); Neutrophils % (auto) 66.3 %; Platelet Count 258 K/uL (130-400); RDW Coefficient of Variation 12.6 % (11.5-14.5); RDW Standard Deviation 38.7 fL (36.4-46.3); Red Blood Count 4.22 M/uL (4.20-5.40); White Blood Count 11.32 K/ul (4.8-10.8)
[2022-05-11 09:03] LABS: INR 1.1 (0.9-1.1); Prothrombin Time 11.7 Seconds (9.0-12.0)
[2022-05-11] MEDS ORDERED: METOCLOPRAMIDE HCL 10 MG TABLET PO PRN (09:35)
--- NOTE | 2022-05-11 09:38 | Progress Note ---
Date of Service May 11, 2022 Assessment & Plan (1) Elevated liver enzymes: (2) Hyperemesis gravidarum: Plan: Meets criteria for hyperemesis, will stop diet and changed to clears and change her antiemetics to scheduled instead of as needed. She is unable to tolerate will need to go strict n.p.o. and control her nausea and vomiting before advancing her diet again to clears. Prescription for Diclegis and Phenergan per rectal was sent through [facility] to her pharmacy for medications to take after she is discharged If patient is unable to tolerate despite IV medications, use Phenergan rectal if needed Appreciate consult team assisting patient with her care during this admission, most likely will not go home today Admission and Anticipated Discharge Date Admission Date: May 09, 2022 Subjective Patient laying comfortably in bed, just ate a large breakfast. Was able to eat some weeks, in addition to apple sauce and additional water and juice. States she feels well but slightly nauseated at this time. After I left room, nursing contacted me stating that she vomited 450 mL, and IV team will be coming to restart her IVs Review of Systems Review of Systems: All systems reviewed & are unremarkable except as noted in HPI & below Physical Exam Constitutional: WD/WN, vitals as above Respiratory: normal respiratory effort, lungs clear to auscultation Cardiovascular: RRR, no murmur, no edema Results & Data ([facility]) Vital Signs (Past 12 Hours) Vital Signs Temp Pulse Resp BP O2 Del Method 05/11/22 08:05 36.4 C L 84 16 119/78 Room Air 05/11/22 00:45 36.7 C 87 18 124/77 Laboratory Results Laboratory Results WBC 11.32 K/ul (4.8-10.8) H 05/11/22 07:54 RBC 4.22 M/uL (4.20-5.40) 05/11/22 07:54 Hgb 13.0 g/dl (12.0-16.0) 05/11/22 07:54 Hct 36.0 % (37.0-47.0) L 05/11/22 07:54 MCV 85.3 fL (80.0-100.0) 05/11/22 07:54 MCH 30.8 pg (25.0-34.0) 05/11/22 07:54 MCHC 36.1 g/dL (32.0-36.0) H 05/11/22 07:54 RDW Std Deviation 38.7 fL (36.4-46.3) 05/11/22 07:54 RDW Coeff of Derik 12.6 % (11.5-14.5) 05/11/22 07:54 Plt Count 258 K/uL (130-400) 05/11/22 07:54 MPV 10.9 fL (9.4-12.4) 05/11/22 07:54 Immature Gran % (Auto) 0.4 % 05/11/22 07:54 Neut % (Auto) 66.3 % 05/11/22 07:54 Lymph % (Auto) 25.3 % 05/11/22 07:54 [place] % (Auto) 6.4 % 05/11/22 07:54 Eos % (Auto) 1.4 % 05/11/22 07:54 Baso % (Auto) 0.2 % 05/11/22 07:54 Neut # (Auto) 7.51 K/uL (1.40-6.50) H 05/11/22 07:54 Lymph # (Auto) 2.86 K/uL (1.2-3.4) 05/11/22 07:54 [place] # (Auto) 0.72 K/uL (0.11-0.59) H 05/11/22 07:54 Eos # (Auto) 0.16 K/uL (0-0.50) 05/11/22 07:54 Baso # (Auto) 0.02 K/uL (0-0.2) 05/11/22 07:54 Immature Gran # (Auto) 0.05 K/uL (0.01-0.20) 05/11/22 07:54 Absolute Nucleated RBC Cancelled 05/10/22 05:47 Nucleated RBC % (auto) Cancelled 05/10/22 05:47 Neutrophils % (Manual) Cancelled 05/10/22 05:47 Band Neutrophils % Cancelled 05/10/22 05:47 Lymphocytes % (Manual) Cancelled 05/10/22 05:47 Prolymphocyte % Cancelled 05/10/22 05:47 Reactive Lymphs % (Man) Cancelled 05/10/22 05:47 Monocytes % (Manual) Cancelled 05/10/22 05:47 Eosinophils % (Manual) Cancelled 05/10/22 05:47 Basophils % (Manual) Cancelled 05/10/22 05:47 Metamyelocytes % (Man) Cancelled 05/10/22 05:47 Myelocytes % (Man) Cancelled 05/10/22 05:47 Promyelocytes % (Man) Cancelled 05/10/22 05:47 Blast Cells % (Manual) Cancelled 05/10/22 05:47 Plasma Cell % (Manual) Cancelled 05/10/22 05:47 Other Cells % Cancelled 05/10/22 05:47 Nucleated RBC % Cancelled 05/10/22 05:47 Neutrophils # (Manual) Cancelled 05/10/22 05:47 Band Neutrophils # Cancelled 05/10/22 05:47 Total Absolute Neuts Cancelled 05/10/22 05:47 Lymphocytes # (Manual) Cancelled 05/10/22 05:47 Prolymphocyte # Cancelled 05/10/22 05:47 Reactive Lymphs # Cancelled 05/10/22 05:47 Total Abs Lymphocytes Cancelled 05/10/22 05:47 Monocytes # (Manual) Cancelled 05/10/22 05:47 Eosinophils # (Manual) Cancelled 05/10/22 05:47 Basophils # (Manual) Cancelled 05/10/22 05:47 Metamyelocytes # (Man) Cancelled 05/10/22 05:47 Myelocytes # (Manual) Cancelled 05/10/22 05:47 Promyelocytes # (Man) Cancelled 05/10/22 05:47 Blast Cells # (Man) Cancelled 05/10/22 05:47 Plasma Cell # (Manual) Cancelled 05/10/22 05:47 Other Cells # Cancelled 05/10/22 05:47 Nucleated RBCs # (Man) Cancelled 05/10/22 05:47 Hypersegmented Neuts Cancelled 05/10/22 05:47 Hyposegmented Neuts Cancelled 05/10/22 05:47 Hypogranular Neuts Cancelled 05/10/22 05:47 Large Granular Lymphs Cancelled 05/10/22 05:47 # Lrg Granular Lymphs Cancelled 05/10/22 05:47 Hairy Cells Cancelled 05/10/22 05:47 Smudge Cells Cancelled 05/10/22 05:47 Toxic Granulation Cancelled 05/10/22 05:47 Toxic Vacuolation Cancelled 05/10/22 05:47 Dohle Bodies Cancelled 05/10/22 05:47 Ilir Rods Cancelled 05/10/22 05:47 Platelet Estimate Cancelled 05/10/22 05:47 Hypogranular Platelets Cancelled 05/10/22 05:47 Clumped Platelets Cancelled 05/10/22 05:47 Giant Platelets Cancelled 05/10/22 05:47 Platelet Satelliting Cancelled 05/10/22 05:47 RBC Morphology Cancelled 05/10/22 05:47 Polychromasia Cancelled 05/10/22 05:47 Hypochromasia Cancelled 05/10/22 05:47 Poikilocytosis Cancelled 05/10/22 05:47 Basophilic Stippling Cancelled 05/10/22 05:47 Anisocytosis Cancelled 05/10/22 05:47 Microcytosis Cancelled 05/10/22 05:47 Macrocytosis Cancelled 05/10/22 05:47 Spherocytes Cancelled 05/10/22 05:47 Pappenheimer Bodies Cancelled 05/10/22 05:47 Sickle Cells Cancelled 05/10/22 05:47 Target Cells Cancelled 05/10/22 05:47 Tear Drop Cells Cancelled 05/10/22 05:47 Ovalocytes Cancelled 05/10/22 05:47 Stomatocytes Cancelled 05/10/22 05:47 [place] Bodies Cancelled 05/10/22 05:47 Echinocytes Cancelled 05/10/22 05:47 Acanthocytes (Spur) Cancelled 05/10/22 05:47 Rouleaux Cancelled 05/10/22 05:47 RBC Agglutinates Cancelled 05/10/22 05:47 Schistocytes Cancelled 05/10/22 05:47 Sezary Cell Cancelled 05/10/22 05:47 PT 11.7 Seconds (9.0-12.0) 05/11/22 07:54 INR 1.1 (0.9-1.1) 05/11/22 07:54 Sodium 140 mmol/L (136-145) 05/10/22 05:47 Potassium 2.9 mmol/L (3.5-5.1) L 05/10/22 05:47 Chloride 101 mmol/L (98-107) 05/10/22 05:47 Carbon Dioxide 29 mmol/L (21-32) 05/10/22 05:47 Anion Gap 10 (3-11) 05/10/22 05:47 BUN 12 mg/dl (6-23) 05/10/22 05:47 Creatinine 0.57 mg/dl (0.6-1.2) L 05/10/22 05:47 Est Cr Clr Drug Dosing 159.2 ml/min 05/10/22 05:47 Est GFR ( Amer) 145.2 ml/min 05/10/22 05:47 Est GFR (Non-Af Amer) 125.3 ml/min 05/10/22 05:47 BUN/Creatinine Ratio 21.1 (10-20) H 05/10/22 05:47 Glucose 94 mg/dl (70-99(Fasting)) 05/10/22 05:47 Calcium 8.8 mg/dl (8.5-10.1) 05/10/22 05:47 Total Bilirubin 6.3 mg/dl (0.2-1.0) H 05/10/22 05:47 Direct Bilirubin 2.7 mg/dl (0-0.2) H 05/09/22 14:34 AST 419 U/L (13-39) H 05/10/22 05:47 ALT 1264 U/L (7-52) H 05/10/22 05:47 Alkaline Phosphatase 49 U/L (34-104) 05/10/22 05:47 C-Reactive Protein 2.23 mg/dl (0-0.5) H 05/09/22 14:34 Total Protein 6.5 gm/dl (6.0-8.3) D 05/10/22 05:47 Albumin 3.6 gm/dl (3.4-5.0) 05/10/22 05:47 Globulin 2.9 gm/dl (2.5-4.0) 05/10/22 05:47 Albumin/Globulin Ratio 1.2 (0.9-2) 05/10/22 05:47 Lipase 18 U/L (11-82) 05/09/22 14:34 TSH 0.033 uIu/ml (0.300-4.500) L 05/09/22 20:00 Free T4 1.95 ng/dl (0.61-1.60) H 05/09/22 20:00 HCG, Quant [id number] mIU/ml 05/09/22 17:37 Urine Color [place] 05/09/22 23:19 Urine Appearance Cloudy (Clear) A 05/09/22 23:19 Urine pH (4.5-7.5) 05/09/22 23:19 Ur Specific [place] 1.024 (1.000-1.030) 05/09/22 23:19 Urine Protein (Negative) 05/09/22 23:19 Urine Glucose (UA) (Negative) 05/09/22 23:19 Urine Ketones (Negative) 05/09/22 23:19 Urine Blood (Negative) 05/09/22 23:19 Urine Nitrite (Negative) 05/09/22 23:19 Urine Bilirubin (Negative) 05/09/22 23:19 Urine Urobilinogen (Negative) 05/09/22 23:19 Ur Leukocyte Esterase (Negative) 05/09/22 23:19 Urine RBC 0-4 /hpf (0-4) 05/09/22 23:19 Urine WBC 5-10 /hpf (0-5) H 05/09/22 23:19 Ur Epithelial Cells >30 /lpf (0-5) H 05/09/22 23:19 Urine Bacteria 2+ (Negative) H 05/09/22 23:19 Urine Mucus Present (None Prsent) A 05/09/22 23:19 Urine Opiates Screen Neg (Neg) 05/10/22 00:48 Ur Methadone, Qual Neg (Neg) 05/10/22 00:48 Acetaminophen < 3 ug/ml (10-30) L 05/09/22 21:11 Urine Barbiturates Neg (Neg) 05/10/22 00:48 Ur Phencyclidine (PCP) Neg (Neg) 05/10/22 00:48 U Amphetamin/Meth Scrn Neg (Neg) 05/10/22 00:48 MDMA (Ecstasy) Screen Neg (Neg) 05/10/22 00:48 U Benzodiazepines Scrn Pos (Neg) H 05/10/22 00:48 Ur Cocaine Metabolite Neg (Neg) 05/10/22 00:48 U Marijuana (THC) Screen Pos (Neg) H 05/10/22 00:48 IgG 1104.6 mg/dl (635-1741) 05/10/22 10:05 Adenovirus (PCR) Not Detected (NotDetected) 05/09/22 17:16 Anaplasma Smear See Comment 05/09/22 14:39 Babesia Smear See Comment 05/09/22 14:39 B. pertussis DNA (PCR) Not Detected (NotDetected) 05/09/22 17:16 B.parapertussis DNA PCR Not Detected (NotDetected) 05/09/22 17:16 C. pneumoniae DNA (PCR) Not Detected (NotDetected) 05/09/22 17:16 Coronavirus OC43 (PCR) Not Detected (NotDetected) 05/09/22 17:16 Coronavirus HKU1 (PCR) Not Detected (NotDetected) 05/09/22 17:16 Coronavirus 229E (PCR) Not Detected (NotDetected) 05/09/22 17:16 SARS-CoV-2 (PCR) Not Detected (NotDetected) 05/09/22 17:16 Coronavirus NL63 (PCR) Not Detected (NotDetected) 05/09/22 17:16 Monoscreen Negative (Negative) 05/09/22 20:00 Human Metapneumovir PCR Not Detected (NotDetected) 05/09/22 17:16 Influenza Type A (PCR) Not Detected (NotDetected) 05/09/22 17:16 Influenza Type B (PCR) Not Detected (NotDetected) 05/09/22 17:16 M. pneumoniae (PCR) Not Detected (NotDetected) 05/09/22 17:16 Parainfluenza 1 (PCR) Not Detected (NotDetected) 05/09/22 17:16 Parainfluenza 2 (PCR) Not Detected (NotDetected) 05/09/22 17:16 Parainfluenza 3 (PCR) Not Detected (NotDetected) 05/09/22 17:16 Parainfluenza 4 (PCR) Not Detected (NotDetected) 05/09/22 17:16 RSV (PCR) Not Detected (NotDetected) 05/09/22 17:16 Entero/Rhino (PCR) Not Detected (NotDetected) 05/09/22 17:16 Blood Parasites ID Cancelled 05/10/22 05:47 Impressions Gallbladder Ultrasound 05/09/22 17:59 ULTRASOUND RIGHT UPPER QUADRANT ABDOMEN CLINICAL HISTORY: Elevated hepatic transaminases. COMPARISON STUDY: Abdominal CT dated 12/17/2021. TECHNIQUE: Real-time, grayscale, and color flow sonography of the right upper quadrant of the abdomen was performed. Images are reviewed in the transverse and longitudinal planes. FINDINGS: Liver: The liver is normal in size and slightly heterogeneous in echotexture. There is no intrahepatic biliary ductal dilatation. The main portal vein is patent. Gallbladder: The gallbladder is normal in appearance. No shadowing gallstones are identified. There is no significant wall thickening or pericholecystic fluid. A sonographic Mccauley's sign is reportedly absent. The common bile duct measures up to 0.3 cm in diameter. Pancreas: Visualized portions of the pancreatic head and body are normal in appearance. The splenic vein is patent. Right kidney: Survey images of the right kidney demonstrate normal size and echotexture. There is no hydronephrosis. Ascites: None. IMPRESSION: No acute sonographic abnormality is seen in the right upper quadrant. No gallstones are identified. ACT 112: Negative or not required by law. Electronically signed by: James Brand M.D. 05/09/2022 7:12 PM Ultrasound 05/10/22 00:00 US OB <= 14 weeks fetus HISTORY: 27 years-old Female TWIN follow-up study in a patient with twin gestation COMPARISON: April 29, 2022 TECHNIQUE: Multiple real-time sonographic images of the deep pelvic structures were obtained transabdominally assessing grayscale appearance, color and spectral flow with M-mode analysis FINDINGS: Anteflexed uterus. Dichorionic diamniotic twin gestation redemonstrated. 1.4 x 0.9 x 2.9 cm subchorionic hematoma, previously 2.2 x 1.6 x 2.1 cm. Additional smaller subacute chronic hematomas are also present. Baby A is located inferiorly within the lower uterine segment on the left and demonstrates crown-rump length of 2.55 cm, 9 weeks 0 days with heart rate of 161 bpm. Gestational sac measures 3.42 cm. Baby B is located superiorly near the uterine fundus on the right and demonstrates crown-rump length of 2.67 cm, 8 weeks 5 days with heart rate of 167 bpm. Gestational sac measures 3.02 cm. Closed cervix. Right ovary measures 3.4 x 2.2 x 2.8 cm. 1.8 cm right ovarian corpus luteum. Left ovary measures 2.1 x 1.1 x 2.5 cm. Arterial inflow and venous outflow is documented bilaterally. IMPRESSION: 1. Living dichorionic diamniotic twin gestations. 2. Small bilateral subchorionic hemorrhages appear stable to mildly decreased in size from prior. 3. Closed cervix. ACT 112: Negative or not required by law. The above report was generated using voice recognition software. It may contain grammatical, syntax or spelling errors. Electronically signed by: Lamin Andrade M.D. 05/10/2022 8:51 AM Portal Vein US 05/10/22 00:00 US duplex portal hepatic veins CLINICAL HISTORY: Transaminitis, eval for thrombus COMPARISON STUDY: CT of the abdomen and pelvis January 16, 2022. TECHNIQUE: Color and duplex Doppler sonography of the major hepatic vessels was performed. FINDINGS: The main, right and left portal veins are patent with appropriately directed flow. Splenic vein is not well visualized due to overlying bowel gas. The middle, left and right hepatic veins are patent with appropriate phasicity. Visualized portions of the IVC are patent. IMPRESSION: Patent major hepatic vessels with appropriately directed flow. ACT 112: Negative or not required by law. Electronically signed by: Perry Mejia M.D. 05/10/2022 7:11 AM
[2022-05-11 10:21] LABS: Albumin Globulin Ratio 1.3 (0.9-2); BUN Creatinine Ratio 11.9 (10-20); Bilirubin,Total 2.6 mg/dl (0.2-1.0); Creatinine Clr Calc Pharmacy 153.8 ml/min; Est GFR (African American) 143.6 ml/min; Est GFR (Non-African American) 123.9 ml/min; Globulin 2.4 gm/dl (2.5-4.0); Potassium 3.2 mmol/L (3.5-5.1); Total Protein 5.4 gm/dl (6.0-8.3)
[2022-05-11] MEDS: ONDANSETRON INJ 2 MG/ML 2 ML VIAL IV SCH ×4 (10:21→21:47)
[2022-05-11] MEDS: PROMETHAZINE HCL 25 MG in SODIUM CHLORIDE 0.9% 50 ML IV SCH ×3 (11:04→21:51)
--- NOTE | 2022-05-11 11:41 | Communication Note ---
Date of Service: May 11, 2022 Liver panel is trending down. INR is normal at 1.1. Autoantibodies, ceruloplasmin and viral studies are still pending. Will continue to follow. Coding Level of Care Code None
[2022-05-11 12:34] LABS: HBSAG NON-REACTIVE (NON-REACTIVE); Hepatitis A Antibody IgM NON-REACTIVE (NON-REACTIVE); Hepatitis B Core Antibody IgM NON-REACTIVE (NON-REACTIVE)
[2022-05-11 15:43] LABS: Anti Nuclear Antibody Screen NEGATIVE (NEGATIVE); Ceruloplasmin 46 mg/dL (18-53); Smooth Muscle Antibody NEGATIVE (NEGATIVE)
--- NOTE | 2022-05-11 18:17 | Hospitalist Progress Note ---
Date of Service May 11, 2022 Assessment & Plan (1) Hypertension: Plan: Almost certainly reactive. Blood pressure was up, and then once she was able to rest and was in less distress, it has since normalized overall. No intervention needed (2) Elevated liver enzymes: Plan: Agree with gastroenterologyalmost certainly from a viral etiologya "true" hepatitis versus viral gastroenteritis with subsequent transaminitis. I suspect her bilirubin is largely due to passive congestion from liver inflammation. Trend back to normal (3) Nausea and vomiting: Plan: Unfortunately while she was feeling a bit better yesterday evening, this morning she is quite sick again. Probably does have hyperemesis but had a viral illness overlying it as well. Appreciate OB management of this. Explained diagnosis to patient in depth. (4) Leukocytosis: Plan: No signs or symptoms of bacterial infection noted. Suspect reactivelargely due to the intractable nausea vomiting. Overall picture reassuring from an infectious standpoint (5) Low TSH level: Plan: With elevated free T4. Biochemically this would be quite consistent with hyperthyroid. At the same time, with no tachycardia/diaphoresis, no trem ulousness, and hypertension resolving with improvement in her overall distress from when she first arrivedis also quite possible these values are spurious in the context of acute illness. Certainly do not want to leave it unchecked if she has hyperthyroidism, would ideally recheck in a few weeks as an outpatient. If she remains inpatient for at least a few days, to allow more time from initial check to follow-up, can consider recheck herewould likely still be abnormal, but the trend may also provide a bit of a hint. Admission and Anticipated Discharge Date Admission Date: May 09, 2022 Subjective Nauseated again. Tried to eat breakfast without much success. On [id number] medications by OB. Updated on labs and findings. Physical Exam Physical Exam: In general she is awake and alert pleasant but appears fatigued and somewhat nauseated. Breathing unlabored no accessory muscle use good effort. Skin shows no rashes no pallor or icterus. Neuro without focal deficits Results & Data Results & Data ([facility]) Vital Signs (Past 12 Hours) Vital Signs Temp Pulse Resp BP O2 Del Method 05/11/22 16:00 98.1 F 65 16 124/84 Room Air 05/11/22 12:26 97.7 F 84 16 120/82 Room Air 05/11/22 08:05 97.5 F L 84 16 119/78 Room Air PG Care Time/CCT Total # of Minutes Spent Total Time Spent with Patient: Total time spent is greater than 50% in coordination of care (as documented) at patient's floor/unit and/or counseling patient: Coding Level of Care Code 92088 SUB INP/OBS CARE 2/35MIN Diagnoses Hypertension I10 Elevated liver enzymes R74.8 Nausea and vomiting R11.2 Leukocytosis D72.829 Low TSH level R79.89
[2022-05-12] MEDS: ONDANSETRON INJ 2 MG/ML 2 ML VIAL IV SCH ×6 (02:03→22:03)
[2022-05-12] MEDS: PROMETHAZINE HCL 25 MG in SODIUM CHLORIDE 0.9% 50 ML IV SCH ×4 (04:00→22:04)
[2022-05-12 06:41] LABS: Hematocrit (blood only) 39.3 % (37.0-47.0); Hemoglobin 14.2 g/dl (12.0-16.0); Mean Corpuscular Hemoglobin 30.4 pg (25.0-34.0); Mean Corpuscular Hgb Conc 36.1 g/dL (32.0-36.0); Mean Corpuscular Volume 84.2 fL (80.0-100.0); Mean Platelet Volume 10.5 fL (9.4-12.4); Platelet Count 273 K/uL (130-400); RDW Coefficient of Variation 12.1 % (11.5-14.5); RDW Standard Deviation 36.4 fL (36.4-46.3); Red Blood Count 4.67 M/uL (4.20-5.40); White Blood Count 14.28 K/ul (4.8-10.8)
[2022-05-12 06:51] LABS: Anion Gap 7 (3-11); BUN Creatinine Ratio 9.5 (10-20); Blood Urea Nitrogen 4 mg/dl (6-23); Calcium 8.5 mg/dl (8.5-10.1); Carbon Dioxide 23 mmol/L (21-32); Chloride 103 mmol/L (98-107); Est GFR (African American) > 150.0 ml/min; Est GFR (Non-African American) 138.5 ml/min; Glucose 78 mg/dl (70-99(Fasting)); Potassium 3.6 mmol/L (3.5-5.1); Sodium 133 mmol/L (136-145)
[2022-05-12 07:08] LABS: Alanine Aminotransferase 1190 U/L (7-52); Albumin Globulin Ratio 1.3 (0.9-2); Albumin Level 3.4 gm/dl (3.4-5.0); Alkaline Phosphatase 60 U/L (34-104); Aspartate Aminotransferase 457 U/L (13-39); Bilirubin,Total 2.2 mg/dl (0.2-1.0); Globulin 2.7 gm/dl (2.5-4.0); Total Protein 6.1 gm/dl (6.0-8.3)
[2022-05-12] MEDS: NSS + 20MEQ KCL 20 MEQ/1,000 ML BAG IV SCH ×2 (07:34→18:28)
[2022-05-12] MEDS: PRENATAL VITAMIN 1 TAB PO SCH (08:58)
--- NOTE | 2022-05-12 08:59 | Obstetrical Progress Note ---
Date of Service May 12, 2022 Assessment & Plan Admission and Anticipated Discharge Date Admission Date: May 09, 2022 Subjective Patient feels about the same, still has nausea and on clears. Had 1 time BM with Diarrhea, watery No abd/ pelvic pain/ distention No VB BP's have been stable. Vital Signs Temp Pulse Pulse Resp BP Pulse Ox O2 Del Method 05/11/22 23:33 36.7 C 98 H 18 110/75 95 Room Air 05/11/22 21:27 93 H 128/88 05/11/22 19:35 Room Air 05/11/22 19:35 37.0 C 89 18 133/86 98 Room Air 05/11/22 16:00 36.7 C 65 16 124/84 Room Air 05/11/22 12:26 36.5 C 84 16 120/82 Room Air Intake and Output 05/11/22 05/12/22 05/12/22 22:59 06:59 14:59 Intake Total 1089.5 / 3427.5 1287 / 3427.5 Output Total 1000 / 3850 400 / 3850 Balance 89.5 / -422.5 887 / -422.5 Intake: IV 1089.5 / 3191.5 1051 / 3191.5 Nss + 20Meq KCl 20 meq In 1,000 987.5 / 2987.5 1000 / 2987.5 ml @ 125 mls/hr IV .Q8H MANDI Rx #:[id number] Promethazine HCl 25 mg In 102 / 204 51 / 204 Sodium Chloride 0.9% 50 ml @ 204 mls/hr IV Q6H MANDI Rx#: [id number] Oral 236 / 236 Output: Urine 900 / 2875 400 / 2875 Emesis 100 / 975 Lab Results 05/09/22 05/09/22 05/09/22 Range/Units 14:34 14:34 14:39 WBC 19.71 H (4.8-10.8) K/ul RBC 6.14 H (4.20-5.40) M/uL Hgb 18.8 H (12.0-16.0) g/dl Hct 49.7 H (37.0-47.0) % MCV 80.9 (80.0-100.0) fL MCH 30.6 (25.0-34.0) pg MCHC 37.8 H (32.0-36.0) g/dL RDW Std Deviation 35.5 L (36.4-46.3) fL RDW Coeff of Derik 12.2 (11.5-14.5) % Plt Count 516 H (130-400) K/uL MPV 10.5 (9.4-12.4) fL Immature Gran % (Auto) 0.4 % Neut % (Auto) 78.1 % Lymph % (Auto) 12.6 % Garrard % (Auto) 8.6 % Eos % (Auto) 0.1 % Baso % (Auto) 0.2 % Neut # (Auto) 15.41 H (1.40-6.50) K/uL Lymph # (Auto) 2.48 (1.2-3.4) K/uL Garrard # (Auto) 1.69 H (0.11-0.59) K/uL Eos # (Auto) 0.02 (0-0.50) K/uL Baso # (Auto) 0.03 (0-0.2) K/uL Immature Gran # (Auto) 0.08 (0.01-0.20) K/uL Absolute Nucleated RBC Nucleated RBC % (auto) Neutrophils % (Manual) Band Neutrophils % Lymphocytes % (Manual) Prolymphocyte % Reactive Lymphs % (Man) Monocytes % (Manual) Eosinophils % (Manual) Basophils % (Manual) Metamyelocytes % (Man) Myelocytes % (Man) Promyelocytes % (Man) Blast Cells % (Manual) Plasma Cell % (Manual) Other Cells % Nucleated RBC % Neutrophils # (Manual) Band Neutrophils # Total Absolute Neuts Lymphocytes # (Manual) Prolymphocyte # Reactive Lymphs # Total Abs Lymphocytes Monocytes # (Manual) Eosinophils # (Manual) Basophils # (Manual) Metamyelocytes # (Man) Myelocytes # (Manual) Promyelocytes # (Man) Blast Cells # (Man) Plasma Cell # (Manual) Other Cells # Nucleated RBCs # (Man) Hypersegmented Neuts Hyposegmented Neuts Hypogranular Neuts Large Granular Lymphs # Lrg Granular Lymphs Hairy Cells Smudge Cells Toxic Granulation Toxic Vacuolation Dohle Bodies Ilir Rods Platelet Estimate Hypogranular Platelets Clumped Platelets Giant Platelets Platelet Satelliting RBC Morphology Polychromasia Hypochromasia Poikilocytosis Basophilic Stippling Anisocytosis Microcytosis Macrocytosis Spherocytes Pappenheimer Bodies Sickle Cells Target Cells Tear Drop Cells Ovalocytes Stomatocytes Olivares-Vesper Bodies Echinocytes Acanthocytes (Spur) Rouleaux RBC Agglutinates Schistocytes Sezary Cell PT (9.0-12.0) Seconds INR (0.9-1.1) Sodium 138 (136-145) mmol/L Potassium 2.9 L (3.5-5.1) mmol/L Chloride 91 L (98-107) mmol/L Carbon Dioxide 33 H (21-32) mmol/L Anion Gap 14 H (3-11) BUN 15 (6-23) mg/dl Creatinine 0.82 (0.6-1.2) mg/dl Est Cr Clr Drug Dosing 109.5 ml/min Est GFR ( Amer) 112.1 ml/min Est GFR (Non-Af Amer) 96.7 ml/min BUN/Creatinine Ratio 18.3 (10-20) Glucose 91 (70-99(Fasting)) mg/dl Calcium 10.2 H (8.5-10.1) mg/dl Total Bilirubin 6.9 H (0.2-1.0) mg/dl Direct Bilirubin 2.7 H (0-0.2) mg/dl AST 545 H (13-39) U/L ALT 1481 H (7-52) U/L Alkaline Phosphatase 62 (34-104) U/L C-Reactive Protein 2.23 H (0-0.5) mg/dl Total Protein 8.7 H (6.0-8.3) gm/dl Albumin 4.7 (3.4-5.0) gm/dl Globulin 4.0 (2.5-4.0) gm/dl Albumin/Globulin Ratio 1.2 (0.9-2) Ceruloplasmin (18-53) mg/dL Lipase 18 (11-82) U/L TSH (0.300-4.500) uIu/ml Free T4 (0.61-1.60) ng/dl HCG, Quant mIU/ml Urine Color Urine Appearance (Clear) Urine pH (4.5-7.5) Ur Specific [place] (1.000-1.030) Urine Protein (Negative) Urine Glucose (UA) (Negative) Urine Ketones (Negative) Urine Blood (Negative) Urine Nitrite (Negative) Urine Bilirubin (Negative) Urine Urobilinogen (Negative) Ur Leukocyte Esterase (Negative) Urine RBC (0-4) /hpf Urine WBC (0-5) /hpf Ur Epithelial Cells (0-5) /lpf Urine Bacteria (Negative) Urine Mucus (None Prsent) Urine Opiates Screen (Neg) Ur Methadone, Qual (Neg) Acetaminophen (10-30) ug/ml Urine Barbiturates (Neg) Ur Phencyclidine (PCP) (Neg) U Amphetamin/Meth Scrn (Neg) MDMA (Ecstasy) Screen (Neg) U Benzodiazepines Scrn (Neg) Ur Cocaine Metabolite (Neg) U Marijuana (THC) Screen (Neg) IgG (635-1741) mg/dl NATHALIE Screen (NEGATIVE) Anti-Smooth Muscle Ab (NEGATIVE) Adenovirus (PCR) (NotDetected) Anaplasma Smear See Comment Babesia Smear See Comment B. pertussis DNA (PCR) (NotDetected) B.parapertussis DNA PCR (NotDetected) C. pneumoniae DNA (PCR) (NotDetected) Coronavirus OC43 (PCR) (NotDetected) Coronavirus HKU1 (PCR) (NotDetected) Coronavirus 229E (PCR) (NotDetected) SARS-CoV-2 (PCR) (NotDetected) Coronavirus NL63 (PCR) (NotDetected) Hepatitis A IgM Ab (NON-REACTIVE) Hep Bs Antigen (NON-REACTIVE) Hep Bs Ag Confirmation Hep B Core IgM Ab (NON-REACTIVE) Hepatitis C Ab (EIA) (NON-REACTIVE) Hep C Ab Signal/Cutoff (<1.00) Monoscreen (Negative) Human Metapneumovir PCR (NotDetected) Influenza Type A (PCR) (NotDetected) Influenza Type B (PCR) (NotDetected) M. pneumoniae (PCR) (NotDetected) Parainfluenza 1 (PCR) (NotDetected) Parainfluenza 2 (PCR) (NotDetected) Parainfluenza 3 (PCR) (NotDetected) Parainfluenza 4 (PCR) (NotDetected) RSV (PCR) (NotDetected) Entero/Rhino (PCR) (NotDetected) Blood Parasites ID 05/09/22 05/09/22 05/09/22 Range/Units 17:16 17:37 20:00 WBC (4.8-10.8) K/ul RBC (4.20-5.40) M/uL Hgb (12.0-16.0) g/dl Hct (37.0-47.0) % MCV (80.0-100.0) fL MCH (25.0-34.0) pg MCHC (32.0-36.0) g/dL RDW Std Deviation (36.4-46.3) fL RDW Coeff of Derik (11.5-14.5) % Plt Count (130-400) K/uL MPV (9.4-12.4) fL Immature Gran % (Auto) % Neut % (Auto) % Lymph % (Auto) % Garrard % (Auto) % Eos % (Auto) % Baso % (Auto) % Neut # (Auto) (1.40-6.50) K/uL Lymph # (Auto) (1.2-3.4) K/uL Garrard # (Auto) (0.11-0.59) K/uL Eos # (Auto) (0-0.50) K/uL Baso # (Auto) (0-0.2) K/uL Immature Gran # (Auto) (0.01-0.20) K/uL Absolute Nucleated RBC Nucleated RBC % (auto) Neutrophils % (Manual) Band Neutrophils % Lymphocytes % (Manual) Prolymphocyte % Reactive Lymphs % (Man) Monocytes % (Manual) Eosinophils % (Manual) Basophils % (Manual) Metamyelocytes % (Man) Myelocytes % (Man) Promyelocytes % (Man) Blast Cells % (Manual) Plasma Cell % (Manual) Other Cells % Nucleated RBC % Neutrophils # (Manual) Band Neutrophils # Total Absolute Neuts Lymphocytes # (Manual) Prolymphocyte # Reactive Lymphs # Total Abs Lymphocytes Monocytes # (Manual) Eosinophils # (Manual) Basophils # (Manual) Metamyelocytes # (Man) Myelocytes # (Manual) Promyelocytes # (Man) Blast Cells # (Man) Plasma Cell # (Manual) Other Cells # Nucleated RBCs # (Man) Hypersegmented Neuts Hyposegmented Neuts Hypogranular Neuts Large Granular Lymphs # Lrg Granular Lymphs Hairy Cells Smudge Cells Toxic Granulation Toxic Vacuolation Dohle Bodies Ilir Rods Platelet Estimate Hypogranular Platelets Clumped Platelets Giant Platelets Platelet Satelliting RBC Morphology Polychromasia Hypochromasia Poikilocytosis Basophilic Stippling Anisocytosis Microcytosis Macrocytosis Spherocytes Pappenheimer Bodies Sickle Cells Target Cells Tear Drop Cells Ovalocytes Stomatocytes Olivares-Vesper Bodies Echinocytes Acanthocytes (Spur) Rouleaux RBC Agglutinates Schistocytes Sezary Cell PT (9.0-12.0) Seconds INR (0.9-1.1) Sodium (136-145) mmol/L Potassium (3.5-5.1) mmol/L Chloride (98-107) mmol/L Carbon Dioxide (21-32) mmol/L Anion Gap (3-11) BUN (6-23) mg/dl Creatinine (0.6-1.2) mg/dl Est Cr Clr Drug Dosing ml/min Est GFR ( Amer) ml/min Est GFR (Non-Af Amer) ml/min BUN/Creatinine Ratio (10-20) Glucose (70-99(Fasting)) mg/dl Calcium (8.5-10.1) mg/dl Total Bilirubin (0.2-1.0) mg/dl Direct Bilirubin (0-0.2) mg/dl AST (13-39) U/L ALT (7-52) U/L Alkaline Phosphatase (34-104) U/L C-Reactive Protein (0-0.5) mg/dl Total Protein (6.0-8.3) gm/dl Albumin (3.4-5.0) gm/dl Globulin (2.5-4.0) gm/dl Albumin/Globulin Ratio (0.9-2) Ceruloplasmin (18-53) mg/dL Lipase (11-82) U/L TSH (0.300-4.500) uIu/ml Free T4 (0.61-1.60) ng/dl HCG, Quant [id number] mIU/ml Urine Color Urine Appearance (Clear) Urine pH (4.5-7.5) Ur Specific [place] (1.000-1.030) Urine Protein (Negative) Urine Glucose (UA) (Negative) Urine Ketones (Negative) Urine Blood (Negative) Urine Nitrite (Negative) Urine Bilirubin (Negative) Urine Urobilinogen (Negative) Ur Leukocyte Esterase (Negative) Urine RBC (0-4) /hpf Urine WBC (0-5) /hpf Ur Epithelial Cells (0-5) /lpf Urine Bacteria (Negative) Urine Mucus (None Prsent) Urine Opiates Screen (Neg) Ur Methadone, Qual (Neg) Acetaminophen (10-30) ug/ml Urine Barbiturates (Neg) Ur Phencyclidine (PCP) (Neg) U Amphetamin/Meth Scrn (Neg) MDMA (Ecstasy) Screen (Neg) U Benzodiazepines Scrn (Neg) Ur Cocaine Metabolite (Neg) U Marijuana (THC) Screen (Neg) IgG ([id number]) mg/dl NATHALIE Screen (NEGATIVE) Anti-Smooth Muscle Ab (NEGATIVE) Adenovirus (PCR) Not Detected (NotDetected) Anaplasma Smear Babesia Smear B. pertussis DNA (PCR) Not Detected (NotDetected) B.parapertussis DNA PCR Not Detected (NotDetected) C. pneumoniae DNA (PCR) Not Detected (NotDetected) Coronavirus OC43 (PCR) Not Detected (NotDetected) Coronavirus HKU1 (PCR) Not Detected (NotDetected) Coronavirus 229E (PCR) Not Detected (NotDetected) SARS-CoV-2 (PCR) Not Detected (NotDetected) Coronavirus NL63 (PCR) Not Detected (NotDetected) Hepatitis A IgM Ab NON-REACTIVE (NON-REACTIVE) Hep Bs Antigen NON-REACTIVE (NON-REACTIVE) Hep Bs Ag Confirmation TNP Hep B Core IgM Ab NON-REACTIVE (NON-REACTIVE) Hepatitis C Ab (EIA) NON-REACTIVE (NON-REACTIVE) Hep C Ab Signal/Cutoff 0.05 (<1.00) Monoscreen (Negative) Human Metapneumovir PCR Not Detected (NotDetected) Influenza Type A (PCR) Not Detected (NotDetected) Influenza Type B (PCR) Not Detected (NotDetected) M. pneumoniae (PCR) Not Detected (NotDetected) Parainfluenza 1 (PCR) Not Detected (NotDetected) Parainfluenza 2 (PCR) Not Detected (NotDetected) Parainfluenza 3 (PCR) Not Detected (NotDetected) Parainfluenza 4 (PCR) Not Detected (NotDetected) RSV (PCR) Not Detected (NotDetected) Entero/Rhino (PCR) Not Detected (NotDetected) Blood Parasites ID 05/09/22 05/09/22 05/09/22 Range/Units 20:00 20:00 21:11 WBC (4.8-10.8) K/ul RBC (4.20-5.40) M/uL Hgb (12.0-16.0) g/dl Hct (37.0-47.0) % MCV (80.0-100.0) fL MCH (25.0-34.0) pg MCHC (32.0-36.0) g/dL RDW Std Deviation (36.4-46.3) fL RDW Coeff of Derik (11.5-14.5) % Plt Count (130-400) K/uL MPV (9.4-12.4) fL Immature Gran % (Auto) % Neut % (Auto) % Lymph % (Auto) % Garrard % (Auto) % Eos % (Auto) % Baso % (Auto) % Neut # (Auto) (1.40-6.50) K/uL Lymph # (Auto) (1.2-3.4) K/uL Garrard # (Auto) (0.11-0.59) K/uL Eos # (Auto) (0-0.50) K/uL Baso # (Auto) (0-0.2) K/uL Immature Gran # (Auto) (0.01-0.20) K/uL Absolute Nucleated RBC Nucleated RBC % (auto) Neutrophils % (Manual) Band Neutrophils % Lymphocytes % (Manual) Prolymphocyte % Reactive Lymphs % (Man) Monocytes % (Manual) Eosinophils % (Manual) Basophils % (Manual) Metamyelocytes % (Man) Myelocytes % (Man) Promyelocytes % (Man) Blast Cells % (Manual) Plasma Cell % (Manual) Other Cells % Nucleated RBC % Neutrophils # (Manual) Band Neutrophils # Total Absolute Neuts Lymphocytes # (Manual) Prolymphocyte # Reactive Lymphs # Total Abs Lymphocytes Monocytes # (Manual) Eosinophils # (Manual) Basophils # (Manual) Metamyelocytes # (Man) Myelocytes # (Manual) Promyelocytes # (Man) Blast Cells # (Man) Plasma Cell # (Manual) Other Cells # Nucleated RBCs # (Man) Hypersegmented Neuts Hyposegmented Neuts Hypogranular Neuts Large Granular Lymphs # Lrg Granular Lymphs Hairy Cells Smudge Cells Toxic Granulation Toxic Vacuolation Dohle Bodies Ilir Rods Platelet Estimate Hypogranular Platelets Clumped Platelets Giant Platelets Platelet Satelliting RBC Morphology Polychromasia Hypochromasia Poikilocytosis Basophilic Stippling Anisocytosis Microcytosis Macrocytosis Spherocytes Pappenheimer Bodies Sickle Cells Target Cells Tear Drop Cells Ovalocytes Stomatocytes Olivares-Vesper Bodies Echinocytes Acanthocytes (Spur) Rouleaux RBC Agglutinates Schistocytes Sezary Cell PT 11.9 (9.0-12.0) Seconds INR 1.1 (0.9-1.1) Sodium (136-145) mmol/L Potassium (3.5-5.1) mmol/L Chloride (98-107) mmol/L Carbon Dioxide (21-32) mmol/L Anion Gap (3-11) BUN (6-23) mg/dl Creatinine (0.6-1.2) mg/dl Est Cr Clr Drug Dosing ml/min Est GFR ( Amer) ml/min Est GFR (Non-Af Amer) ml/min BUN/Creatinine Ratio (10-20) Glucose (70-99(Fasting)) mg/dl Calcium (8.5-10.1) mg/dl Total Bilirubin (0.2-1.0) mg/dl Direct Bilirubin (0-0.2) mg/dl AST (13-39) U/L ALT (7-52) U/L Alkaline Phosphatase (34-104) U/L C-Reactive Protein (0-0.5) mg/dl Total Protein (6.0-8.3) gm/dl Albumin (3.4-5.0) gm/dl Globulin (2.5-4.0) gm/dl Albumin/Globulin Ratio (0.9-2) Ceruloplasmin (18-53) mg/dL Lipase (11-82) U/L TSH 0.033 L (0.300-4.500) uIu/ml Free T4 1.95 H (0.61-1.60) ng/dl HCG, Quant mIU/ml Urine Color Urine Appearance (Clear) Urine pH (4.5-7.5) Ur Specific [place] (1.000-1.030) Urine Protein (Negative) Urine Glucose (UA) (Negative) Urine Ketones (Negative) Urine Blood (Negative) Urine Nitrite (Negative) Urine Bilirubin (Negative) Urine Urobilinogen (Negative) Ur Leukocyte Esterase (Negative) Urine RBC (0-4) /hpf Urine WBC (0-5) /hpf Ur Epithelial Cells (0-5) /lpf Urine Bacteria (Negative) Urine Mucus (None Prsent) Urine Opiates Screen (Neg) Ur Methadone, Qual (Neg) Acetaminophen (10-30) ug/ml Urine Barbiturates (Neg) Ur Phencyclidine (PCP) (Neg) U Amphetamin/Meth Scrn (Neg) MDMA (Ecstasy) Screen (Neg) U Benzodiazepines Scrn (Neg) Ur Cocaine Metabolite (Neg) U Marijuana (THC) Screen (Neg) IgG (635-1741) mg/dl NATHALIE Screen (NEGATIVE) Anti-Smooth Muscle Ab (NEGATIVE) Adenovirus (PCR) (NotDetected) Anaplasma Smear Babesia Smear B. pertussis DNA (PCR) (NotDetected) B.parapertussis DNA PCR (NotDetected) C. pneumoniae DNA (PCR) (NotDetected) Coronavirus OC43 (PCR) (NotDetected) Coronavirus HKU1 (PCR) (NotDetected) Coronavirus 229E (PCR) (NotDetected) SARS-CoV-2 (PCR) (NotDetected) Coronavirus NL63 (PCR) (NotDetected) Hepatitis A IgM Ab (NON-REACTIVE) Hep Bs Antigen (NON-REACTIVE) Hep Bs Ag Confirmation Hep B Core IgM Ab (NON-REACTIVE) Hepatitis C Ab (EIA) (NON-REACTIVE) Hep C Ab Signal/Cutoff (<1.00) Monoscreen Negative (Negative) Human Metapneumovir PCR (NotDetected) Influenza Type A (PCR) (NotDetected) Influenza Type B (PCR) (NotDetected) M. pneumoniae (PCR) (NotDetected) Parainfluenza 1 (PCR) (NotDetected) Parainfluenza 2 (PCR) (NotDetected) Parainfluenza 3 (PCR) (NotDetected) Parainfluenza 4 (PCR) (NotDetected) RSV (PCR) (NotDetected) Entero/Rhino (PCR) (NotDetected) Blood Parasites ID 05/09/22 05/09/22 05/10/22 Range/Units 21:11 23:19 00:48 WBC (4.8-10.8) K/ul RBC (4.20-5.40) M/uL Hgb (12.0-16.0) g/dl Hct (37.0-47.0) % MCV (80.0-100.0) fL MCH (25.0-34.0) pg MCHC (32.0-36.0) g/dL RDW Std Deviation (36.4-46.3) fL RDW Coeff of Derik (11.5-14.5) % Plt Count (130-400) K/uL MPV (9.4-12.4) fL Immature Gran % (Auto) % Neut % (Auto) % Lymph % (Auto) % Garrard % (Auto) % Eos % (Auto) % Baso % (Auto) % Neut # (Auto) (1.40-6.50) K/uL Lymph # (Auto) (1.2-3.4) K/uL Garrard # (Auto) (0.11-0.59) K/uL Eos # (Auto) (0-0.50) K/uL Baso # (Auto) (0-0.2) K/uL Immature Gran # (Auto) (0.01-0.20) K/uL Absolute Nucleated RBC Nucleated RBC % (auto) Neutrophils % (Manual) Band Neutrophils % Lymphocytes % (Manual) Prolymphocyte % Reactive Lymphs % (Man) Monocytes % (Manual) Eosinophils % (Manual) Basophils % (Manual) Metamyelocytes % (Man) Myelocytes % (Man) Promyelocytes % (Man) Blast Cells % (Manual) Plasma Cell % (Manual) Other Cells % Nucleated RBC % Neutrophils # (Manual) Band Neutrophils # Total Absolute Neuts Lymphocytes # (Manual) Prolymphocyte # Reactive Lymphs # Total Abs Lymphocytes Monocytes # (Manual) Eosinophils # (Manual) Basophils # (Manual) Metamyelocytes # (Man) Myelocytes # (Manual) Promyelocytes # (Man) Blast Cells # (Man) Plasma Cell # (Manual) Other Cells # Nucleated RBCs # (Man) Hypersegmented Neuts Hyposegmented Neuts Hypogranular Neuts Large Granular Lymphs # Lrg Granular Lymphs Hairy Cells Smudge Cells Toxic Granulation Toxic Vacuolation Dohle Bodies Ilir Rods Platelet Estimate Hypogranular Platelets Clumped Platelets Giant Platelets Platelet Satelliting RBC Morphology Polychromasia Hypochromasia Poikilocytosis Basophilic Stippling Anisocytosis Microcytosis Macrocytosis Spherocytes Pappenheimer Bodies Sickle Cells Target Cells Tear Drop Cells Ovalocytes Stomatocytes Olivares-Vesper Bodies Echinocytes Acanthocytes (Spur) Rouleaux RBC Agglutinates Schistocytes Sezary Cell PT (9.0-12.0) Seconds INR (0.9-1.1) Sodium (136-145) mmol/L Potassium (3.5-5.1) mmol/L Chloride (98-107) mmol/L Carbon Dioxide (21-32) mmol/L Anion Gap (3-11) BUN (6-23) mg/dl Creatinine (0.6-1.2) mg/dl Est Cr Clr Drug Dosing ml/min Est GFR ( Amer) ml/min Est GFR (Non-Af Amer) ml/min BUN/Creatinine Ratio (10-20) Glucose (70-99(Fasting)) mg/dl Calcium (8.5-10.1) mg/dl Total Bilirubin (0.2-1.0) mg/dl Direct Bilirubin (0-0.2) mg/dl AST (13-39) U/L ALT (7-52) U/L Alkaline Phosphatase (34-104) U/L C-Reactive Protein (0-0.5) mg/dl Total Protein (6.0-8.3) gm/dl Albumin (3.4-5.0) gm/dl Globulin (2.5-4.0) gm/dl Albumin/Globulin Ratio (0.9-2) Ceruloplasmin (18-53) mg/dL Lipase (11-82) U/L TSH (0.300-4.500) uIu/ml Free T4 (0.61-1.60) ng/dl HCG, Quant mIU/ml Urine Color Lambert Urine Appearance Cloudy A (Clear) Urine pH (4.5-7.5) Ur Specific [place] 1.024 (1.000-1.030) Urine Protein (Negative) Urine Glucose (UA) (Negative) Urine Ketones (Negative) Urine Blood (Negative) Urine Nitrite (Negative) Urine Bilirubin (Negative) Urine Urobilinogen (Negative) Ur Leukocyte Esterase (Negative) Urine RBC 0-4 (0-4) /hpf Urine WBC 5-10 H (0-5) /hpf Ur Epithelial Cells >30 H (0-5) /lpf Urine Bacteria 2+ H (Negative) Urine Mucus Present A (None Prsent) Urine Opiates Screen Neg (Neg) Ur Methadone, Qual Neg (Neg) Acetaminophen < 3 L (10-30) ug/ml Urine Barbiturates Neg (Neg) Ur Phencyclidine (PCP) Neg (Neg) U Amphetamin/Meth Scrn Neg (Neg) MDMA (Ecstasy) Screen Neg (Neg) U Benzodiazepines Scrn Pos H (Neg) Ur Cocaine Metabolite Neg (Neg) U Marijuana (THC) Screen Pos H (Neg) IgG (635-1741) mg/dl NATHALIE Screen (NEGATIVE) Anti-Smooth Muscle Ab (NEGATIVE) Adenovirus (PCR) (NotDetected) Anaplasma Smear Babesia Smear B. pertussis DNA (PCR) (NotDetected) B.parapertussis DNA PCR (NotDetected) C. pneumoniae DNA (PCR) (NotDetected) Coronavirus OC43 (PCR) (NotDetected) Coronavirus HKU1 (PCR) (NotDetected) Coronavirus 229E (PCR) (NotDetected) SARS-CoV-2 (PCR) (NotDetected) Coronavirus NL63 (PCR) (NotDetected) Hepatitis A IgM Ab (NON-REACTIVE) Hep Bs Antigen (NON-REACTIVE) Hep Bs Ag Confirmation Hep B Core IgM Ab (NON-REACTIVE) Hepatitis C Ab (EIA) (NON-REACTIVE) Hep C Ab Signal/Cutoff (<1.00) Monoscreen (Negative) Human Metapneumovir PCR (NotDetected) Influenza Type A (PCR) (NotDetected) Influenza Type B (PCR) (NotDetected) M. pneumoniae (PCR) (NotDetected) Parainfluenza 1 (PCR) (NotDetected) Parainfluenza 2 (PCR) (NotDetected) Parainfluenza 3 (PCR) (NotDetected) Parainfluenza 4 (PCR) (NotDetected) RSV (PCR) (NotDetected) Entero/Rhino (PCR) (NotDetected) Blood Parasites ID 05/10/22 05/10/22 05/10/22 Range/Units 05:47 05:47 05:47 WBC Cancelled (4.8-10.8) K/ul RBC Cancelled (4.20-5.40) M/uL Hgb Cancelled (12.0-16.0) g/dl Hct Cancelled (37.0-47.0) % MCV Cancelled (80.0-100.0) fL MCH Cancelled (25.0-34.0) pg MCHC Cancelled (32.0-36.0) g/dL RDW Std Deviation Cancelled (36.4-46.3) fL RDW Coeff of Derik Cancelled (11.5-14.5) % Plt Count Cancelled (130-400) K/uL MPV Cancelled (9.4-12.4) fL Immature Gran % (Auto) Cancelled % Neut % (Auto) Cancelled % Lymph % (Auto) Cancelled % Garrard % (Auto) Cancelled % Eos % (Auto) Cancelled % Baso % (Auto) Cancelled % Neut # (Auto) Cancelled (1.40-6.50) K/uL Lymph # (Auto) Cancelled (1.2-3.4) K/uL Garrard # (Auto) Cancelled (0.11-0.59) K/uL Eos # (Auto) Cancelled (0-0.50) K/uL Baso # (Auto) Cancelled (0-0.2) K/uL Immature Gran # (Auto) Cancelled (0.01-0.20) K/uL Absolute Nucleated RBC Cancelled Nucleated RBC % (auto) Cancelled Neutrophils % (Manual) Cancelled Band Neutrophils % Cancelled Lymphocytes % (Manual) Cancelled Prolymphocyte % Cancelled Reactive Lymphs % (Man) Cancelled Monocytes % (Manual) Cancelled Eosinophils % (Manual) Cancelled Basophils % (Manual) Cancelled Metamyelocytes % (Man) Cancelled Myelocytes % (Man) Cancelled Promyelocytes % (Man) Cancelled Blast Cells % (Manual) Cancelled Plasma Cell % (Manual) Cancelled Other Cells % Cancelled Nucleated RBC % Cancelled Neutrophils # (Manual) Cancelled Band Neutrophils # Cancelled Total Absolute Neuts Cancelled Lymphocytes # (Manual) Cancelled Prolymphocyte # Cancelled Reactive Lymphs # Cancelled Total Abs Lymphocytes Cancelled Monocytes # (Manual) Cancelled Eosinophils # (Manual) Cancelled Basophils # (Manual) Cancelled Metamyelocytes # (Man) Cancelled Myelocytes # (Manual) Cancelled Promyelocytes # (Man) Cancelled Blast Cells # (Man) Cancelled Plasma Cell # (Manual) Cancelled Other Cells # Cancelled Nucleated RBCs # (Man) Cancelled Hypersegmented Neuts Cancelled Hyposegmented Neuts Cancelled Hypogranular Neuts Cancelled Large Granular Lymphs Cancelled # Lrg Granular Lymphs Cancelled Hairy Cells Cancelled Smudge Cells Cancelled Toxic Granulation Cancelled Toxic Vacuolation Cancelled Dohle Bodies Cancelled Ilir Rods Cancelled Platelet Estimate Cancelled Hypogranular Platelets Cancelled Clumped Platelets Cancelled Giant Platelets Cancelled Platelet Satelliting Cancelled RBC Morphology Cancelled Polychromasia Cancelled Hypochromasia Cancelled Poikilocytosis Cancelled Basophilic Stippling Cancelled Anisocytosis Cancelled Microcytosis Cancelled Macrocytosis Cancelled Spherocytes Cancelled Pappenheimer Bodies Cancelled Sickle Cells Cancelled Target Cells Cancelled Tear Drop Cells Cancelled Ovalocytes Cancelled Stomatocytes Cancelled Olivares-Vesper Bodies Cancelled Echinocytes Cancelled Acanthocytes (Spur) Cancelled Rouleaux Cancelled RBC Agglutinates Cancelled Schistocytes Cancelled Sezary Cell Cancelled PT (9.0-12.0) Seconds INR (0.9-1.1) Sodium 140 (136-145) mmol/L Potassium 2.9 L (3.5-5.1) mmol/L Chloride 101 (98-107) mmol/L Carbon Dioxide 29 (21-32) mmol/L Anion Gap 10 (3-11) BUN 12 (6-23) mg/dl Creatinine 0.57 L (0.6-1.2) mg/dl Est Cr Clr Drug Dosing 159.2 ml/min Est GFR ( Amer) 145.2 ml/min Est GFR (Non-Af Amer) 125.3 ml/min BUN/Creatinine Ratio 21.1 H (10-20) Glucose 94 (70-99(Fasting)) mg/dl Calcium 8.8 (8.5-10.1) mg/dl Total Bilirubin 6.3 H (0.2-1.0) mg/dl Direct Bilirubin (0-0.2) mg/dl AST 419 H (13-39) U/L ALT 1264 H (7-52) U/L Alkaline Phosphatase 49 (34-104) U/L C-Reactive Protein (0-0.5) mg/dl Total Protein 6.5 D (6.0-8.3) gm/dl Albumin 3.6 (3.4-5.0) gm/dl Globulin 2.9 (2.5-4.0) gm/dl Albumin/Globulin Ratio 1.2 (0.9-2) Ceruloplasmin 46 (18-53) mg/dL Lipase (11-82) U/L TSH (0.300-4.500) uIu/ml Free T4 (0.61-1.60) ng/dl HCG, Quant mIU/ml Urine Color Urine Appearance (Clear) Urine pH (4.5-7.5) Ur Specific [place] (1.000-1.030) Urine Protein (Negative) Urine Glucose (UA) (Negative) Urine Ketones (Negative) Urine Blood (Negative) Urine Nitrite (Negative) Urine Bilirubin (Negative) Urine Urobilinogen (Negative) Ur Leukocyte Esterase (Negative) Urine RBC (0-4) /hpf Urine WBC (0-5) /hpf Ur Epithelial Cells (0-5) /lpf Urine Bacteria (Negative) Urine Mucus (None Prsent) Urine Opiates Screen (Neg) Ur Methadone, Qual (Neg) Acetaminophen (10-30) ug/ml Urine Barbiturates (Neg) Ur Phencyclidine (PCP) (Neg) U Amphetamin/Meth Scrn (Neg) MDMA (Ecstasy) Screen (Neg) U Benzodiazepines Scrn (Neg) Ur Cocaine Metabolite (Neg) U Marijuana (THC) Screen (Neg) IgG (635-1741) mg/dl NATHALIE Screen NEGATIVE (NEGATIVE) Anti-Smooth Muscle Ab NEGATIVE (NEGATIVE) Adenovirus (PCR) (NotDetected) Anaplasma Smear Babesia Smear B. pertussis DNA (PCR) (NotDetected) B.parapertussis DNA PCR (NotDetected) C. pneumoniae DNA (PCR) (NotDetected) Coronavirus OC43 (PCR) (NotDetected) Coronavirus HKU1 (PCR) (NotDetected) Coronavirus 229E (PCR) (NotDetected) SARS-CoV-2 (PCR) (NotDetected) Coronavirus NL63 (PCR) (NotDetected) Hepatitis A IgM Ab (NON-REACTIVE) Hep Bs Antigen (NON-REACTIVE) Hep Bs Ag Confirmation Hep B Core IgM Ab (NON-REACTIVE) Hepatitis C Ab (EIA) (NON-REACTIVE) Hep C Ab Signal/Cutoff (<1.00) Monoscreen (Negative) Human Metapneumovir PCR (NotDetected) Influenza Type A (PCR) (NotDetected) Influenza Type B (PCR) (NotDetected) M. pneumoniae (PCR) (NotDetected) Parainfluenza 1 (PCR) (NotDetected) Parainfluenza 2 (PCR) (NotDetected) Parainfluenza 3 (PCR) (NotDetected) Parainfluenza 4 (PCR) (NotDetected) RSV (PCR) (NotDetected) Entero/Rhino (PCR) (NotDetected) Blood Parasites ID Cancelled 05/10/22 05/10/22 05/11/22 Range/Units 07:26 10:05 07:54 WBC 13.85 H 11.32 H (4.8-10.8) K/ul RBC 4.94 4.22 (4.20-5.40) M/uL Hgb 14.7 D 13.0 (12.0-16.0) g/dl Hct 41.5 36.0 L (37.0-47.0) % MCV 84.0 85.3 (80.0-100.0) fL MCH 29.8 30.8 (25.0-34.0) pg MCHC 35.4 36.1 H (32.0-36.0) g/dL RDW Std Deviation 37.1 38.7 (36.4-46.3) fL RDW Coeff of Derik 12.3 12.6 (11.5-14.5) % Plt Count 343 258 (130-400) K/uL MPV 10.6 10.9 (9.4-12.4) fL Immature Gran % (Auto) 0.4 0.4 % Neut % (Auto) 74.7 66.3 % Lymph % (Auto) 15.5 25.3 % Garrard % (Auto) 9.1 6.4 % Eos % (Auto) 0.2 1.4 % Baso % (Auto) 0.1 0.2 % Neut # (Auto) 10.36 H 7.51 H (1.40-6.50) K/uL Lymph # (Auto) 2.14 2.86 (1.2-3.4) K/uL Garrard # (Auto) 1.26 H 0.72 H (0.11-0.59) K/uL Eos # (Auto) 0.03 0.16 (0-0.50) K/uL Baso # (Auto) 0.01 0.02 (0-0.2) K/uL Immature Gran # (Auto) 0.05 0.05 (0.01-0.20) K/uL Absolute Nucleated RBC Nucleated RBC % (auto) Neutrophils % (Manual) Band Neutrophils % Lymphocytes % (Manual) Prolymphocyte % Reactive Lymphs % (Man) Monocytes % (Manual) Eosinophils % (Manual) Basophils % (Manual) Metamyelocytes % (Man) Myelocytes % (Man) Promyelocytes % (Man) Blast Cells % (Manual) Plasma Cell % (Manual) Other Cells % Nucleated RBC % Neutrophils # (Manual) Band Neutrophils # Total Absolute Neuts Lymphocytes # (Manual) Prolymphocyte # Reactive Lymphs # Total Abs Lymphocytes Monocytes # (Manual) Eosinophils # (Manual) Basophils # (Manual) Metamyelocytes # (Man) Myelocytes # (Manual) Promyelocytes # (Man) Blast Cells # (Man) Plasma Cell # (Manual) Other Cells # Nucleated RBCs # (Man) Hypersegmented Neuts Hyposegmented Neuts Hypogranular Neuts Large Granular Lymphs # Lrg Granular Lymphs Hairy Cells Smudge Cells Toxic Granulation Toxic Vacuolation Dohle Bodies Ilir Rods Platelet Estimate Hypogranular Platelets Clumped Platelets Giant Platelets Platelet Satelliting RBC Morphology Polychromasia Hypochromasia Poikilocytosis Basophilic Stippling Anisocytosis Microcytosis Macrocytosis Spherocytes Pappenheimer Bodies Sickle Cells Target Cells Tear Drop Cells Ovalocytes Stomatocytes Olivares-Vesper Bodies Echinocytes Acanthocytes (Spur) Rouleaux RBC Agglutinates Schistocytes Sezary Cell PT (9.0-12.0) Seconds INR (0.9-1.1) Sodium (136-145) mmol/L Potassium (3.5-5.1) mmol/L Chloride (98-107) mmol/L Carbon Dioxide (21-32) mmol/L Anion Gap (3-11) BUN (6-23) mg/dl Creatinine (0.6-1.2) mg/dl Est Cr Clr Drug Dosing ml/min Est GFR ( Amer) ml/min Est GFR (Non-Af Amer) ml/min BUN/Creatinine Ratio (10-20) Glucose (70-99(Fasting)) mg/dl Calcium (8.5-10.1) mg/dl Total Bilirubin (0.2-1.0) mg/dl Direct Bilirubin (0-0.2) mg/dl AST (13-39) U/L ALT (7-52) U/L Alkaline Phosphatase (34-104) U/L C-Reactive Protein (0-0.5) mg/dl Total Protein (6.0-8.3) gm/dl Albumin (3.4-5.0) gm/dl Globulin (2.5-4.0) gm/dl Albumin/Globulin Ratio (0.9-2) Ceruloplasmin (18-53) mg/dL Lipase (11-82) U/L TSH (0.300-4.500) uIu/ml Free T4 (0.61-1.60) ng/dl HCG, Quant mIU/ml Urine Color Urine Appearance (Clear) Urine pH (4.5-7.5) Ur Specific [place] (1.000-1.030) Urine Protein (Negative) Urine Glucose (UA) (Negative) Urine Ketones (Negative) Urine Blood (Negative) Urine Nitrite (Negative) Urine Bilirubin (Negative) Urine Urobilinogen (Negative) Ur Leukocyte Esterase (Negative) Urine RBC (0-4) /hpf Urine WBC (0-5) /hpf Ur Epithelial Cells (0-5) /lpf Urine Bacteria (Negative) Urine Mucus (None Prsent) Urine Opiates Screen (Neg) Ur Methadone, Qual (Neg) Acetaminophen (10-30) ug/ml Urine Barbiturates (Neg) Ur Phencyclidine (PCP) (Neg) U Amphetamin/Meth Scrn (Neg) MDMA (Ecstasy) Screen (Neg) U Benzodiazepines Scrn (Neg) Ur Cocaine Metabolite (Neg) U Marijuana (THC) Screen (Neg) IgG 1104.6 ([id number]) mg/dl NATHALIE Screen (NEGATIVE) Anti-Smooth Muscle Ab (NEGATIVE) Adenovirus (PCR) (NotDetected) Anaplasma Smear Babesia Smear B. pertussis DNA (PCR) (NotDetected) B.parapertussis DNA PCR (NotDetected) C. pneumoniae DNA (PCR) (NotDetected) Coronavirus OC43 (PCR) (NotDetected) Coronavirus HKU1 (PCR) (NotDetected) Coronavirus 229E (PCR) (NotDetected) SARS-CoV-2 (PCR) (NotDetected) Coronavirus NL63 (PCR) (NotDetected) Hepatitis A IgM Ab (NON-REACTIVE) Hep Bs Antigen (NON-REACTIVE) Hep Bs Ag Confirmation Hep B Core IgM Ab (NON-REACTIVE) Hepatitis C Ab (EIA) (NON-REACTIVE) Hep C Ab Signal/Cutoff (<1.00) Monoscreen (Negative) Human Metapneumovir PCR (NotDetected) Influenza Type A (PCR) (NotDetected) Influenza Type B (PCR) (NotDetected) M. pneumoniae (PCR) (NotDetected) Parainfluenza 1 (PCR) (NotDetected) Parainfluenza 2 (PCR) (NotDetected) Parainfluenza 3 (PCR) (NotDetected) Parainfluenza 4 (PCR) (NotDetected) RSV (PCR) (NotDetected) Entero/Rhino (PCR) (NotDetected) Blood Parasites ID 05/11/22 05/11/22 05/12/22 Range/Units 07:54 07:54 06:00 WBC 14.28 H (4.8-10.8) K/ul RBC 4.67 (4.20-5.40) M/uL Hgb 14.2 (12.0-16.0) g/dl Hct 39.3 (37.0-47.0) % MCV 84.2 (80.0-100.0) fL MCH 30.4 (25.0-34.0) pg MCHC 36.1 H (32.0-36.0) g/dL RDW Std Deviation 36.4 (36.4-46.3) fL RDW Coeff of Derik 12.1 (11.5-14.5) % Plt Count 273 (130-400) K/uL MPV 10.5 (9.4-12.4) fL Immature Gran % (Auto) % Neut % (Auto) % Lymph % (Auto) % Garrard % (Auto) % Eos % (Auto) % Baso % (Auto) % Neut # (Auto) (1.40-6.50) K/uL Lymph # (Auto) (1.2-3.4) K/uL Garrard # (Auto) (0.11-0.59) K/uL Eos # (Auto) (0-0.50) K/uL Baso # (Auto) (0-0.2) K/uL Immature Gran # (Auto) (0.01-0.20) K/uL Absolute Nucleated RBC Nucleated RBC % (auto) Neutrophils % (Manual) Band Neutrophils % Lymphocytes % (Manual) Prolymphocyte % Reactive Lymphs % (Man) Monocytes % (Manual) Eosinophils % (Manual) Basophils % (Manual) Metamyelocytes % (Man) Myelocytes % (Man) Promyelocytes % (Man) Blast Cells % (Manual) Plasma Cell % (Manual) Other Cells % Nucleated RBC % Neutrophils # (Manual) Band Neutrophils # Total Absolute Neuts Lymphocytes # (Manual) Prolymphocyte # Reactive Lymphs # Total Abs Lymphocytes Monocytes # (Manual) Eosinophils # (Manual) Basophils # (Manual) Metamyelocytes # (Man) Myelocytes # (Manual) Promyelocytes # (Man) Blast Cells # (Man) Plasma Cell # (Manual) Other Cells # Nucleated RBCs # (Man) Hypersegmented Neuts Hyposegmented Neuts Hypogranular Neuts Large Granular Lymphs # Lrg Granular Lymphs Hairy Cells Smudge Cells Toxic Granulation Toxic Vacuolation Dohle Bodies Ilir Rods Platelet Estimate Hypogranular Platelets Clumped Platelets Giant Platelets Platelet Satelliting RBC Morphology Polychromasia Hypochromasia Poikilocytosis Basophilic Stippling Anisocytosis Microcytosis Macrocytosis Spherocytes Pappenheimer Bodies Sickle Cells Target Cells Tear Drop Cells Ovalocytes Stomatocytes Olivares-Vesper Bodies Echinocytes Acanthocytes (Spur) Rouleaux RBC Agglutinates Schistocytes Sezary Cell PT 11.7 (9.0-12.0) Seconds INR 1.1 (0.9-1.1) Sodium 138 (136-145) mmol/L Potassium 3.2 L (3.5-5.1) mmol/L Chloride 107 (98-107) mmol/L Carbon Dioxide 26 (21-32) mmol/L Anion Gap 5 (3-11) BUN 7 (6-23) mg/dl Creatinine 0.59 L (0.6-1.2) mg/dl Est Cr Clr Drug Dosing 153.8 ml/min Est GFR ( Amer) 143.6 ml/min Est GFR (Non-Af Amer) 123.9 ml/min BUN/Creatinine Ratio 11.9 (10-20) Glucose 91 (70-99(Fasting)) mg/dl Calcium 8.0 L (8.5-10.1) mg/dl Total Bilirubin 2.6 H D (0.2-1.0) mg/dl Direct Bilirubin (0-0.2) mg/dl AST 168 H (13-39) U/L ALT 778 H (7-52) U/L Alkaline Phosphatase 48 (34-104) U/L C-Reactive Protein (0-0.5) mg/dl Total Protein 5.4 L (6.0-8.3) gm/dl Albumin 3.0 L (3.4-5.0) gm/dl Globulin 2.4 L (2.5-4.0) gm/dl Albumin/Globulin Ratio 1.3 (0.9-2) Ceruloplasmin (18-53) mg/dL Lipase (11-82) U/L TSH (0.300-4.500) uIu/ml Free T4 (0.61-1.60) ng/dl HCG, Quant mIU/ml Urine Color Urine Appearance (Clear) Urine pH (4.5-7.5) Ur Specific [place] (1.000-1.030) Urine Protein (Negative) Urine Glucose (UA) (Negative) Urine Ketones (Negative) Urine Blood (Negative) Urine Nitrite (Negative) Urine Bilirubin (Negative) Urine Urobilinogen (Negative) Ur Leukocyte Esterase (Negative) Urine RBC (0-4) /hpf Urine WBC (0-5) /hpf Ur Epithelial Cells (0-5) /lpf Urine Bacteria (Negative) Urine Mucus (None Prsent) Urine Opiates Screen (Neg) Ur Methadone, Qual (Neg) Acetaminophen (10-30) ug/ml Urine Barbiturates (Neg) Ur Phencyclidine (PCP) (Neg) U Amphetamin/Meth Scrn (Neg) MDMA (Ecstasy) Screen (Neg) U Benzodiazepines Scrn (Neg) Ur Cocaine Metabolite (Neg) U Marijuana (THC) Screen (Neg) IgG ([id number]) mg/dl NATHALIE Screen (NEGATIVE) Anti-Smooth Muscle Ab (NEGATIVE) Adenovirus (PCR) (NotDetected) Anaplasma Smear Babesia Smear B. pertussis DNA (PCR) (NotDetected) B.parapertussis DNA PCR (NotDetected) C. pneumoniae DNA (PCR) (NotDetected) Coronavirus OC43 (PCR) (NotDetected) Coronavirus HKU1 (PCR) (NotDetected) Coronavirus 229E (PCR) (NotDetected) SARS-CoV-2 (PCR) (NotDetected) Coronavirus NL63 (PCR) (NotDetected) Hepatitis A IgM Ab (NON-REACTIVE) Hep Bs Antigen (NON-REACTIVE) Hep Bs Ag Confirmation Hep B Core IgM Ab (NON-REACTIVE) Hepatitis C Ab (EIA) (NON-REACTIVE) Hep C Ab Signal/Cutoff (<1.00) Monoscreen (Negative) Human Metapneumovir PCR (NotDetected) Influenza Type A (PCR) (NotDetected) Influenza Type B (PCR) (NotDetected) M. pneumoniae (PCR) (NotDetected) Parainfluenza 1 (PCR) (NotDetected) Parainfluenza 2 (PCR) (NotDetected) Parainfluenza 3 (PCR) (NotDetected) Parainfluenza 4 (PCR) (NotDetected) RSV (PCR) (NotDetected) Entero/Rhino (PCR) (NotDetected) Blood Parasites ID 05/12/22 Range/Units 06:00 WBC (4.8-10.8) K/ul RBC (4.20-5.40) M/uL Hgb (12.0-16.0) g/dl Hct (37.0-47.0) % MCV (80.0-100.0) fL MCH (25.0-34.0) pg MCHC (32.0-36.0) g/dL RDW Std Deviation (36.4-46.3) fL RDW Coeff of Deirk (11.5-14.5) % Plt Count (130-400) K/uL MPV (9.4-12.4) fL Immature Gran % (Auto) % Neut % (Auto) % Lymph % (Auto) % Garrard % (Auto) % Eos % (Auto) % Baso % (Auto) % Neut # (Auto) (1.40-6.50) K/uL Lymph # (Auto) (1.2-3.4) K/uL Garrard # (Auto) (0.11-0.59) K/uL Eos # (Auto) (0-0.50) K/uL Baso # (Auto) (0-0.2) K/uL Immature Gran # (Auto) (0.01-0.20) K/uL Absolute Nucleated RBC Nucleated RBC % (auto) Neutrophils % (Manual) Band Neutrophils % Lymphocytes % (Manual) Prolymphocyte % Reactive Lymphs % (Man) Monocytes % (Manual) Eosinophils % (Manual) Basophils % (Manual) Metamyelocytes % (Man) Myelocytes % (Man) Promyelocytes % (Man) Blast Cells % (Manual) Plasma Cell % (Manual) Other Cells % Nucleated RBC % Neutrophils # (Manual) Band Neutrophils # Total Absolute Neuts Lymphocytes # (Manual) Prolymphocyte # Reactive Lymphs # Total Abs Lymphocytes Monocytes # (Manual) Eosinophils # (Manual) Basophils # (Manual) Metamyelocytes # (Man) Myelocytes # (Manual) Promyelocytes # (Man) Blast Cells # (Man) Plasma Cell # (Manual) Other Cells # Nucleated RBCs # (Man) Hypersegmented Neuts Hyposegmented Neuts Hypogranular Neuts Large Granular Lymphs # Lrg Granular Lymphs Hairy Cells Smudge Cells Toxic Granulation Toxic Vacuolation Dohle Bodies Ilir Rods Platelet Estimate Hypogranular Platelets Clumped Platelets Giant Platelets Platelet Satelliting RBC Morphology Polychromasia Hypochromasia Poikilocytosis Basophilic Stippling Anisocytosis Microcytosis Macrocytosis Spherocytes Pappenheimer Bodies Sickle Cells Target Cells Tear Drop Cells Ovalocytes Stomatocytes Olivares-Vesper Bodies Echinocytes Acanthocytes (Spur) Rouleaux RBC Agglutinates Schistocytes Sezary Cell PT (9.0-12.0) Seconds INR (0.9-1.1) Sodium 133 L (136-145) mmol/L Potassium 3.6 (3.5-5.1) mmol/L Chloride 103 (98-107) mmol/L Carbon Dioxide 23 (21-32) mmol/L Anion Gap 7 (3-11) BUN 4 L (6-23) mg/dl Creatinine 0.42 L (0.6-1.2) mg/dl Est Cr Clr Drug Dosing 216.0 ml/min Est GFR ( Amer) > 150.0 ml/min Est GFR (Non-Af Amer) 138.5 ml/min BUN/Creatinine Ratio 9.5 L (10-20) Glucose 78 (70-99(Fasting)) mg/dl Calcium 8.5 (8.5-10.1) mg/dl Total Bilirubin 2.2 H (0.2-1.0) mg/dl Direct Bilirubin (0-0.2) mg/dl AST 457 H (13-39) U/L ALT 1190 H (7-52) U/L Alkaline Phosphatase 60 (34-104) U/L C-Reactive Protein (0-0.5) mg/dl Total Protein 6.1 (6.0-8.3) gm/dl Albumin 3.4 (3.4-5.0) gm/dl Globulin 2.7 (2.5-4.0) gm/dl Albumin/Globulin Ratio 1.3 (0.9-2) Ceruloplasmin (18-53) mg/dL Lipase (11-82) U/L TSH (0.300-4.500) uIu/ml Free T4 (0.61-1.60) ng/dl HCG, Quant mIU/ml Urine Color Urine Appearance (Clear) Urine pH (4.5-7.5) Ur Specific [place] (1.000-1.030) Urine Protein (Negative) Urine Glucose (UA) (Negative) Urine Ketones (Negative) Urine Blood (Negative) Urine Nitrite (Negative) Urine Bilirubin (Negative) Urine Urobilinogen (Negative) Ur Leukocyte Esterase (Negative) Urine RBC (0-4) /hpf Urine WBC (0-5) /hpf Ur Epithelial Cells (0-5) /lpf Urine Bacteria (Negative) Urine Mucus (None Prsent) Urine Opiates Screen (Neg) Ur Methadone, Qual (Neg) Acetaminophen (10-30) ug/ml Urine Barbiturates (Neg) Ur Phencyclidine (PCP) (Neg) U Amphetamin/Meth Scrn (Neg) MDMA (Ecstasy) Screen (Neg) U Benzodiazepines Scrn (Neg) Ur Cocaine Metabolite (Neg) U Marijuana (THC) Screen (Neg) IgG ([id number]) mg/dl NATHALIE Screen (NEGATIVE) Anti-Smooth Muscle Ab (NEGATIVE) Adenovirus (PCR) (NotDetected) Anaplasma Smear Babesia Smear B. pertussis DNA (PCR) (NotDetected) B.parapertussis DNA PCR (NotDetected) C. pneumoniae DNA (PCR) (NotDetected) Coronavirus OC43 (PCR) (NotDetected) Coronavirus HKU1 (PCR) (NotDetected) Coronavirus 229E (PCR) (NotDetected) SARS-CoV-2 (PCR) (NotDetected) Coronavirus NL63 (PCR) (NotDetected) Hepatitis A IgM Ab (NON-REACTIVE) Hep Bs Antigen (NON-REACTIVE) Hep Bs Ag Confirmation Hep B Core IgM Ab (NON-REACTIVE) Hepatitis C Ab (EIA) (NON-REACTIVE) Hep C Ab Signal/Cutoff (<1.00) Monoscreen (Negative) Human Metapneumovir PCR (NotDetected) Influenza Type A (PCR) (NotDetected) Influenza Type B (PCR) (NotDetected) M. pneumoniae (PCR) (NotDetected) Parainfluenza 1 (PCR) (NotDetected) Parainfluenza 2 (PCR) (NotDetected) Parainfluenza 3 (PCR) (NotDetected) Parainfluenza 4 (PCR) (NotDetected) RSV (PCR) (NotDetected) Entero/Rhino (PCR) (NotDetected) Blood Parasites ID US: IMPRESSION: 1. Living dichorionic diamniotic twin gestations. 2. Small bilateral subchorionic hemorrhages appear stable to mildly decreased in size from prior. 3. Closed cervix. AP: 27 yo at 8+wks with Di/ Di twins, admitted for heaptitis, HEG, HT VSS Afebrile BP's stable on Labetalol LFT's still elevated, GI following Hyperthyroidism, asymptomatic, most likely from HEG, plan to repeat in 2 weeks Still N&V, on clears Will advance slowly as tolerates today Continue to monitor clsely Results & Data ([facility]) Vital Signs (Past 12 Hours) Vital Signs Temp Pulse Resp BP Pulse Ox O2 Del Method 05/11/22 23:33 36.7 C 98 H 18 110/75 95 Room Air 05/11/22 21:27 93 H 128/88
[2022-05-12 09:23] LABS: 7-Aminoclonaz, Confirm NEGATIVE ng/mL (<25); Hydro-Alp Ur, GC/MS NEGATIVE ng/mL (<25); Hydroxyethylflurazepam, Conf NEGATIVE ng/mL (<50); Hydroxymidazolam Ur, GC/MS NEGATIVE ng/mL (<50); Hydroxytriazolam NEGATIVE ng/mL (<50); Lorazepam, Ur GC/MS NEGATIVE ng/mL (<50); Marijuana Quant, GCMS Urine 2454 ng/mL (<5); Nordiazepam, Confirm NEGATIVE ng/mL (<50); Oxazepam Ur, GC/MS NEGATIVE ng/mL (<50); Temazepam, Confirm NEGATIVE ng/mL (<50)
[2022-05-12] MEDS: LABETALOL HCL 100 MG TAB PO SCH ×2 (09:26→22:09)
--- NOTE | 2022-05-12 10:06 | Gastroenterology Progress Note ---
Date of Service May 12, 2022 Assessment & Plan (1) Nausea and vomiting: (2) Transaminitis: Plan 1. Await work up that is pending and continue supportive care. 2. Continue to trend liver panel which will likely normalize over the next several weeks. 3. Outpatient follow up in our office within 1 week of D/C. Will sign off now. Feel free to contact us with any questions/concerns. Admission and Anticipated Discharge Date Admission Date: May 09, 2022 Subjective Patient reports an episode of emesis but otherwise is asymptomatic from a GI standpoint. Viral work up to this point has been negative although EBV, CMV and HSV testing is still pending. Unremarkable autoantibody testing, ceruloplasmin and hepatitis serologies. AST and ALT increased slightly today but TB is stable at 2.2. Thyroid panel has been added to am labs and is pending. Review of Systems Constitutional: no fever and no chills Gastrointestinal: as per Subjective / HPI Physical Exam Constitutional: WD/WN, vitals as above Respiratory: normal respiratory effort, lungs clear to auscultation Cardiovascular: RRR, no murmur, no edema Gastrointestinal (Abdomen): normal bowel sounds, soft, nontender, no hepatosplenomegaly Psychiatric: A+Ox3, euthymic affect Results & Data Results & Data ([facility]) Vital Signs (Past 12 Hours) Vital Signs Temp Pulse Resp BP Pulse Ox Pulse Ox O2 Del Method 05/12/22 08:40 37.1 C 101 H 16 111/66 98 Room Air 05/12/22 08:40 98 05/11/22 23:33 36.7 C 98 H 18 110/75 95 Room Air O2 Del Method 05/12/22 08:40 05/12/22 08:40 Room Air 05/11/22 23:33 Diagnostic Findings Laboratory Results WBC 14.28 K/ul (4.8-10.8) H 05/12/22 06:00 RBC 4.67 M/uL (4.20-5.40) 05/12/22 06:00 Hgb 14.2 g/dl (12.0-16.0) 05/12/22 06:00 Hct 39.3 % (37.0-47.0) 05/12/22 06:00 MCV 84.2 fL (80.0-100.0) 05/12/22 06:00 MCH 30.4 pg (25.0-34.0) 05/12/22 06:00 MCHC 36.1 g/dL (32.0-36.0) H 05/12/22 06:00 RDW Std Deviation 36.4 fL (36.4-46.3) 05/12/22 06:00 RDW Coeff of Derik 12.1 % (11.5-14.5) 05/12/22 06:00 Plt Count 273 K/uL (130-400) 05/12/22 06:00 MPV 10.5 fL (9.4-12.4) 05/12/22 06:00 Immature Gran % (Auto) 0.4 % 05/11/22 07:54 Neut % (Auto) 66.3 % 05/11/22 07:54 Lymph % (Auto) 25.3 % 05/11/22 07:54 [place] % (Auto) 6.4 % 05/11/22 07:54 Eos % (Auto) 1.4 % 05/11/22 07:54 Baso % (Auto) 0.2 % 05/11/22 07:54 Neut # (Auto) 7.51 K/uL (1.40-6.50) H 05/11/22 07:54 Lymph # (Auto) 2.86 K/uL (1.2-3.4) 05/11/22 07:54 Carroll # (Auto) 0.72 K/uL (0.11-0.59) H 05/11/22 07:54 Eos # (Auto) 0.16 K/uL (0-0.50) 05/11/22 07:54 Baso # (Auto) 0.02 K/uL (0-0.2) 05/11/22 07:54 Immature Gran # (Auto) 0.05 K/uL (0.01-0.20) 05/11/22 07:54 Absolute Nucleated RBC Cancelled 05/10/22 05:47 Nucleated RBC % (auto) Cancelled 05/10/22 05:47 Neutrophils % (Manual) Cancelled 05/10/22 05:47 Band Neutrophils % Cancelled 05/10/22 05:47 Lymphocytes % (Manual) Cancelled 05/10/22 05:47 Prolymphocyte % Cancelled 05/10/22 05:47 Reactive Lymphs % (Man) Cancelled 05/10/22 05:47 Monocytes % (Manual) Cancelled 05/10/22 05:47 Eosinophils % (Manual) Cancelled 05/10/22 05:47 Basophils % (Manual) Cancelled 05/10/22 05:47 Metamyelocytes % (Man) Cancelled 05/10/22 05:47 Myelocytes % (Man) Cancelled 05/10/22 05:47 Promyelocytes % (Man) Cancelled 05/10/22 05:47 Blast Cells % (Manual) Cancelled 05/10/22 05:47 Plasma Cell % (Manual) Cancelled 05/10/22 05:47 Other Cells % Cancelled 05/10/22 05:47 Nucleated RBC % Cancelled 05/10/22 05:47 Neutrophils # (Manual) Cancelled 05/10/22 05:47 Band Neutrophils # Cancelled 05/10/22 05:47 Total Absolute Neuts Cancelled 05/10/22 05:47 Lymphocytes # (Manual) Cancelled 05/10/22 05:47 Prolymphocyte # Cancelled 05/10/22 05:47 Reactive Lymphs # Cancelled 05/10/22 05:47 Total Abs Lymphocytes Cancelled 05/10/22 05:47 Monocytes # (Manual) Cancelled 05/10/22 05:47 Eosinophils # (Manual) Cancelled 05/10/22 05:47 Basophils # (Manual) Cancelled 05/10/22 05:47 Metamyelocytes # (Man) Cancelled 05/10/22 05:47 Myelocytes # (Manual) Cancelled 05/10/22 05:47 Promyelocytes # (Man) Cancelled 05/10/22 05:47 Blast Cells # (Man) Cancelled 05/10/22 05:47 Plasma Cell # (Manual) Cancelled 05/10/22 05:47 Other Cells # Cancelled 05/10/22 05:47 Nucleated RBCs # (Man) Cancelled 05/10/22 05:47 Hypersegmented Neuts Cancelled 05/10/22 05:47 Hyposegmented Neuts Cancelled 05/10/22 05:47 Hypogranular Neuts Cancelled 05/10/22 05:47 Large Granular Lymphs Cancelled 05/10/22 05:47 # Lrg Granular Lymphs Cancelled 05/10/22 05:47 Hairy Cells Cancelled 05/10/22 05:47 Smudge Cells Cancelled 05/10/22 05:47 Toxic Granulation Cancelled 05/10/22 05:47 Toxic Vacuolation Cancelled 05/10/22 05:47 Dohle Bodies Cancelled 05/10/22 05:47 Ilir Rods Cancelled 05/10/22 05:47 Platelet Estimate Cancelled 05/10/22 05:47 Hypogranular Platelets Cancelled 05/10/22 05:47 Clumped Platelets Cancelled 05/10/22 05:47 Giant Platelets Cancelled 05/10/22 05:47 Platelet Satelliting Cancelled 05/10/22 05:47 RBC Morphology Cancelled 05/10/22 05:47 Polychromasia Cancelled 05/10/22 05:47 Hypochromasia Cancelled 05/10/22 05:47 Poikilocytosis Cancelled 05/10/22 05:47 Basophilic Stippling Cancelled 05/10/22 05:47 Anisocytosis Cancelled 05/10/22 05:47 Microcytosis Cancelled 05/10/22 05:47 Macrocytosis Cancelled 05/10/22 05:47 Spherocytes Cancelled 05/10/22 05:47 Pappenheimer Bodies Cancelled 05/10/22 05:47 Sickle Cells Cancelled 05/10/22 05:47 Target Cells Cancelled 05/10/22 05:47 Tear Drop Cells Cancelled 05/10/22 05:47 Ovalocytes Cancelled 05/10/22 05:47 Stomatocytes Cancelled 05/10/22 05:47 Olivares-Ahtanum Bodies Cancelled 05/10/22 05:47 Echinocytes Cancelled 05/10/22 05:47 Acanthocytes (Spur) Cancelled 05/10/22 05:47 Rouleaux Cancelled 05/10/22 05:47 RBC Agglutinates Cancelled 05/10/22 05:47 Schistocytes Cancelled 05/10/22 05:47 Sezary Cell Cancelled 05/10/22 05:47 PT 11.7 Seconds (9.0-12.0) 05/11/22 07:54 INR 1.1 (0.9-1.1) 05/11/22 07:54 Sodium 133 mmol/L (136-145) L 05/12/22 06:00 Potassium 3.6 mmol/L (3.5-5.1) 05/12/22 06:00 Chloride 103 mmol/L (98-107) 05/12/22 06:00 Carbon Dioxide 23 mmol/L (21-32) 05/12/22 06:00 Anion Gap 7 (3-11) 05/12/22 06:00 BUN 4 mg/dl (6-23) L 05/12/22 06:00 Creatinine 0.42 mg/dl (0.6-1.2) L 05/12/22 06:00 Est Cr Clr Drug Dosing 216.0 ml/min 05/12/22 06:00 Est GFR ( Amer) > 150.0 ml/min 05/12/22 06:00 Est GFR (Non-Af Amer) 138.5 ml/min 05/12/22 06:00 BUN/Creatinine Ratio 9.5 (10-20) L 05/12/22 06:00 Glucose 78 mg/dl (70-99(Fasting)) 05/12/22 06:00 Calcium 8.5 mg/dl (8.5-10.1) 05/12/22 06:00 Total Bilirubin 2.2 mg/dl (0.2-1.0) H 05/12/22 06:00 Direct Bilirubin 2.7 mg/dl (0-0.2) H 05/09/22 14:34 AST 457 U/L (13-39) H 05/12/22 06:00 ALT 1190 U/L (7-52) H 05/12/22 06:00 Alkaline Phosphatase 60 U/L (34-104) 05/12/22 06:00 C-Reactive Protein 2.23 mg/dl (0-0.5) H 05/09/22 14:34 Total Protein 6.1 gm/dl (6.0-8.3) 05/12/22 06:00 Albumin 3.4 gm/dl (3.4-5.0) 05/12/22 06:00 Globulin 2.7 gm/dl (2.5-4.0) 05/12/22 06:00 Albumin/Globulin Ratio 1.3 (0.9-2) 05/12/22 06:00 Ceruloplasmin 46 mg/dL (18-53) 05/10/22 05:47 Lipase 18 U/L (11-82) 05/09/22 14:34 TSH 0.033 uIu/ml (0.300-4.500) L 05/09/22 20:00 Free T4 1.95 ng/dl (0.61-1.60) H 05/09/22 20:00 HCG, Quant [id number] mIU/ml 05/09/22 17:37 Urine Color [place] 05/09/22 23:19 Urine Appearance Cloudy (Clear) A 05/09/22 23:19 Urine pH (4.5-7.5) 05/09/22 23:19 Ur Specific [place] 1.024 (1.000-1.030) 05/09/22 23:19 Urine Protein (Negative) 05/09/22 23:19 Urine Glucose (UA) (Negative) 05/09/22 23:19 Urine Ketones (Negative) 05/09/22 23:19 Urine Blood (Negative) 05/09/22 23:19 Urine Nitrite (Negative) 05/09/22 23:19 Urine Bilirubin (Negative) 05/09/22 23:19 Urine Urobilinogen (Negative) 05/09/22 23:19 Ur Leukocyte Esterase (Negative) 05/09/22 23:19 Urine RBC 0-4 /hpf (0-4) 05/09/22 23:19 Urine WBC 5-10 /hpf (0-5) H 05/09/22 23:19 Ur Epithelial Cells >30 /lpf (0-5) H 05/09/22 23:19 Urine Bacteria 2+ (Negative) H 05/09/22 23:19 Urine Mucus Present (None Prsent) A 05/09/22 23:19 Urine Opiates Screen Neg (Neg) 05/10/22 00:48 Ur Methadone, Qual Neg (Neg) 05/10/22 00:48 Acetaminophen < 3 ug/ml (10-30) L 05/09/22 21:11 Urine Barbiturates Neg (Neg) 05/10/22 00:48 Ur Phencyclidine (PCP) Neg (Neg) 05/10/22 00:48 U Amphetamin/Meth Scrn Neg (Neg) 05/10/22 00:48 MDMA (Ecstasy) Screen Neg (Neg) 05/10/22 00:48 U OH-Alprazolam Confrm NEGATIVE ng/mL (<25) 05/10/22 00:48 U Benzodiazepines Scrn Pos (Neg) H 05/10/22 00:48 7-Amino Clonazepam NEGATIVE ng/mL (<25) 05/10/22 00:48 Ur Nordiazepam Confirm NEGATIVE ng/mL (<50) 05/10/22 00:48 U OH-ethylflurazepam NEGATIVE ng/mL (<50) 05/10/22 00:48 U Lorazepam Cnf GC/MS NEGATIVE ng/mL (<50) 05/10/22 00:48 U Oxazepam Confm GC/MS NEGATIVE ng/mL (<50) 05/10/22 00:48 Ur Temazepam Confirm NEGATIVE ng/mL (<50) 05/10/22 00:48 U OH-Triazolam Confirm NEGATIVE ng/mL (<50) 05/10/22 00:48 U OH-Midazolam Confirm NEGATIVE ng/mL (<50) 05/10/22 00:48 Ur Cocaine Metabolite Neg (Neg) 05/10/22 00:48 U Marijuana (THC) Screen Pos (Neg) H 05/10/22 00:48 U Marijuana THC Carboxy 2454 ng/mL (<5) H 05/10/22 00:48 Drug Screen Comment SEE NOTE 05/10/22 00:48 IgG 1104.6 mg/dl (635-1741) 05/10/22 10:05 NATHALIE Screen NEGATIVE (NEGATIVE) 05/10/22 05:47 Anti-Smooth Muscle Ab NEGATIVE (NEGATIVE) 05/10/22 05:47 Adenovirus (PCR) Not Detected (NotDetected) 05/09/22 17:16 Anaplasma Smear See Comment 05/09/22 14:39 Babesia Smear See Comment 05/09/22 14:39 B. pertussis DNA (PCR) Not Detected (NotDetected) 05/09/22 17:16 B.parapertussis DNA PCR Not Detected (NotDetected) 05/09/22 17:16 C. pneumoniae DNA (PCR) Not Detected (NotDetected) 05/09/22 17:16 Coronavirus OC43 (PCR) Not Detected (NotDetected) 05/09/22 17:16 Coronavirus HKU1 (PCR) Not Detected (NotDetected) 05/09/22 17:16 Coronavirus 229E (PCR) Not Detected (NotDetected) 05/09/22 17:16 SARS-CoV-2 (PCR) Not Detected (NotDetected) 05/09/22 17:16 Coronavirus NL63 (PCR) Not Detected (NotDetected) 05/09/22 17:16 Hepatitis A IgM Ab NON-REACTIVE (NON-REACTIVE) 05/09/22 20:00 Hep Bs Antigen NON-REACTIVE (NON-REACTIVE) 05/09/22 20:00 Hep Bs Ag Confirmation TNP 05/09/22 20:00 Hep B Core IgM Ab NON-REACTIVE (NON-REACTIVE) 05/09/22 20:00 Hepatitis C Ab (EIA) NON-REACTIVE (NON-REACTIVE) 05/09/22 20:00 Hep C Ab Signal/Cutoff 0.05 (<1.00) 05/09/22 20:00 Monoscreen Negative (Negative) 05/09/22 20:00 Human Metapneumovir PCR Not Detected (NotDetected) 05/09/22 17:16 Influenza Type A (PCR) Not Detected (NotDetected) 05/09/22 17:16 Influenza Type B (PCR) Not Detected (NotDetected) 05/09/22 17:16 M. pneumoniae (PCR) Not Detected (NotDetected) 05/09/22 17:16 Parainfluenza 1 (PCR) Not Detected (NotDetected) 05/09/22 17:16 Parainfluenza 2 (PCR) Not Detected (NotDetected) 05/09/22 17:16 Parainfluenza 3 (PCR) Not Detected (NotDetected) 05/09/22 17:16 Parainfluenza 4 (PCR) Not Detected (NotDetected) 05/09/22 17:16 RSV (PCR) Not Detected (NotDetected) 05/09/22 17:16 Entero/Rhino (PCR) Not Detected (NotDetected) 05/09/22 17:16 Blood Parasites ID Cancelled 05/10/22 05:47 Impressions Gallbladder Ultrasound 05/09/22 17:59 ULTRASOUND RIGHT UPPER QUADRANT ABDOMEN CLINICAL HISTORY: Elevated hepatic transaminases. COMPARISON STUDY: Abdominal CT dated 12/17/2021. TECHNIQUE: Real-time, grayscale, and color flow sonography of the right upper quadrant of the abdomen was performed. Images are reviewed in the transverse and longitudinal planes. FINDINGS: Liver: The liver is normal in size and slightly heterogeneous in echotexture. There is no intrahepatic biliary ductal dilatation. The main portal vein is patent. Gallbladder: The gallbladder is normal in appearance. No shadowing gallstones are identified. There is no significant wall thickening or pericholecystic fluid. A sonographic Mccauley's sign is reportedly absent. The common bile duct measures up to 0.3 cm in diameter. Pancreas: Visualized portions of the pancreatic head and body are normal in appearance. The splenic vein is patent. Right kidney: Survey images of the right kidney demonstrate normal size and echotexture. There is no hydronephrosis. Ascites: None. IMPRESSION: No acute sonographic abnormality is seen in the right upper quadrant. No gallstones are identified. ACT 112: Negative or not required by law. Electronically signed by: James Brand M.D. 05/09/2022 7:12 PM Ultrasound 05/10/22 00:00 US OB <= 14 weeks fetus HISTORY: 27 years-old Female TWIN follow-up study in a patient with twin gestation COMPARISON: April 29, 2022 TECHNIQUE: Multiple real-time sonographic images of the deep pelvic structures were obtained transabdominally assessing grayscale appearance, color and spectral flow with M-mode analysis FINDINGS: Anteflexed uterus. Dichorionic diamniotic twin gestation redemonstrated. 1.4 x 0.9 x 2.9 cm subchorionic hematoma, previously 2.2 x 1.6 x 2.1 cm. Additional smaller subacute chronic hematomas are also present. Baby A is located inferiorly within the lower uterine segment on the left and demonstrates crown-rump length of 2.55 cm, 9 weeks 0 days with heart rate of 161 bpm. Gestational sac measures 3.42 cm. Baby B is located superiorly near the uterine fundus on the right and demonstrates crown-rump length of 2.67 cm, 8 weeks 5 days with heart rate of 167 bpm. Gestational sac measures 3.02 cm. Closed cervix. Right ovary measures 3.4 x 2.2 x 2.8 cm. 1.8 cm right ovarian corpus luteum. Left ovary measures 2.1 x 1.1 x 2.5 cm. Arterial inflow and venous outflow is documented bilaterally. IMPRESSION: 1. Living dichorionic diamniotic twin gestations. 2. Small bilateral subchorionic hemorrhages appear stable to mildly decreased in size from prior. 3. Closed cervix. ACT 112: Negative or not required by law. The above report was generated using voice recognition software. It may contain grammatical, syntax or spelling errors. Electronically signed by: Lamin Andrade M.D. 05/10/2022 8:51 AM Portal Vein US 05/10/22 00:00 US duplex portal hepatic veins CLINICAL HISTORY: Transaminitis, eval for thrombus COMPARISON STUDY: CT of the abdomen and pelvis January 16, 2022. TECHNIQUE: Color and duplex Doppler sonography of the major hepatic vessels was performed. FINDINGS: The main, right and left portal veins are patent with appropriately directed flow. Splenic vein is not well visualized due to overlying bowel gas. The middle, left and right hepatic veins are patent with appropriate phasicity. Visualized portions of the IVC are patent. IMPRESSION: Patent major hepatic vessels with appropriately directed flow. ACT 112: Negative or not required by law. Electronically signed by: Perry Mejia M.D. 05/10/2022 7:11 AM PG Care Time/CCT Total # of Minutes Spent Total Time Spent with Patient: Total time spent is greater than 50% in coordination of care (as documented) at patient's floor/unit and/or counseling patient: Coding Level of Care Code 20334 SUB INP/OBS CARE 3/50MIN Diagnoses Nausea and vomiting R11.2 Transaminitis R74.01
[2022-05-12 10:27] LABS: Thyroid Stimulating Hormone 0.074 uIu/ml (0.300-4.500)
[2022-05-12 10:29] LABS: T4 Free Thyroxine 1.6 ng/dl (0.61-1.60)
--- NOTE | 2022-05-12 19:30 | Hospitalist Progress Note ---
Date of Service May 12, 2022 Assessment & Plan (1) Hypertension: Plan: Almost certainly reactive. Blood pressure was up, and then once she was able to rest and was in less distress, it has since normalized overall. No intervention needed. (2) Elevated liver enzymes: Plan: Agree with gastroenterologyalmost certainly from a viral etiologya "true" hepatitis versus viral gastroenteritis with subsequent transaminitis. I suspect her bilirubin is largely due to passive congestion from liver inflammation. Trend back to normal - uptrend today less concerning overall given clinical stability - agree w GI and suspect will trend to normal over time. (3) Nausea and vomiting: Plan: Unfortunately while she was feeling a bit better yesterday evening, this morning she is quite sick again. Probably does have hyperemesis but had a viral illness overlying it as well. Appreciate OB management of this. Explained diagnosis to patient in depth again. (4) Leukocytosis: Plan: No signs or symptoms of bacterial infection noted. Suspect reactivelargely due to the intractable nausea vomiting. Overall picture reassuring from an infectious standpoint (5) Low TSH level: Plan: With elevated free T4. Biochemically this would be quite consistent with hyperthyroid. At the same time, with no tachycardia/diaphoresis, no tremulousness, and hypertension resolving with improvement in her overall distress from when she first arrivedis also quite possible these values are spurious in the context of acute illness. Certainly do not want to leave it unchecked if she has hyperthyroidism, recheck today trending in the right direction -- with no overt sx hyperthyroidism - still strongly suspect this is a euthyroid sick syndrome lab abnormality -- but definitely will need to follow periodic TFTs to trend - if doesn't continue to trend in the right direction or doesn't normalize over time - endocrine (marly given added complexity of ); if develops sx hyperthyroid - endocrine as well. may also be lab abnormalities of TFTs with physiology but given uncertainty - will want to trend as above. next check (barring new development of symptoms) ~5 days or so Plan will sign off of active management, trend daily LFT, repeat TSH, free T4 ~5 days. certainly happy to return to active management in case if need arises or patient requests. would have f/u PCP ~1wk after dc as well. Admission and Anticipated Discharge Date Admission Date: May 09, 2022 Subjective feeling nauseated still. not much helping. trying to eat a little. discussed hyperemesis again w pt/SO. discussed LFTs and TFTs as well. answered all questions to the best of my ability and to her satisfaction. no tremors, no racing heart, no sweats. Review of Systems Review of Systems: All systems reviewed & are unremarkable except as noted in HPI & below Physical Exam Physical Exam: fatigued but nad heent nc at mmm breathing unlabored no accessory muscles good effort skin no rashes no pallor or icterus neuro no focal deficits Results & Data Results & Data ([facility]) Vital Signs (Past 12 Hours) Vital Signs Temp Pulse Resp BP BP Pulse Ox Pulse Ox 05/12/22 18:53 98.2 F 88 18 107/73 99 05/12/22 16:17 98.1 F 75 16 111/76 98 05/12/22 11:45 98.2 F 100 H 14 122/86 98 05/12/22 08:40 98.8 F 101 H 16 111/66 98 05/12/22 08:40 98 O2 Del Method O2 Del Method 05/12/22 18:53 Room Air 05/12/22 16:17 Room Air 05/12/22 11:45 Room Air 05/12/22 08:40 Room Air 05/12/22 08:40 Room Air PG Care Time/CCT Total # of Minutes Spent Total Time Spent with Patient: Total time spent is greater than 50% in coordination of care (as documented) at patient's floor/unit and/or counseling patient: Coding Level of Care Code 41075 SUB INP/OBS CARE 2/35MIN Diagnoses Hypertension I10 Elevated liver enzymes R74.8 Nausea and vomiting R11.2 Leukocytosis D72.829 Low TSH level R79.89
[2022-05-13] MEDS: NSS + 20MEQ KCL 20 MEQ/1,000 ML BAG IV SCH ×2 (01:55→09:16)
[2022-05-13] MEDS: ONDANSETRON INJ 2 MG/ML 2 ML VIAL IV SCH ×3 (01:56→09:24)
[2022-05-13 03:42] LABS: Babesia microti DNA Not Detected (Not Detected)
[2022-05-13] MEDS: PROMETHAZINE HCL 25 MG in SODIUM CHLORIDE 0.9% 50 ML IV SCH ×2 (04:09→10:14)
[2022-05-13 07:03] LABS: Hematocrit (blood only) 35.8 % (37.0-47.0); Hemoglobin 12.7 g/dl (12.0-16.0); Mean Corpuscular Hemoglobin 30.2 pg (25.0-34.0); Mean Corpuscular Hgb Conc 35.5 g/dL (32.0-36.0); Mean Platelet Volume 10.7 fL (9.4-12.4); Platelet Count 229 K/uL (130-400); RDW Coefficient of Variation 12.2 % (11.5-14.5); RDW Standard Deviation 37.7 fL (36.4-46.3); Red Blood Count 4.21 M/uL (4.20-5.40); White Blood Count 9.02 K/ul (4.8-10.8)
[2022-05-13 07:27] LABS: BUN Creatinine Ratio 13.2 (10-20); Creatinine Clr Calc Pharmacy 171.2 ml/min; Est GFR (African American) 148.7 ml/min; Est GFR (Non-African American) 128.3 ml/min
[2022-05-13 07:46] LABS: Albumin Globulin Ratio 1.3 (0.9-2); Albumin Level 2.9 gm/dl (3.4-5.0); Bilirubin,Total 1.2 mg/dl (0.2-1.0); Globulin 2.3 gm/dl (2.5-4.0); Total Protein 5.2 gm/dl (6.0-8.3)
[2022-05-13] MEDS: PRENATAL VITAMIN 1 TAB PO SCH (09:15)
[2022-05-13] MEDS: LABETALOL HCL 100 MG TAB PO SCH (09:23)
--- NOTE | 2022-05-13 10:29 | Progress Note ---
Date of Service May 13, 2022 Assessment & Plan (1) Elevated liver enzymes: Plan: discharged home follow up next week in office (2) Twin in first trimester: (3) Hyperemesis gravidarum: (4) Cannabinoid hyperemesis syndrome: Admission and Anticipated Discharge Date Admission Date: May 09, 2022 Subjective doing well was able to keep both liquids and her breakfast down this morning Physical Exam Constitutional: WD/WN, vitals as above Results & Data ([place]) Vital Signs (Past 12 Hours) Vital Signs Temp Pulse Resp BP Pulse Ox Pulse Ox O2 Del Method 05/13/22 09:10 36.7 C 82 16 118/79 98 Room Air 05/13/22 09:10 98 05/13/22 00:00 97 05/12/22 22:55 36.6 C 86 20 97/65 L 97 Room Air O2 Del Method 05/13/22 09:10 05/13/22 09:10 Room Air 05/13/22 00:00 Room Air 05/12/22 22:55 Laboratory Results 05/09/22 05/09/22 05/09/22 14:34 14:34 14:39 WBC 19.71 H RBC 6.14 H Hgb 18.8 H Hct 49.7 H MCV 80.9 MCH 30.6 MCHC 37.8 H RDW Std Deviation 35.5 L RDW Coeff of Derik 12.2 Plt Count 516 H MPV 10.5 Immature Gran % (Auto) 0.4 Neut % (Auto) 78.1 Lymph % (Auto) 12.6 Rabun % (Auto) 8.6 Eos % (Auto) 0.1 Baso % (Auto) 0.2 Neut # (Auto) 15.41 H Lymph # (Auto) 2.48 Rabun # (Auto) 1.69 H Eos # (Auto) 0.02 Baso # (Auto) 0.03 Immature Gran # (Auto) 0.08 Absolute Nucleated RBC Nucleated RBC % (auto) Neutrophils % (Manual) Band Neutrophils % Lymphocytes % (Manual) Prolymphocyte % Reactive Lymphs % (Man) Monocytes % (Manual) Eosinophils % (Manual) Basophils % (Manual) Metamyelocytes % (Man) Myelocytes % (Man) Promyelocytes % (Man) Blast Cells % (Manual) Plasma Cell % (Manual) Other Cells % Nucleated RBC % Neutrophils # (Manual) Band Neutrophils # Total Absolute Neuts Lymphocytes # (Manual) Prolymphocyte # Reactive Lymphs # Total Abs Lymphocytes Monocytes # (Manual) Eosinophils # (Manual) Basophils # (Manual) Metamyelocytes # (Man) Myelocytes # (Manual) Promyelocytes # (Man) Blast Cells # (Man) Plasma Cell # (Manual) Other Cells # Nucleated RBCs # (Man) Hypersegmented Neuts Hyposegmented Neuts Hypogranular Neuts Large Granular Lymphs # Lrg Granular Lymphs Hairy Cells Smudge Cells Toxic Granulation Toxic Vacuolation Dohle Bodies Ilir Rods Platelet Estimate Hypogranular Platelets Clumped Platelets Giant Platelets Platelet Satelliting RBC Morphology Polychromasia Hypochromasia Poikilocytosis Basophilic Stippling Anisocytosis Microcytosis Macrocytosis Spherocytes Pappenheimer Bodies Sickle Cells Target Cells Tear Drop Cells Ovalocytes Stomatocytes Olivares-[place] Bodies Echinocytes Acanthocytes (Spur) Rouleaux RBC Agglutinates Schistocytes Sezary Cell PT INR Sodium 138 Potassium 2.9 L Chloride 91 L Carbon Dioxide 33 H Anion Gap 14 H BUN 15 Creatinine 0.82 Est Cr Clr Drug Dosing 109.5 Est GFR ( Amer) 112.1 Est GFR (Non-Af Amer) 96.7 BUN/Creatinine Ratio 18.3 Glucose 91 Calcium 10.2 H Total Bilirubin 6.9 H Direct Bilirubin 2.7 H AST 545 H ALT 1481 H Alkaline Phosphatase 62 C-Reactive Protein 2.23 H Total Protein 8.7 H Albumin 4.7 Globulin 4.0 Albumin/Globulin Ratio 1.2 Ceruloplasmin Lipase 18 TSH Free T4 HCG, Quant Urine Color Urine Appearance Urine pH Ur Specific [place] Urine Protein Urine Glucose (UA) Urine Ketones Urine Blood Urine Nitrite Urine Bilirubin Urine Urobilinogen Ur Leukocyte Esterase Urine RBC Urine WBC Ur Epithelial Cells Urine Bacteria Urine Mucus Urine Opiates Screen Ur Methadone, Qual Acetaminophen Urine Barbiturates Ur Phencyclidine (PCP) U Amphetamin/Meth Scrn MDMA (Ecstasy) Screen U OH-Alprazolam Confrm U Benzodiazepines Scrn 7-Amino Clonazepam Ur Nordiazepam Confirm U OH-ethylflurazepam U Lorazepam Cnf GC/MS U Oxazepam Confm GC/MS Ur Temazepam Confirm U OH-Triazolam Confirm U OH-Midazolam Confirm Ur Cocaine Metabolite U Marijuana (THC) Screen U Marijuana THC Carboxy Drug Screen Comment IgG NATHALIE Screen Anti-Smooth Muscle Ab Adenovirus (PCR) Anaplasma Smear See Comment Babesia Smear See Comment Babesia microti DNA PCR B. pertussis DNA (PCR) B.parapertussis DNA PCR C. pneumoniae DNA (PCR) Coronavirus OC43 (PCR) Coronavirus HKU1 (PCR) Coronavirus 229E (PCR) SARS-CoV-2 (PCR) Coronavirus NL63 (PCR) Hepatitis A IgM Ab Hep Bs Antigen Hep Bs Ag Confirmation Hep B Core IgM Ab Hepatitis C Ab (EIA) Hep C Ab Signal/Cutoff Monoscreen Human Metapneumovir PCR Influenza Type A (PCR) Influenza Type B (PCR) M. pneumoniae (PCR) Parainfluenza 1 (PCR) Parainfluenza 2 (PCR) Parainfluenza 3 (PCR) Parainfluenza 4 (PCR) RSV (PCR) Entero/Rhino (PCR) Blood Parasites ID 05/09/22 05/09/22 05/09/22 14:39 17:16 17:37 WBC RBC Hgb Hct MCV MCH MCHC RDW Std Deviation RDW Coeff of Derik Plt Count MPV Immature Gran % (Auto) Neut % (Auto) Lymph % (Auto) Rab[place] % (Auto) Eos % (Auto) Baso % (Auto) Neut # (Auto) Lymph # (Auto) Rab[place] # (Auto) Eos # (Auto) Baso # (Auto) Immature Gran # (Auto) Absolute Nucleated RBC Nucleated RBC % (auto) Neutrophils % (Manual) Band Neutrophils % Lymphocytes % (Manual) Prolymphocyte % Reactive Lymphs % (Man) Monocytes % (Manual) Eosinophils % (Manual) Basophils % (Manual) Metamyelocytes % (Man) Myelocytes % (Man) Promyelocytes % (Man) Blast Cells % (Manual) Plasma Cell % (Manual) Other Cells % Nucleated RBC % Neutrophils # (Manual) Band Neutrophils # Total Absolute Neuts Lymphocytes # (Manual) Prolymphocyte # Reactive Lymphs # Total Abs Lymphocytes Monocytes # (Manual) Eosinophils # (Manual) Basophils # (Manual) Metamyelocytes # (Man) Myelocytes # (Manual) Promyelocytes # (Man) Blast Cells # (Man) Plasma Cell # (Manual) Other Cells # Nucleated RBCs # (Man) Hypersegmented Neuts Hyposegmented Neuts Hypogranular Neuts Large Granular Lymphs # Lrg Granular Lymphs Hairy Cells Smudge Cells Toxic Granulation Toxic Vacuolation Dohle Bodies Ilir Rods Platelet Estimate Hypogranular Platelets Clumped Platelets Giant Platelets Platelet Satelliting RBC Morphology Polychromasia Hypochromasia Poikilocytosis Basophilic Stippling Anisocytosis Microcytosis Macrocytosis Spherocytes Pappenheimer Bodies Sickle Cells Target Cells Tear Drop Cells Ovalocytes Stomatocytes Olivares[place] Bodies Echinocytes Acanthocytes (Spur) Rouleaux RBC Agglutinates Schistocytes Sezary Cell PT INR Sodium Potassium Chloride Carbon Dioxide Anion Gap BUN Creatinine Est Cr Clr Drug Dosing Est GFR ( Amer) Est GFR (Non-Af Amer) BUN/Creatinine Ratio Glucose Calcium Total Bilirubin Direct Bilirubin AST ALT Alkaline Phosphatase C-Reactive Protein Total Protein Albumin Globulin Albumin/Globulin Ratio Ceruloplasmin Lipase TSH Free T4 HCG, Quant [id number] Urine Color Urine Appearance Urine pH Ur Specific [place] Urine Protein Urine Glucose (UA) Urine Ketones Urine Blood Urine Nitrite Urine Bilirubin Urine Urobilinogen Ur Leukocyte Esterase Urine RBC Urine WBC Ur Epithelial Cells Urine Bacteria Urine Mucus Urine Opiates Screen Ur Methadone, Qual Acetaminophen Urine Barbiturates Ur Phencyclidine (PCP) U Amphetamin/Meth Scrn MDMA (Ecstasy) Screen U OH-Alprazolam Confrm U Benzodiazepines Scrn 7-Amino Clonazepam Ur Nordiazepam Confirm U OH-ethylflurazepam U Lorazepam Cnf GC/MS U Oxazepam Confm GC/MS Ur Temazepam Confirm U OH-Triazolam Confirm U OH-Midazolam Confirm Ur Cocaine Metabolite U Marijuana (THC) Screen U Marijuana THC Carboxy Drug Screen Comment IgG NATHALIE Screen Anti-Smooth Muscle Ab Adenovirus (PCR) Not Detected Anaplasma Smear Babesia Smear Babesia microti DNA PCR Not Detected B. pertussis DNA (PCR) Not Detected B.parapertussis DNA PCR Not Detected C. pneumoniae DNA (PCR) Not Detected Coronavirus OC43 (PCR) Not Detected Coronavirus HKU1 (PCR) Not Detected Coronavirus 229E (PCR) Not Detected SARS-CoV-2 (PCR) Not Detected Coronavirus NL63 (PCR) Not Detected Hepatitis A IgM Ab Hep Bs Antigen Hep Bs Ag Confirmation Hep B Core IgM Ab Hepatitis C Ab (EIA) Hep C Ab Signal/Cutoff Monoscreen Human Metapneumovir PCR Not Detected Influenza Type A (PCR) Not Detected Influenza Type B (PCR) Not Detected M. pneumoniae (PCR) Not Detected Parainfluenza 1 (PCR) Not Detected Parainfluenza 2 (PCR) Not Detected Parainfluenza 3 (PCR) Not Detected Parainfluenza 4 (PCR) Not Detected RSV (PCR) Not Detected Entero/Rhino (PCR) Not Detected Blood Parasites ID 05/09/22 05/09/22 05/09/22 20:00 20:00 20:00 WBC RBC Hgb Hct MCV MCH MCHC RDW Std Deviation RDW Coeff of Derik Plt Count MPV Immature Gran % (Auto) Neut % (Auto) Lymph % (Auto) Rab[place] % (Auto) Eos % (Auto) Baso % (Auto) Neut # (Auto) Lymph # (Auto) [place] # (Auto) Eos # (Auto) Baso # (Auto) Immature Gran # (Auto) Absolute Nucleated RBC Nucleated RBC % (auto) Neutrophils % (Manual) Band Neutrophils % Lymphocytes % (Manual) Prolymphocyte % Reactive Lymphs % (Man) Monocytes % (Manual) Eosinophils % (Manual) Basophils % (Manual) Metamyelocytes % (Man) Myelocytes % (Man) Promyelocytes % (Man) Blast Cells % (Manual) Plasma Cell % (Manual) Other Cells % Nucleated RBC % Neutrophils # (Manual) Band Neutrophils # Total Absolute Neuts Lymphocytes # (Manual) Prolymphocyte # Reactive Lymphs # Total Abs Lymphocytes Monocytes # (Manual) Eosinophils # (Manual) Basophils # (Manual) Metamyelocytes # (Man) Myelocytes # (Manual) Promyelocytes # (Man) Blast Cells # (Man) Plasma Cell # (Manual) Other Cells # Nucleated RBCs # (Man) Hypersegmented Neuts Hyposegmented Neuts Hypogranular Neuts Large Granular Lymphs # Lrg Granular Lymphs Hairy Cells Smudge Cells Toxic Granulation Toxic Vacuolation Dohle Bodies Ilir Rods Platelet Estimate Hypogranular Platelets Clumped Platelets Giant Platelets Platelet Satelliting RBC Morphology Polychromasia Hypochromasia Poikilocytosis Basophilic Stippling Anisocytosis Microcytosis Macrocytosis Spherocytes Pappenheimer Bodies Sickle Cells Target Cells Tear Drop Cells Ovalocytes Stomatocytes Olivares[place] Bodies Echinocytes Acanthocytes (Spur) Rouleaux RBC Agglutinates Schistocytes Sezary Cell PT INR Sodium Potassium Chloride Carbon Dioxide Anion Gap BUN Creatinine Est Cr Clr Drug Dosing Est GFR ( Amer) Est GFR (Non-Af Amer) BUN/Creatinine Ratio Glucose Calcium Total Bilirubin Direct Bilirubin AST ALT Alkaline Phosphatase C-Reactive Protein Total Protein Albumin Globulin Albumin/Globulin Ratio Ceruloplasmin Lipase TSH 0.033 L Free T4 1.95 H HCG, Quant Urine Color Urine Appearance Urine pH Ur Specific [place] Urine Protein Urine Glucose (UA) Urine Ketones Urine Blood Urine Nitrite Urine Bilirubin Urine Urobilinogen Ur Leukocyte Esterase Urine RBC Urine WBC Ur Epithelial Cells Urine Bacteria Urine Mucus Urine Opiates Screen Ur Methadone, Qual Acetaminophen Urine Barbiturates Ur Phencyclidine (PCP) U Amphetamin/Meth Scrn MDMA (Ecstasy) Screen U OH-Alprazolam Confrm U Benzodiazepines Scrn 7-Amino Clonazepam Ur Nordiazepam Confirm U OH-ethylflurazepam U Lorazepam Cnf GC/MS U Oxazepam Confm GC/MS Ur Temazepam Confirm U OH-Triazolam Confirm U OH-Midazolam Confirm Ur Cocaine Metabolite U Marijuana (THC) Screen U Marijuana THC Carboxy Drug Screen Comment IgG NATHALIE Screen Anti-Smooth Muscle Ab Adenovirus (PCR) Anaplasma Smear Babesia Smear Babesia microti DNA PCR B. pertussis DNA (PCR) B.parapertussis DNA PCR C. pneumoniae DNA (PCR) Coronavirus OC43 (PCR) Coronavirus HKU1 (PCR) Coronavirus 229E (PCR) SARS-CoV-2 (PCR) Coronavirus NL63 (PCR) Hepatitis A IgM Ab NON-REACTIVE Hep Bs Antigen NON-REACTIVE Hep Bs Ag Confirmation TNP Hep B Core IgM Ab NON-REACTIVE Hepatitis C Ab (EIA) NON-REACTIVE Hep C Ab Signal/Cutoff 0.05 Monoscreen Negative Human Metapneumovir PCR Influenza Type A (PCR) Influenza Type B (PCR) M. pneumoniae (PCR) Parainfluenza 1 (PCR) Parainfluenza 2 (PCR) Parainfluenza 3 (PCR) Parainfluenza 4 (PCR) RSV (PCR) Entero/Rhino (PCR) Blood Parasites ID 05/09/22 05/09/22 05/09/22 21:11 21:11 23:19 WBC RBC Hgb Hct MCV MCH MCHC RDW Std Deviation RDW Coeff of Derik Plt Count MPV Immature Gran % (Auto) Neut % (Auto) Lymph % (Auto) [place] % (Auto) Eos % (Auto) Baso % (Auto) Neut # (Auto) Lymph # (Auto) [place] # (Auto) Eos # (Auto) Baso # (Auto) Immature Gran # (Auto) Absolute Nucleated RBC Nucleated RBC % (auto) Neutrophils % (Manual) Band Neutrophils % Lymphocytes % (Manual) Prolymphocyte % Reactive Lymphs % (Man) Monocytes % (Manual) Eosinophils % (Manual) Basophils % (Manual) Metamyelocytes % (Man) Myelocytes % (Man) Promyelocytes % (Man) Blast Cells % (Manual) Plasma Cell % (Manual) Other Cells % Nucleated RBC % Neutrophils # (Manual) Band Neutrophils # Total Absolute Neuts Lymphocytes # (Manual) Prolymphocyte # Reactive Lymphs # Total Abs Lymphocytes Monocytes # (Manual) Eosinophils # (Manual) Basophils # (Manual) Metamyelocytes # (Man) Myelocytes # (Manual) Promyelocytes # (Man) Blast Cells # (Man) Plasma Cell # (Manual) Other Cells # Nucleated RBCs # (Man) Hypersegmented Neuts Hyposegmented Neuts Hypogranular Neuts Large Granular Lymphs # Lrg Granular Lymphs Hairy Cells Smudge Cells Toxic Granulation Toxic Vacuolation Dohle Bodies Ilir Rods Platelet Estimate Hypogranular Platelets Clumped Platelets Giant Platelets Platelet Satelliting RBC Morphology Polychromasia Hypochromasia Poikilocytosis Basophilic Stippling Anisocytosis Microcytosis Macrocytosis Spherocytes Pappenheimer Bodies Sickle Cells Target Cells Tear Drop Cells Ovalocytes Stomatocytes Olivares[place] Bodies Echinocytes Acanthocytes (Spur) Rouleaux RBC Agglutinates Schistocytes Sezary Cell PT 11.9 INR 1.1 Sodium Potassium Chloride Carbon Dioxide Anion Gap BUN Creatinine Est Cr Clr Drug Dosing Est GFR ( Amer) Est GFR (Non-Af Amer) BUN/Creatinine Ratio Glucose Calcium Total Bilirubin Direct Bilirubin AST ALT Alkaline Phosphatase C-Reactive Protein Total Protein Albumin Globulin Albumin/Globulin Ratio Ceruloplasmin Lipase TSH Free T4 HCG, Quant Urine Color [place] Urine Appearance Cloudy A Urine pH Ur Specific [place] 1.024 Urine Protein Urine Glucose (UA) Urine Ketones Urine Blood Urine Nitrite Urine Bilirubin Urine Urobilinogen Ur Leukocyte Esterase Urine RBC 0-4 Urine WBC 5-10 H Ur Epithelial Cells >30 H Urine Bacteria 2+ H Urine Mucus Present A Urine Opiates Screen Ur Methadone, Qual Acetaminophen < 3 L Urine Barbiturates Ur Phencyclidine (PCP) U Amphetamin/Meth Scrn MDMA (Ecstasy) Screen U OH-Alprazolam Confrm U Benzodiazepines Scrn 7-Amino Clonazepam Ur Nordiazepam Confirm U OH-ethylflurazepam U Lorazepam Cnf GC/MS U Oxazepam Confm GC/MS Ur Temazepam Confirm U OH-Triazolam Confirm U OH-Midazolam Confirm Ur Cocaine Metabolite U Marijuana (THC) Screen U Marijuana THC Carboxy Drug Screen Comment IgG NATHALIE Screen Anti-Smooth Muscle Ab Adenovirus (PCR) Anaplasma Smear Babesia Smear Babesia microti DNA PCR B. pertussis DNA (PCR) B.parapertussis DNA PCR C. pneumoniae DNA (PCR) Coronavirus OC43 (PCR) Coronavirus HKU1 (PCR) Coronavirus 229E (PCR) SARS-CoV-2 (PCR) Coronavirus NL63 (PCR) Hepatitis A IgM Ab Hep Bs Antigen Hep Bs Ag Confirmation Hep B Core IgM Ab Hepatitis C Ab (EIA) Hep C Ab Signal/Cutoff Monoscreen Human Metapneumovir PCR Influenza Type A (PCR) Influenza Type B (PCR) M. pneumoniae (PCR) Parainfluenza 1 (PCR) Parainfluenza 2 (PCR) Parainfluenza 3 (PCR) Parainfluenza 4 (PCR) RSV (PCR) Entero/Rhino (PCR) Blood Parasites ID 05/10/22 05/10/22 05/10/22 00:48 00:48 05:47 WBC RBC Hgb Hct MCV MCH MCHC RDW Std Deviation RDW Coeff of Derik Plt Count MPV Immature Gran % (Auto) Neut % (Auto) Lymph % (Auto) [place] % (Auto) Eos % (Auto) Baso % (Auto) Neut # (Auto) Lymph # (Auto) [place] # (Auto) Eos # (Auto) Baso # (Auto) Immature Gran # (Auto) Absolute Nucleated RBC Nucleated RBC % (auto) Neutrophils % (Manual) Band Neutrophils % Lymphocytes % (Manual) Prolymphocyte % Reactive Lymphs % (Man) Monocytes % (Manual) Eosinophils % (Manual) Basophils % (Manual) Metamyelocytes % (Man) Myelocytes % (Man) Promyelocytes % (Man) Blast Cells % (Manual) Plasma Cell % (Manual) Other Cells % Nucleated RBC % Neutrophils # (Manual) Band Neutrophils # Total Absolute Neuts Lymphocytes # (Manual) Prolymphocyte # Reactive Lymphs # Total Abs Lymphocytes Monocytes # (Manual) Eosinophils # (Manual) Basophils # (Manual) Metamyelocytes # (Man) Myelocytes # (Manual) Promyelocytes # (Man) Blast Cells # (Man) Plasma Cell # (Manual) Other Cells # Nucleated RBCs # (Man) Hypersegmented Neuts Hyposegmented Neuts Hypogranular Neuts Large Granular Lymphs # Lrg Granular Lymphs Hairy Cells Smudge Cells Toxic Granulation Toxic Vacuolation Dohle Bodies Ilir Rods Platelet Estimate Hypogranular Platelets Clumped Platelets Giant Platelets Platelet Satelliting RBC Morphology Polychromasia Hypochromasia Poikilocytosis Basophilic Stippling Anisocytosis Microcytosis Macrocytosis Spherocytes Pappenheimer Bodies Sickle Cells Target Cells Tear Drop Cells Ovalocytes Stomatocytes Oliv[place] Bodies Echinocytes Acanthocytes (Spur) Rouleaux RBC Agglutinates Schistocytes Sezary Cell PT INR Sodium Potassium Chloride Carbon Dioxide Anion Gap BUN Creatinine Est Cr Clr Drug Dosing Est GFR ( Amer) Est GFR (Non-Af Amer) BUN/Creatinine Ratio Glucose Calcium Total Bilirubin Direct Bilirubin AST ALT Alkaline Phosphatase C-Reactive Protein Total Protein Albumin Globulin Albumin/Globulin Ratio Ceruloplasmin 46 Lipase TSH Free T4 HCG, Quant Urine Color Urine Appearance Urine pH Ur Specific [place] Urine Protein Urine Glucose (UA) Urine Ketones Urine Blood Urine Nitrite Urine Bilirubin Urine Urobilinogen Ur Leukocyte Esterase Urine RBC Urine WBC Ur Epithelial Cells Urine Bacteria Urine Mucus Urine Opiates Screen Neg Ur Methadone, Qual Neg Acetaminophen Urine Barbiturates Neg Ur Phencyclidine (PCP) Neg U Amphetamin/Meth Scrn Neg MDMA (Ecstasy) Screen Neg U OH-Alprazolam Confrm NEGATIVE U Benzodiazepines Scrn Pos H 7-Amino Clonazepam NEGATIVE Ur Nordiazepam Confirm NEGATIVE U OH-ethylflurazepam NEGATIVE U Lorazepam Cnf GC/MS NEGATIVE U Oxazepam Confm GC/MS NEGATIVE Ur Temazepam Confirm NEGATIVE U OH-Triazolam Confirm NEGATIVE U OH-Midazolam Confirm NEGATIVE Ur Cocaine Metabolite Neg U Marijuana (THC) Screen Pos H U Marijuana THC Carboxy 2454 H Drug Screen Comment SEE NOTE IgG NATHALIE Screen NEGATIVE Anti-Smooth Muscle Ab NEGATIVE Adenovirus (PCR) Anaplasma Smear Babesia Smear Babesia microti DNA PCR B. pertussis DNA (PCR) B.parapertussis DNA PCR C. pneumoniae DNA (PCR) Coronavirus OC43 (PCR) Coronavirus HKU1 (PCR) Coronavirus 229E (PCR) SARS-CoV-2 (PCR) Coronavirus NL63 (PCR) Hepatitis A IgM Ab Hep Bs Antigen Hep Bs Ag Confirmation Hep B Core IgM Ab Hepatitis C Ab (EIA) Hep C Ab Signal/Cutoff Monoscreen Human Metapneumovir PCR Influenza Type A (PCR) Influenza Type B (PCR) M. pneumoniae (PCR) Parainfluenza 1 (PCR) Parainfluenza 2 (PCR) Parainfluenza 3 (PCR) Parainfluenza 4 (PCR) RSV (PCR) Entero/Rhino (PCR) Blood Parasites ID 05/10/22 05/10/22 05/10/22 05:47 05:47 07:26 WBC Cancelled 13.85 H RBC Cancelled 4.94 Hgb Cancelled 14.7 D Hct Cancelled 41.5 MCV Cancelled 84.0 MCH Cancelled 29.8 MCHC Cancelled 35.4 RDW Std Deviation Cancelled 37.1 RDW Coeff of Derik Cancelled 12.3 Plt Count Cancelled 343 MPV Cancelled 10.6 Immature Gran % (Auto) Cancelled 0.4 Neut % (Auto) Cancelled 74.7 Lymph % (Auto) Cancelled 15.5 Rab[place] % (Auto) Cancelled 9.1 Eos % (Auto) Cancelled 0.2 Baso % (Auto) Cancelled 0.1 Neut # (Auto) Cancelled 10.36 H Lymph # (Auto) Cancelled 2.14 Rabun # (Auto) Cancelled 1.26 H Eos # (Auto) Cancelled 0.03 Baso # (Auto) Cancelled 0.01 Immature Gran # (Auto) Cancelled 0.05 Absolute Nucleated RBC Cancelled Nucleated RBC % (auto) Cancelled Neutrophils % (Manual) Cancelled Band Neutrophils % Cancelled Lymphocytes % (Manual) Cancelled Prolymphocyte % Cancelled Reactive Lymphs % (Man) Cancelled Monocytes % (Manual) Cancelled Eosinophils % (Manual) Cancelled Basophils % (Manual) Cancelled Metamyelocytes % (Man) Cancelled Myelocytes % (Man) Cancelled Promyelocytes % (Man) Cancelled Blast Cells % (Manual) Cancelled Plasma Cell % (Manual) Cancelled Other Cells % Cancelled Nucleated RBC % Cancelled Neutrophils # (Manual) Cancelled Band Neutrophils # Cancelled Total Absolute Neuts Cancelled Lymphocytes # (Manual) Cancelled Prolymphocyte # Cancelled Reactive Lymphs # Cancelled Total Abs Lymphocytes Cancelled Monocytes # (Manual) Cancelled Eosinophils # (Manual) Cancelled Basophils # (Manual) Cancelled Metamyelocytes # (Man) Cancelled Myelocytes # (Manual) Cancelled Promyelocytes # (Man) Cancelled Blast Cells # (Man) Cancelled Plasma Cell # (Manual) Cancelled Other Cells # Cancelled Nucleated RBCs # (Man) Cancelled Hypersegmented Neuts Cancelled Hyposegmented Neuts Cancelled Hypogranular Neuts Cancelled Large Granular Lymphs Cancelled # Lrg Granular Lymphs Cancelled Hairy Cells Cancelled Smudge Cells Cancelled Toxic Granulation Cancelled Toxic Vacuolation Cancelled Dohle Bodies Cancelled Ilir Rods Cancelled Platelet Estimate Cancelled Hypogranular Platelets Cancelled Clumped Platelets Cancelled Giant Platelets Cancelled Platelet Satelliting Cancelled RBC Morphology Cancelled Polychromasia Cancelled Hypochromasia Cancelled Poikilocytosis Cancelled Basophilic Stippling Cancelled Anisocytosis Cancelled Microcytosis Cancelled Macrocytosis Cancelled Spherocytes Cancelled Pappenheimer Bodies Cancelled Sickle Cells Cancelled Target Cells Cancelled Tear Drop Cells Cancelled Ovalocytes Cancelled Stomatocytes Cancelled Olivares[place] Bodies Cancelled Echinocytes Cancelled Acanthocytes (Spur) Cancelled Rouleaux Cancelled RBC Agglutinates Cancelled Schistocytes Cancelled Sezary Cell Cancelled PT INR Sodium 140 Potassium 2.9 L Chloride 101 Carbon Dioxide 29 Anion Gap 10 BUN 12 Creatinine 0.57 L Est Cr Clr Drug Dosing 159.2 Est GFR ( Amer) 145.2 Est GFR (Non-Af Amer) 125.3 BUN/Creatinine Ratio 21.1 H Glucose 94 Calcium 8.8 Total Bilirubin 6.3 H Direct Bilirubin AST 419 H ALT 1264 H Alkaline Phosphatase 49 C-Reactive Protein Total Protein 6.5 D Albumin 3.6 Globulin 2.9 Albumin/Globulin Ratio 1.2 Ceruloplasmin Lipase TSH Free T4 HCG, Quant Urine Color Urine Appearance Urine pH Ur Specific [place] Urine Protein Urine Glucose (UA) Urine Ketones Urine Blood Urine Nitrite Urine Bilirubin Urine Urobilinogen Ur Leukocyte Esterase Urine RBC Urine WBC Ur Epithelial Cells Urine Bacteria Urine Mucus Urine Opiates Screen Ur Methadone, Qual Acetaminophen Urine Barbiturates Ur Phencyclidine (PCP) U Amphetamin/Meth Scrn MDMA (Ecstasy) Screen U OH-Alprazolam Confrm U Benzodiazepines Scrn 7-Amino Clonazepam Ur Nordiazepam Confirm U OH-ethylflurazepam U Lorazepam Cnf GC/MS U Oxazepam Confm GC/MS Ur Temazepam Confirm U OH-Triazolam Confirm U OH-Midazolam Confirm Ur Cocaine Metabolite U Marijuana (THC) Screen U Marijuana THC Carboxy Drug Screen Comment IgG NATHALIE Screen Anti-Smooth Muscle Ab Adenovirus (PCR) Anaplasma Smear Babesia Smear Babesia microti DNA PCR B. pertussis DNA (PCR) B.parapertussis DNA PCR C. pneumoniae DNA (PCR) Coronavirus OC43 (PCR) Coronavirus HKU1 (PCR) Coronavirus 229E (PCR) SARS-CoV-2 (PCR) Coronavirus NL63 (PCR) Hepatitis A IgM Ab Hep Bs Antigen Hep Bs Ag Confirmation Hep B Core IgM Ab Hepatitis C Ab (EIA) Hep C Ab Signal/Cutoff Monoscreen Human Metapneumovir PCR Influenza Type A (PCR) Influenza Type B (PCR) M. pneumoniae (PCR) Parainfluenza 1 (PCR) Parainfluenza 2 (PCR) Parainfluenza 3 (PCR) Parainfluenza 4 (PCR) RSV (PCR) Entero/Rhino (PCR) Blood Parasites ID Cancelled 05/10/22 05/11/22 05/11/22 10:05 07:54 07:54 WBC 11.32 H RBC 4.22 Hgb 13.0 Hct 36.0 L MCV 85.3 MCH 30.8 MCHC 36.1 H RDW Std Deviation 38.7 RDW Coeff of Derik 12.6 Plt Count 258 MPV 10.9 Immature Gran % (Auto) 0.4 Neut % (Auto) 66.3 Lymph % (Auto) 25.3 [place] % (Auto) 6.4 Eos % (Auto) 1.4 Baso % (Auto) 0.2 Neut # (Auto) 7.51 H Lymph # (Auto) 2.86 [place] # (Auto) 0.72 H Eos # (Auto) 0.16 Baso # (Auto) 0.02 Immature Gran # (Auto) 0.05 Absolute Nucleated RBC Nucleated RBC % (auto) Neutrophils % (Manual) Band Neutrophils % Lymphocytes % (Manual) Prolymphocyte % Reactive Lymphs % (Man) Monocytes % (Manual) Eosinophils % (Manual) Basophils % (Manual) Metamyelocytes % (Man) Myelocytes % (Man) Promyelocytes % (Man) Blast Cells % (Manual) Plasma Cell % (Manual) Other Cells % Nucleated RBC % Neutrophils # (Manual) Band Neutrophils # Total Absolute Neuts Lymphocytes # (Manual) Prolymphocyte # Reactive Lymphs # Total Abs Lymphocytes Monocytes # (Manual) Eosinophils # (Manual) Basophils # (Manual) Metamyelocytes # (Man) Myelocytes # (Manual) Promyelocytes # (Man) Blast Cells # (Man) Plasma Cell # (Manual) Other Cells # Nucleated RBCs # (Man) Hypersegmented Neuts Hyposegmented Neuts Hypogranular Neuts Large Granular Lymphs # Lrg Granular Lymphs Hairy Cells Smudge Cells Toxic Granulation Toxic Vacuolation Dohle Bodies Ilir Rods Platelet Estimate Hypogranular Platelets Clumped Platelets Giant Platelets Platelet Satelliting RBC Morphology Polychromasia Hypochromasia Poikilocytosis Basophilic Stippling Anisocytosis Microcytosis Macrocytosis Spherocytes Pappenheimer Bodies Sickle Cells Target Cells Tear Drop Cells Ovalocytes Stomatocytes Olivares[place] Bodies Echinocytes Acanthocytes (Spur) Rouleaux RBC Agglutinates Schistocytes Sezary Cell PT 11.7 INR 1.1 Sodium Potassium Chloride Carbon Dioxide Anion Gap BUN Creatinine Est Cr Clr Drug Dosing Est GFR ( Amer) Est GFR (Non-Af Amer) BUN/Creatinine Ratio Glucose Calcium Total Bilirubin Direct Bilirubin AST ALT Alkaline Phosphatase C-Reactive Protein Total Protein Albumin Globulin Albumin/Globulin Ratio Ceruloplasmin Lipase TSH Free T4 HCG, Quant Urine Color Urine Appearance Urine pH Ur Specific [place] Urine Protein Urine Glucose (UA) Urine Ketones Urine Blood Urine Nitrite Urine Bilirubin Urine Urobilinogen Ur Leukocyte Esterase Urine RBC Urine WBC Ur Epithelial Cells Urine Bacteria Urine Mucus Urine Opiates Screen Ur Methadone, Qual Acetaminophen Urine Barbiturates Ur Phencyclidine (PCP) U Amphetamin/Meth Scrn MDMA (Ecstasy) Screen U OH-Alprazolam Confrm U Benzodiazepines Scrn 7-Amino Clonazepam Ur Nordiazepam Confirm U OH-ethylflurazepam U Lorazepam Cnf GC/MS U Oxazepam Confm GC/MS Ur Temazepam Confirm U OH-Triazolam Confirm U OH-Midazolam Confirm Ur Cocaine Metabolite U Marijuana (THC) Screen U Marijuana THC Carboxy Drug Screen Comment IgG 1104.6 NATHALIE Screen Anti-Smooth Muscle Ab Adenovirus (PCR) Anaplasma Smear Babesia Smear Babesia microti DNA PCR B. pertussis DNA (PCR) B.parapertussis DNA PCR C. pneumoniae DNA (PCR) Coronavirus OC43 (PCR) Coronavirus HKU1 (PCR) Coronavirus 229E (PCR) SARS-CoV-2 (PCR) Coronavirus NL63 (PCR) Hepatitis A IgM Ab Hep Bs Antigen Hep Bs Ag Confirmation Hep B Core IgM Ab Hepatitis C Ab (EIA) Hep C Ab Signal/Cutoff Monoscreen Human Metapneumovir PCR Influenza Type A (PCR) Influenza Type B (PCR) M. pneumoniae (PCR) Parainfluenza 1 (PCR) Parainfluenza 2 (PCR) Parainfluenza 3 (PCR) Parainfluenza 4 (PCR) RSV (PCR) Entero/Rhino (PCR) Blood Parasites ID 05/11/22 05/12/22 05/12/22 07:54 06:00 06:00 WBC 14.28 H RBC 4.67 Hgb 14.2 Hct 39.3 MCV 84.2 MCH 30.4 MCHC 36.1 H RDW Std Deviation 36.4 RDW Coeff of Derik 12.1 Plt Count 273 MPV 10.5 Immature Gran % (Auto) Neut % (Auto) Lymph % (Auto) Rabun % (Auto) Eos % (Auto) Baso % (Auto) Neut # (Auto) Lymph # (Auto) Rabun # (Auto) Eos # (Auto) Baso # (Auto) Immature Gran # (Auto) Absolute Nucleated RBC Nucleated RBC % (auto) Neutrophils % (Manual) Band Neutrophils % Lymphocytes % (Manual) Prolymphocyte % Reactive Lymphs % (Man) Monocytes % (Manual) Eosinophils % (Manual) Basophils % (Manual) Metamyelocytes % (Man) Myelocytes % (Man) Promyelocytes % (Man) Blast Cells % (Manual) Plasma Cell % (Manual) Other Cells % Nucleated RBC % Neutrophils # (Manual) Band Neutrophils # Total Absolute Neuts Lymphocytes # (Manual) Prolymphocyte # Reactive Lymphs # Total Abs Lymphocytes Monocytes # (Manual) Eosinophils # (Manual) Basophils # (Manual) Metamyelocytes # (Man) Myelocytes # (Manual) Promyelocytes # (Man) Blast Cells # (Man) Plasma Cell # (Manual) Other Cells # Nucleated RBCs # (Man) Hypersegmented Neuts Hyposegmented Neuts Hypogranular Neuts Large Granular Lymphs # Lrg Granular Lymphs Hairy Cells Smudge Cells Toxic Granulation Toxic Vacuolation Dohle Bodies Ilir Rods Platelet Estimate Hypogranular Platelets Clumped Platelets Giant Platelets Platelet Satelliting RBC Morphology Polychromasia Hypochromasia Poikilocytosis Basophilic Stippling Anisocytosis Microcytosis Macrocytosis Spherocytes Pappenheimer Bodies Sickle Cells Target Cells Tear Drop Cells Ovalocytes Stomatocytes Olivares[place] Bodies Echinocytes Acanthocytes (Spur) Rouleaux RBC Agglutinates Schistocytes Sezary Cell PT INR Sodium 138 133 L Potassium 3.2 L 3.6 Chloride 107 103 Carbon Dioxide 26 23 Anion Gap 5 7 BUN 7 4 L Creatinine 0.59 L 0.42 L Est Cr Clr Drug Dosing 153.8 216.0 Est GFR ( Amer) 143.6 > 150.0 Est GFR (Non-Af Amer) 123.9 138.5 BUN/Creatinine Ratio 11.9 9.5 L Glucose 91 78 Calcium 8.0 L 8.5 Total Bilirubin 2.6 H D 2.2 H Direct Bilirubin AST 168 H 457 H ALT 778 H 1190 H Alkaline Phosphatase 48 60 C-Reactive Protein Total Protein 5.4 L 6.1 Albumin 3.0 L 3.4 Globulin 2.4 L 2.7 Albumin/Globulin Ratio 1.3 1.3 Ceruloplasmin Lipase TSH Free T4 HCG, Quant Urine Color Urine Appearance Urine pH Ur Specific [place] Urine Protein Urine Glucose (UA) Urine Ketones Urine Blood Urine Nitrite Urine Bilirubin Urine Urobilinogen Ur Leukocyte Esterase Urine RBC Urine WBC Ur Epithelial Cells Urine Bacteria Urine Mucus Urine Opiates Screen Ur Methadone, Qual Acetaminophen Urine Barbiturates Ur Phencyclidine (PCP) U Amphetamin/Meth Scrn MDMA (Ecstasy) Screen U OH-Alprazolam Confrm U Benzodiazepines Scrn 7-Amino Clonazepam Ur Nordiazepam Confirm U OH-ethylflurazepam U Lorazepam Cnf GC/MS U Oxazepam Confm GC/MS Ur Temazepam Confirm U OH-Triazolam Confirm U OH-Midazolam Confirm Ur Cocaine Metabolite U Marijuana (THC) Screen U Marijuana THC Carboxy Drug Screen Comment IgG NATHALIE Screen Anti-Smooth Muscle Ab Adenovirus (PCR) Anaplasma Smear Babesia Smear Babesia microti DNA PCR B. pertussis DNA (PCR) B.parapertussis DNA PCR C. pneumoniae DNA (PCR) Coronavirus OC43 (PCR) Coronavirus HKU1 (PCR) Coronavirus 229E (PCR) SARS-CoV-2 (PCR) Coronavirus NL63 (PCR) Hepatitis A IgM Ab Hep Bs Antigen Hep Bs Ag Confirmation Hep B Core IgM Ab Hepatitis C Ab (EIA) Hep C Ab Signal/Cutoff Monoscreen Human Metapneumovir PCR Influenza Type A (PCR) Influenza Type B (PCR) M. pneumoniae (PCR) Parainfluenza 1 (PCR) Parainfluenza 2 (PCR) Parainfluenza 3 (PCR) Parainfluenza 4 (PCR) RSV (PCR) Entero/Rhino (PCR) Blood Parasites ID 05/12/22 05/13/22 05/13/22 09:17 06:25 06:25 WBC 9.02 RBC 4.21 Hgb 12.7 Hct 35.8 L MCV 85.0 MCH 30.2 MCHC 35.5 RDW Std Deviation 37.7 RDW Coeff of Derik 12.2 Plt Count 229 MPV 10.7 Immature Gran % (Auto) Neut % (Auto) Lymph % (Auto) Rabun % (Auto) Eos % (Auto) Baso % (Auto) Neut # (Auto) Lymph # (Auto) Rabun # (Auto) Eos # (Auto) Baso # (Auto) Immature Gran # (Auto) Absolute Nucleated RBC Nucleated RBC % (auto) Neutrophils % (Manual) Band Neutrophils % Lymphocytes % (Manual) Prolymphocyte % Reactive Lymphs % (Man) Monocytes % (Manual) Eosinophils % (Manual) Basophils % (Manual) Metamyelocytes % (Man) Myelocytes % (Man) Promyelocytes % (Man) Blast Cells % (Manual) Plasma Cell % (Manual) Other Cells % Nucleated RBC % Neutrophils # (Manual) Band Neutrophils # Total Absolute Neuts Lymphocytes # (Manual) Prolymphocyte # Reactive Lymphs # Total Abs Lymphocytes Monocytes # (Manual) Eosinophils # (Manual) Basophils # (Manual) Metamyelocytes # (Man) Myelocytes # (Manual) Promyelocytes # (Man) Blast Cells # (Man) Plasma Cell # (Manual) Other Cells # Nucleated RBCs # (Man) Hypersegmented Neuts Hyposegmented Neuts Hypogranular Neuts Large Granular Lymphs # Lrg Granular Lymphs Hairy Cells Smudge Cells Toxic Granulation Toxic Vacuolation Dohle Bodies Ilir Rods Platelet Estimate Hypogranular Platelets Clumped Platelets Giant Platelets Platelet Satelliting RBC Morphology Polychromasia Hypochromasia Poikilocytosis Basophilic Stippling Anisocytosis Microcytosis Macrocytosis Spherocytes Pappenheimer Bodies Sickle Cells Target Cells Tear Drop Cells Ovalocytes Stomatocytes Olivares[place] Bodies Echinocytes Acanthocytes (Spur) Rouleaux RBC Agglutinates Schistocytes Sezary Cell PT INR Sodium 136 Potassium 4.0 Chloride 109 H Carbon Dioxide 24 Anion Gap 3 BUN 7 Creatinine 0.53 L Est Cr Clr Drug Dosing 171.2 Est GFR ( Amer) 148.7 Est GFR (Non-Af Amer) 128.3 BUN/Creatinine Ratio 13.2 Glucose 78 Calcium 8.0 L Total Bilirubin 1.2 H Direct Bilirubin AST 298 H ALT 1036 H Alkaline Phosphatase 58 C-Reactive Protein Total Protein 5.2 L Albumin 2.9 L Globulin 2.3 L Albumin/Globulin Ratio 1.3 Ceruloplasmin Lipase TSH 0.074 L Free T4 1.60 HCG, Quant Urine Color Urine Appearance Urine pH Ur Specific [place] Urine Protein Urine Glucose (UA) Urine Ketones Urine Blood Urine Nitrite Urine Bilirubin Urine Urobilinogen Ur Leukocyte Esterase Urine RBC Urine WBC Ur Epithelial Cells Urine Bacteria Urine Mucus Urine Opiates Screen Ur Methadone, Qual Acetaminophen Urine Barbiturates Ur Phencyclidine (PCP) U Amphetamin/Meth Scrn MDMA (Ecstasy) Screen U OH-Alprazolam Confrm U Benzodiazepines Scrn 7-Amino Clonazepam Ur Nordiazepam Confirm U OH-ethylflurazepam U Lorazepam Cnf GC/MS U Oxazepam Confm GC/MS Ur Temazepam Confirm U OH-Triazolam Confirm U OH-Midazolam Confirm Ur Cocaine Metabolite U Marijuana (THC) Screen U Marijuana THC Carboxy Drug Screen Comment IgG NATHALIE Screen Anti-Smooth Muscle Ab Adenovirus (PCR) Anaplasma Smear Babesia Smear Babesia microti DNA PCR B. pertussis DNA (PCR) B.parapertussis DNA PCR C. pneumoniae DNA (PCR) Coronavirus OC43 (PCR) Coronavirus HKU1 (PCR) Coronavirus 229E (PCR) SARS-CoV-2 (PCR) Coronavirus NL63 (PCR) Hepatitis A IgM Ab Hep Bs Antigen Hep Bs Ag Confirmation Hep B Core IgM Ab Hepatitis C Ab (EIA) Hep C Ab Signal/Cutoff Monoscreen Human Metapneumovir PCR Influenza Type A (PCR) Influenza Type B (PCR) M. pneumoniae (PCR) Parainfluenza 1 (PCR) Parainfluenza 2 (PCR) Parainfluenza 3 (PCR) Parainfluenza 4 (PCR) RSV (PCR) Entero/Rhino (PCR) Blood Parasites ID
[2022-05-13 23:57] LABS: CMV IgG Antibody <0.60 U/mL; CMV IgM Antibody <30.00 AU/mL; Herpes Simplex Ab IgG-1 <0.90 index; Herpes Simplex Ab IgG-2 3.68 index
[2022-05-16 18:17] LABS: EBV Nuclear Ag Antibody >600.00 U/mL
--- NOTE | 2022-05-19 10:39 | Discharge Summary (DS) ---
DATE OF ADMISSION: ____. DATE OF DISCHARGE: 05/13/2022. REASON FOR ADMISSION AND HOSPITAL COURSE: The patient is a 27-year-old female, G1, P0, at 8+ weeks' gestation with twins presents with acutely elevated liver enzymes, nausea and vomiting and elevated b lood pressure on initial exam. She tested positive for cannabis. GI consult and hospital consult we re obtained. The patient received IV fluids. Over her course of stay in the hospital, her liver enz ymes have trended down. She improved gradually, tolerating her diet. She was discharged home on 05/13/2022 in stable condition. Home going instructions were given. Andrez barahona for discharge. Follow up in 2 weeks for evaluation in the office. Regular diet on discharge. CONDITION ON DISCHARGE: Stable. Job ID: [id number]
== END 2022-05-13 12:46 | disposition home or self-care (01) | DRG 832 ==
LOC: ED 14:25 → 4E1 22:33

== ENCOUNTER 2025-02-12 18:19 | Inpatient (IN) ==
--- NOTE | 2025-02-12 19:00 | Emergency Department Note ---
Impression & Plan Cyclic vomiting syndrome, Acute hyponatremia, Acute hypokalemia, Acute dehydration, Prolonged QT interval, Tachycardia, Hypophosphatemia ED Provider Note NAME: KEL PADILLA AGE: 29 SEX: F : 1995 ARRIVES VIA: Walk-In INFORMANT: Patient, partner ED PROVIDER(S): Eddi Pink DO CHIEF COMPLAINT: vomiting HPI: This is a 29-year-old female with the PMHx of cannabis induced cyclic vomiting syndrome, HTN, obesity, anxiety, and GERD presenting to [facility] for further evaluation of severe vomiting. Patient is accompanied by partner who provide additional history. Patient is reporting 2 weeks of worsening vomiting. She states this is consistent with prior episodes of cyclic vomiting syndrome. She states this is from medical marijuana use. Patient states she has not utilized medical marijuana in the last 2 weeks. She reports severe deficits in p.o. intake. Patient states she feels better when she is in warm water or warm shower. Patient denies significant abdominal pain but slightly crampy from significant amounts of vomiting. I did see the patient in the emergency room overnight. I recommend she return as she has failed to improve as an outpatient and worried that her electrolyte derangements were worsening. She was agreeable to this and presented. She states that she needs significant medications to help with her anxiety as well as her nausea and vomiting or she will unable to be comfortable to stay. I discussed that we can provide medications to ensure her comfort while managing her symptoms. I again discussed with her the life- threatening nature of her electrolyte derangements. They deny fever or chills. No cough or congestion. Denies chest pain or palpitations. No shortness of breath. She denies the possibility of . No urinary complaints. No recent changes in bowel movements. Patient denies recent changes in medications or OTC supplements. Patient offers no other complaints, today. ADDITIONAL HISTORY OBTAINED: Per HPI Chronic Medical/Social Conditions Affecting Care: Per HPI PAST MEDICAL HISTORY: See Below PAST SURGICAL HISTORY: See Below FAMILY HISTORY: See Below SOCIAL HISTORY: See Below HOME MEDICATIONS: See Below ALLERGIES: See Below VITALS: See Below PHYSICAL EXAMINATION: GENERAL: Alert, well developed, well nourished, no acute distress HEAD: Normocephalic, atraumatic EYES: EOM's intact, sclera anicteric, conjunctiva clear OROPHARYNX: Airway patent and mucous membranes dry LUNGS: No respiratory distress, normal respiratory rate and effort HEART: Well perfused, tachycardic rate ABDOMEN: Abdomen non-distended SKIN: Normal color, dry EXTREMITIES: No gross deformities, no edema NEURO: Alert, oriented x3, appropriate for age, moves all four extremities, normal speech MEDICAL DECISION MAKING: Differential diagnoses includes but not limited to cannabis induced cyclic vomiting syndrome, electrolyte derangements, dehydration, ACS, dysrhythmia, intra-abdominal pathology including appendicitis or hepatobiliary disease, pancreatitis In summary, this is a 29 year old female who presented with severe nausea and vomiting in the setting of cyclic vomiting syndrome. Differential as above. Nursing notes and pertinent past medical records reviewed. Vital signs reviewed and the patient is initially hypotensive and tachycardic. Patient's blood pressure did improve rapidly with IV fluid resuscitation. History and presentation revealed to prolonged history of cyclic vomiting syndrome and consistent with this. Did recently evaluate the patient in the emergency department and ultimately let her go home at her request. I did discuss with her that if she failed to improve, she would need to return immediately to the emergency department. Physical examination revealed as above. As a result of my initial evaluation, IV access was established and the patient was placed on CCRM. Therapeutics ordered include IVFR and adjuvants for antiemetics. Diagnostics interpreted by me include EKG and cardiac monitoring as listed below: -Cardiac Monitoring: An order was placed for continuous cardiac monitoring. The monitor shows a rate of 90-120s with regular rhythm. -ECG: Sinus tachycardia at a rate of [address] segment changes to suggest STEMI. QTc prolongation at 521 ms. Patient completed laboratory studies and imaging. Results independently interpreted by me are her leukocytosis is improving from previous. She is still hyponatremic. Minimal anion gap. Hypokalemia noted again. She does have evidence of acute dehydration. Hypophosphatemia also noted. Magnesium was normal. CRP was minimally elevated with a normal procalcitonin. I do again favor that the patient's symptoms are likely related to her significant GI losses and cyclic vomiting syndrome rather than infectious pathology. Do not feel that further imaging with CT abdomen/pelvis is necessary. The patient was managed with IV fluid resuscitation and antiemetics. Given QTc prolongation, other adjunct of therapies for nausea were chosen. She was given IV Ativan, scopolamine patch as well as dexamethasone. Ultimately, the decision was made to admit the patient for severe dehydration and electrolyte derangements in the setting of cyclic vomiting syndrome. I discussed the case with the hospitalist service via telephone/Tiger[employer] and they are agreeable to admit the patient to their services. Based on the above, including the patient's age, coexisting illnesses, labs, imaging, and exam findings the decision to treat as an inpatient. I discussed the patient with the hospitalist team who recommended admission to their services. They received the medications, treatments, interventions indicated above and their condition remained guarded. I discussed my findings with the patient and their family and they understand and agree with the treatment plan. All patient / family questions were answered to their satisfaction. Consults/Care Managements Discussions: Per MDM ER treatment provided: See above Procedures:none Critical Care: None The chart was completed utilizing FlipKey Speech voice recognition software. Grammatical errors, random word insertions, pronoun errors, and incomplete sentences are an occasional consequence of this system due to software limitations, ambient noise, and hardware issues. Any formal questions or concerns about the content, text, or information contained within the body of this dictation should be directly addressed to the physician for clarification. Past Med/Surg History Problem List (Updated 02/12/25 @ 23:05 by Eddi Pink DO) Hypophosphatemia (Acute) Tachycardia (Acute) Prolonged Q-T interval on ECG (Acute) Prolonged QT interval Electrolyte abnormality Acute dehydration (Acute) Acute hypokalemia (Acute) Acute hyponatremia (Acute) Cyclic vomiting syndrome (Acute) Abnormal laboratory test result (Acute) Nausea & vomiting (Acute) Dehydration (Acute) Multiple pulmonary nodules Transaminitis (Acute) Mood disorder Cannabinoid hyperemesis syndrome (Acute) Cyclic vomiting syndrome (Acute) Anxiety GERD (gastroesophageal reflux disease) Anxiety BMI 45.0-49.9, adult Bipolar disorder, unspecified Depression Morbid obesity Oral contraceptive use Panic attacks Hypertension (Acute) Medical History Cannabinoid hyperemesis syndrome "comes and goes, no issues in over 1 year" History of hypertension no current meds or issues Mood disorder History of panic attacks Hx of gastroesophageal reflux (GERD) no current meds, no recent issues Depression Bipolar disorder Anxiety History of hemoptysis many years ago, no current issues Surgical History Status post open reduction and internal fixation (ORIF) of fracture (10/2023) R distal radius History of esophagogastroduodenoscopy (EGD) Hx of tubal ligation History of section, classical History of facial surgery History of tonsillectomy and adenoidectomy Family History Sister Anxiety Depression Autism Father Hypertension Anxiety Mother Breast cancer, Onset Age: 55 Anxiety Denies family history of Ovarian cancer Prostate cancer Myocardial infarction Colorectal cancer Social History Smoking Status: Never smoker Second Hand Exposure: Yes (hx); Do You Dip or Chew Tobacco: No; Hx Alcohol Use: Yes Hx Substance Use: Yes (medical card) Non-Prescribed Medications: Marijuana Last Used Substance Other:: daily use Substance Use Type Other:: states has not used since positive test Preferred Language: Northern Irish Communication Ability: Effective Visual Impairment: No Limitations Hearing Ability: Normal Memory Care Program Resident Required: No Beliefs That Will Affect Care: None marital status: Single Current Living Situation: Family Current Living Situation Comment: parents live close by current occupational status: employed current occupation: [employer] How many Children do You have: 2 How many Children do You have Comment: twin sons Feels Safe at Home: Yes Childhood Exposure to Second-Hand Smoke: No Diet: regular Diet Comment: regular caffeine: No during the past year weight has: decreased > 10 lbs Dental Care, Regularly: No Physical Activity Frequency: Daily Seatbelt Use: always Sunscreen Use: Yes Assistive Devices: Contacts and Glasses Allergies Allergies Allergy/AdvReac Type Severity Reaction Status Date / Time No Known Allergies Allergy Verified 02/11/25 22:31 Home Meds Home Medications Medication Instructions Recorded Confirmed No Known Home Medications 02/11/25 02/12/25 Results & Data (ED) Vital Signs Vital Signs - 24 hr 02/12/25 18:25 02/12/25 18:49 02/12/25 19:23 Temperature 37.2 C Temperature Source Skin Pulse Rate 122 H 115 H Pulse Rate [Finger] 97 H Respiratory Rate 20 16 Respiratory Effort / Characteristics Non-Labored Spontaneous Non-Labored Spontaneous Respiratory Depth Normal Normal Respiratory Pattern Regular Regular Blood Pressure 87/58 L Blood Pressure [Left Arm] 149/124 H Blood Pressure Mean 67 Blood Pressure Mean [Left Arm] 132 Pulse Oximetry 100 98 Oxygen Delivery Method Room Air Room Air Sepsis Recent Fever Within 48 Hours No Sepsis New/Unexplained Change in Mental Status N/A Sepsis Action Taken by Nursing Physician Notified 02/12/25 19:48 Temperature Temperature Source Pulse Rate 96 H Pulse Rate [Finger] Respiratory Rate 18 Respiratory Effort / Characteristics Respiratory Depth Respiratory Pattern Blood Pressure 155/122 H Blood Pressure [Left Arm] Blood Pressure Mean 133 Blood Pressure Mean [Left Arm] Pulse Oximetry 99 Oxygen Delivery Method Sepsis Recent Fever Within 48 Hours Sepsis New/Unexplained Change in Mental Status Sepsis Action Taken by Nursing Laboratory Data 02/12/25 18:59 02/12/25 18:59 Lab Results 02/12/25 02/12/25 Range/Units 18:59 20:27 WBC 14.17 H (4.8-10.8) K/ul RBC 5.51 H (4.20-5.40) M/uL Hgb 15.8 (12.0-16.0) g/dl Hct 43.1 (37.0-47.0) % MCV 78.2 L (80.0-100.0) fL MCH 28.7 (25.0-34.0) pg MCHC 36.7 H (32.0-36.0) g/dL RDW Std Deviation 33.8 L (36.4-46.3) fL RDW Coeff of Derik 12.0 (11.5-14.5) % Plt Count 391 (130-400) K/uL MPV 11.1 (9.4-12.4) fL Immature Gran % (Auto) 0.4 % Neut % (Auto) 88.9 % Lymph % (Auto) 6.9 % Clark % (Auto) 3.5 % Eos % (Auto) 0.0 % Baso % (Auto) 0.3 % Neut # (Auto) 12.60 H (1.40-6.50) K/uL Lymph # (Auto) 0.98 L (1.20-3.40) K/uL Clark # (Auto) 0.49 (0.11-0.59) K/uL Eos # (Auto) 0.00 (0.00-0.50) K/uL Baso # (Auto) 0.04 (0.00-0.20) K/uL Immature Gran # (Auto) 0.06 (0.01-0.20) K/uL Sodium 130 L (136-145) mmol/L Potassium 3.0 L (3.5-5.1) mmol/L Chloride 91 L (98-107) mmol/L Carbon Dioxide 26 (21-32) mmol/L Anion Gap 13 H (3-11) BUN 10 (6-23) mg/dl Creatinine 0.83 (0.6-1.2) mg/dl Est Cr Clr Drug Dosing 104.6 ml/min eGFR 96.60 BUN/Creatinine Ratio 12.0 (10-20) Glucose 108 H (70-99(Fasting)) mg/dl Calcium 9.2 (8.6-10.3) mg/dl Phosphorus 1.7 L (2.5-4.9) mg/dl Magnesium 2.3 (1.7-2.4) mg/dl Total Bilirubin 2.4 H (0.2-1.0) mg/dl AST 22 (13-39) U/L ALT 20 (7-52) U/L Alkaline Phosphatase 68 (34-104) U/L C-Reactive Protein 1.39 H (0-0.5) mg/dl Total Protein 8.4 H (6.0-8.3) gm/dl Albumin 4.5 (3.4-5.0) gm/dl Globulin 3.9 (2.5-4.0) gm/dl Albumin/Globulin Ratio 1.2 (0.9-2) Procalcitonin < 0.02 (0-0.5) ng/ml Urine Color Yellow Urine Appearance Cloudy A (Clear) Urine pH >= 9.0 H (4.5-7.5) Ur Specific [place] 1.011 (1.000-1.030) Urine Protein Negative (Negative) Urine Glucose (UA) Negative (Negative) Urine Ketones 2+ H (Negative) Urine Blood 2+ H (Negative) Urine Nitrite Negative (Negative) Urine Bilirubin Negative (Negative) Urine Urobilinogen Negative (Negative) Ur Leukocyte Esterase Negative (Negative) Urine WBC (Auto) 0-5 (0-5) /hpf Urine RBC (Auto) 0-2 (0-2) /hpf U Hyaline Cast (Auto) 0-2 (0-2) /lpf U Epithel Cells (Auto) 0-2 (0-2) /hpf Urine Bacteria (Auto) None Seen (None Seen) Urine Comment Administered Medications Discontinued Medications Dexamethasone (Dexamethasone Sod Inj 4 Mg/Ml Vial) 6 mg IV NOW STA Stop: 02/12/25 18:46 Last Admin: 02/12/25 19:18 Dose: 6 mg Documented By: YOSEF Parenteral Electrolytes (Plasma-Lyte A Ph 7.4) 1,000 mls @ 999 mls/hr IV .Q1H1M ONE Stop: 02/12/25 19:34 Last Infusion: 02/12/25 20:26 Dose: Infused Documented By: Admin: 02/12/25 19:09 Dose: 999 mls/hr Documented By: YOSEF Potassium Chloride (K Jeff / Wtr) 10 meq in 100 mls @ 100 mls/hr IV Q1H MANDI Stop: 02/12/25 22:59 Last Infusion: 02/12/25 22:20 Dose: Infused Documented By: Admin: 02/12/25 21:35 Dose: 100 mls/hr Documented By: Infusion: 02/12/25 21:31 Dose: Infused Documented By: Admin: 02/12/25 20:31 Dose: 100 mls/hr Documented By: YOSEF Famotidine (Pepcid 20mg Iv Push) 20 mg in 5 mls @ 2.5 mls/min IV NOW STA Stop: 02/12/25 20:51 Last Admin: 02/12/25 20:58 Dose: 2.5 mls/min Documented By: YOSEF Pantoprazole Sodium (Protonix) 40 mg in 10 mls @ 5 mls/min IV NOW ONE Stop: 02/12/25 20:51 Last Admin: 02/12/25 20:58 Dose: 5 mls/min Documented By: YOSEF Lorazepam (Lorazepam 1 Mg/1 Ml Syr Ed Inj Use) 1 mg IV ONE STA Stop: 02/12/25 18:29 Last Admin: 02/12/25 19:15 Dose: Not Given Documented By: YOSEF Lorazepam (Lorazepam 1 Mg/1 Ml Syr Ed Inj Use) 2 mg IV ONE STA Stop: 02/12/25 18:35 Last Admin: 02/12/25 19:07 Dose: 2 mg Documented By: LENKA Miscellaneous (Check Scopolamine Patch Placement) 1 each N/A QS MANDI Stop: 02/15/25 05:59 Last Admin: 02/12/25 19:23 Dose: Not Given Documented By: YOSEF Scopolamine (Scopolamine 1 Mg/72 Hr Tdsy Patch) 1 patch TD ONE ONE Stop: 02/12/25 18:47 Last Admin: 02/12/25 19:22 Dose: 1 patch Documented By: YOSEF Discharge Plan Visit Data Chief Complaint: Vomiting Stated Complaint: CHRONIC VOMITING PAST 2 WEEKS, REF BY DR PINK ED Provider: Eddi Pink Discharge Problem: Cyclic vomiting syndrome, Acute hyponatremia, Acute hypokalemia, Acute dehydration, Prolonged QT interval, Tachycardia, Hypophosphatemia Patient Disposition: Admitted As Inpatient Condition: Serious Discharge Instructions Interventions: ED Discharge Assessment Last Done: 02/12/25 21:58
[2025-02-12] MEDS: LORazepam 1 MG/1 ML SYR ED Inj Use IV STA ×2 (19:07→19:15)
[2025-02-12] MEDS: PLASMA-LYTE A 1,000 ML IV ONE (19:09)
[2025-02-12 19:16] LABS: Hematocrit (blood only) 43.1 % (37.0-47.0); Hemoglobin 15.8 g/dl (12.0-16.0); Immature Granulocytes # (auto) 0.06 K/uL (0.01-0.20); Immature Granulocytes % (auto) 0.4 %; Mean Corpuscular Hemoglobin 28.7 pg (25.0-34.0); Mean Corpuscular Volume 78.2 fL (80.0-100.0); Platelet Count 391 K/uL (130-400); RDW Standard Deviation 33.8 fL (36.4-46.3); Red Blood Count 5.51 M/uL (4.20-5.40); White Blood Count 14.17 K/ul (4.8-10.8)
[2025-02-12] MEDS: DEXAMETHASONE SOD INJ 4 MG/ML VIAL IV STA (19:18)
[2025-02-12] MEDS: SCOPOLAMINE 1 MG/72 HR TDSY PATCH TD ONE (19:22)
[2025-02-12] MEDS: CHECK SCOPOLAMINE PATCH PLACEMENT SCH (19:23)
[2025-02-12 19:33] LABS: Alanine Aminotransferase 20.0 U/L (7-52); Albumin Globulin Ratio 1.2 (0.9-2); Albumin Level 4.5 gm/dl (3.4-5.0); Alkaline Phosphatase 68.0 U/L (34-104); Anion Gap 13.0 (3-11); Bilirubin,Total 2.4 mg/dl (0.2-1.0); Blood Urea Nitrogen 10.0 mg/dl (6-23); Calcium 9.2 mg/dl (8.6-10.3); Carbon Dioxide 26.0 mmol/L (21-32); Chloride 91.0 mmol/L (98-107); Creatinine Clr Calc Pharmacy 104.6 ml/min; Globulin 3.9 gm/dl (2.5-4.0); Glucose 108.0 mg/dl (70-99(Fasting)); Magnesium 2.3 mg/dl (1.7-2.4); Potassium 3.0 mmol/L (3.5-5.1); Sodium 130.0 mmol/L (136-145); Total Protein 8.4 gm/dl (6.0-8.3)
[2025-02-12] MEDS: POTASSIUM CHLORIDE / WTR 10 MEQ/100 ML PLCT IV SCH (20:31)
--- NOTE | 2025-02-12 20:40 | History & Physical Report ---
Date of Service February 12, 2025 Assessment & Plan (1) Cyclic vomiting syndrome: (2) Electrolyte abnormality: (3) Prolonged QT interval: (4) Hypertension: (5) Depression: Plan 29yo female with history of HTN, Depression and cyclic vomiting syndrome presenting with two weeks of ongoing nausea and multiple episodes of vomiting as well as po intolerance. Patient appears dehydrated on physical exam and laboratory findings as well as multiple electrolyte derangements including hypokalemia, hypophosphatemia and hyponatremia. Prolonged QT interval noted on EKG #Cyclic vomiting syndrome/Dehydration/Electrolyte abnormalities - with ongoing nausea and vomiting x 2 weeks, po intolerance. Patient appears dehydrated on exam, electrolyte abnormalities. She does have medicinal marijuana at home but not has used this for the last two weeks. -Admit to medical with telemetry - monitor QTc -Continue IVF - LR at 100mL/hr x 2L ordered -Thiamine 100mg IV now and 100mg IV daily while admitted - po intolerance for the last week -Zyprexa 2.5mg IV BID as needed for nausea -Pepcid 20mg IV BID -Protonix 40mg IV daily -Potassium 30mEq ordered in the ER - will give KPhos 15mmol x 1 dose -Repeat BMP, Mg and PO4 in AM #Prolonged QTc - on prior EKGs -Cautious use of anti-emetics - Zyprexa should have minimal QT prolonging effects -Electrolyte repletion and hydration -Telemetry monitoring #Hypertension - patient not currently on any medications -Continue to monitor #Depression/Anxiety - patient currently not on any medications -Continue to monitor History of Present Illness Chief Complaint: persistent nausea, vomiting Primary Care Provider: DO Daniela Sommer Jorge is a 29yo female with history of Hypertension, Depression/Anxiety and Cyclic Vomiting Syndrome presenting with two weeks of nausea and vomiting. She reports the nausea has been persistent and she has vomited too many times to count during the day. She has had some blood streaked emesis. Mild abdominal tenderness. Poor oral intake - reports she has not been able to keep food down for the last 2 weeks. Has been having some significant heartburn symptoms as well Denies fever, chills, chest pain, cough, SOB. She has not taken any medications for nausea at home. She has medicinal marijuana at home but has not used it for the last two weeks. No additional complaints at this time. Patient was seen int he ER yesterday 02/11/25 with similar complaints. She was treated with anti-emetics and electrolytes at that time. QTc prolonged at 560 at that time. Did not wish to stay in the hospital therefore was dischaged home. In the ER patient afebrile, tachycardic and hypertensive Ongoing nausea Prolonged QTc interval noted on EKG therefore patient given Dexamethasone, Scopolamine ER Course: Ativan 2mg IV Plasmalyte x 1L Dexamethasone 6mg IV Scopalamine patch KCl 10mEq x 3 ordered Pepcid 20mg IV Protonix 40mg IV Allergies Allergy/AdvReac Type Severity Reaction Status Date / Time No Known Allergies Allergy Verified 02/11/25 22:31 Home Medications Medication Instructions Recorded Confirmed Type No Known Home Medications 02/11/25 02/12/25 History Past Med/Surg History Problem List (Updated 02/12/25 @ 21:26 by Irena Marlow DO) Prolonged QT interval Electrolyte abnormality Acute dehydration (Acute) Acute hypokalemia (Acute) Acute hyponatremia (Acute) Cyclic vomiting syndrome (Acute) Abnormal laboratory test result (Acute) Nausea & vomiting (Acute) Dehydration (Acute) Multiple pulmonary nodules Transaminitis (Acute) Mood disorder Cannabinoid hyperemesis syndrome (Acute) Cyclic vomiting syndrome (Acute) Anxiety GERD (gastroesophageal reflux disease) Anxiety BMI 45.0-49.9, adult Bipolar disorder, unspecified Depression Morbid obesity Oral contraceptive use Panic attacks Hypertension (Acute) Medical History Cannabinoid hyperemesis syndrome "comes and goes, no issues in over 1 year" History of hypertension no current meds or issues Mood disorder History of panic attacks Hx of gastroesophageal reflux (GERD) no current meds, no recent issues Depression Bipolar disorder Anxiety History of hemoptysis many years ago, no current issues Surgical History Status post open reduction and internal fixation (ORIF) of fracture (10/2023) R distal radius History of esophagogastroduodenoscopy (EGD) Hx of tubal ligation History of section, classical History of facial surgery History of tonsillectomy and adenoidectomy Family History Sister Anxiety Depression Autism Father Hypertension Anxiety Mother Breast cancer, Onset Age: 55 Anxiety Denies family history of Ovarian cancer Prostate cancer Myocardial infarction Colorectal cancer Social History Smoking Status: Never smoker Second Hand Exposure: Yes (hx); Do You Dip or Chew Tobacco: No; Hx Alcohol Use: Yes Hx Substance Use: Yes (medical card) Non-Prescribed Medications: Marijuana Last Used Substance Other:: daily use Substance Use Type Other:: states has not used since positive test Preferred Language: Guamanian Communication Ability: Effective Visual Impairment: No Limitations Hearing Ability: Normal Stake Driver Required: No Beliefs That Will Affect Care: None marital status: Single Current Living Situation: Family Current Living Situation Comment: parents live close by current occupational status: employed current occupation: [employer] How many Children do You have: 2 How many Children do You have Comment: twin sons Feels Safe at Home: Yes Childhood Exposure to Second-Hand Smoke: No Diet: regular Diet Comment: regular caffeine: No during the past year weight has: decreased > 10 lbs Dental Care, Regularly: No Physical Activity Frequency: Daily Seatbelt Use: always Sunscreen Use: Yes Assistive Devices: Contacts and Glasses Review of Systems Review of Systems: All systems reviewed & are unremarkable except as noted in HPI & below Physical Exam Physical Exam: General: patient ill in appearance, oriented x 3, nausea with ongoing dry- heaving Skin: warm, dry, intact, no rashes or lesions HEENT: NC/AT, PERRL, EOMI, anicteric sclera, conjunctiva without injection, external ear normal to inspection and nontender, nares patent, very dry mucus membranes, dentition intact, no oropharyngeal lesions, neck supple, trachea midline, no LAD, no thyromegaly, no JVD Heart: +S1/S2, regular, tachycardic, no m/r/g Lungs: equal air entry bilaterally, no rales/rhonchi/wheezes Abd: +BS, soft, NT/ND, no masses/organomegaly/ascites Ext: warm, 2+ pulses in UE/LE bilaterally, no clubbing/cyanosis or edema Neuro: nonfocal, patient AA&O x 4, speech intact, no facial droop, moving all extremities on command with equal strength 5/5 Results & Data Results & Data Vital Signs (Past 12 Hours) Vital Signs Temp Pulse Pulse Resp BP BP Pulse Ox 02/12/25 19:48 96 H 18 155/122 H 99 02/12/25 19:23 97 H 16 149/124 H 98 02/12/25 18:49 115 H 02/12/25 18:25 37.2 C 122 H 20 87/58 L 100 O2 Del Method 02/12/25 19:48 02/12/25 19:23 Room Air 02/12/25 18:49 02/12/25 18:25 Room Air Laboratory Results Laboratory Results WBC 14.17 K/ul (4.8-10.8) H 02/12/25 18:59 RBC 5.51 M/uL (4.20-5.40) H 02/12/25 18:59 Hgb 15.8 g/dl (12.0-16.0) 02/12/25 18:59 Hct 43.1 % (37.0-47.0) 02/12/25 18:59 MCV 78.2 fL (80.0-100.0) L 02/12/25 18:59 MCH 28.7 pg (25.0-34.0) 02/12/25 18:59 MCHC 36.7 g/dL (32.0-36.0) H 02/12/25 18:59 RDW Std Deviation 33.8 fL (36.4-46.3) L 02/12/25 18:59 RDW Coeff of Derik 12.0 % (11.5-14.5) 02/12/25 18:59 Plt Count 391 K/uL (130-400) 02/12/25 18:59 MPV 11.1 fL (9.4-12.4) 02/12/25 18:59 Immature Gran % (Auto) 0.4 % 02/12/25 18:59 Neut % (Auto) 88.9 % 02/12/25 18:59 Lymph % (Auto) 6.9 % 02/12/25 18:59 [place] % (Auto) 3.5 % 02/12/25 18:59 Eos % (Auto) 0.0 % 02/12/25 18:59 Baso % (Auto) 0.3 % 02/12/25 18:59 Neut # (Auto) 12.60 K/uL (1.40-6.50) H 02/12/25 18:59 Lymph # (Auto) 0.98 K/uL (1.20-3.40) L 02/12/25 18:59 [place] # (Auto) 0.49 K/uL (0.11-0.59) 02/12/25 18:59 Eos # (Auto) 0.00 K/uL (0.00-0.50) 02/12/25 18:59 Baso # (Auto) 0.04 K/uL (0.00-0.20) 02/12/25 18:59 Immature Gran # (Auto) 0.06 K/uL (0.01-0.20) 02/12/25 18:59 Sodium 130 mmol/L (136-145) L 02/12/25 18:59 Potassium 3.0 mmol/L (3.5-5.1) L 02/12/25 18:59 Chloride 91 mmol/L (98-107) L 02/12/25 18:59 Carbon Dioxide 26 mmol/L (21-32) 02/12/25 18:59 Anion Gap 13 (3-11) H 02/12/25 18:59 BUN 10 mg/dl (6-23) 02/12/25 18:59 Creatinine 0.83 mg/dl (0.6-1.2) 02/12/25 18:59 Est Cr Clr Drug Dosing 104.6 ml/min 02/12/25 18:59 eGFR 96.60 02/12/25 18:59 BUN/Creatinine Ratio 12.0 (10-20) 02/12/25 18:59 Glucose 108 mg/dl (70-99(Fasting)) H 02/12/25 18:59 Calcium 9.2 mg/dl (8.6-10.3) 02/12/25 18:59 Phosphorus 1.7 mg/dl (2.5-4.9) L 02/12/25 18:59 Magnesium 2.3 mg/dl (1.7-2.4) 02/12/25 18:59 Total Bilirubin 2.4 mg/dl (0.2-1.0) H 02/12/25 18:59 AST 22 U/L (13-39) 02/12/25 18:59 ALT 20 U/L (7-52) 02/12/25 18:59 Alkaline Phosphatase 68 U/L (34-104) 02/12/25 18:59 Total Protein 8.4 gm/dl (6.0-8.3) H 02/12/25 18:59 Albumin 4.5 gm/dl (3.4-5.0) 02/12/25 18:59 Globulin 3.9 gm/dl (2.5-4.0) 02/12/25 18:59 Albumin/Globulin Ratio 1.2 (0.9-2) 02/12/25 18:59 Procalcitonin < 0.02 ng/ml (0-0.5) 02/12/25 18:59 Urine Color Yellow 02/12/25 20: Urine Appearance Cloudy (Clear) A 02/12/25 20: Urine pH >= 9.0 (4.5-7.5) H 02/12/25 20: Ur Specific Ideal 1.011 (1.000-1.030) 02/12/25 20: Urine Protein Negative (Negative) 02/12/25 20: Urine Glucose (UA) Negative (Negative) 02/12/25 20: Urine Ketones 2+ (Negative) H 02/12/25 20: Urine Blood 2+ (Negative) H 02/12/25 20: Urine Nitrite Negative (Negative) 02/12/25 20: Urine Bilirubin Negative (Negative) 02/12/25 20: Urine Urobilinogen Negative (Negative) 02/12/25 20: Ur Leukocyte Esterase Negative (Negative) 02/12/25 20: Urine WBC (Auto) 0-5 /hpf (0-5) 02/12/25 20: Urine RBC (Auto) 0-2 /hpf (0-2) 02/12/25 20: U Hyaline Cast (Auto) 0-2 /lpf (0-2) 02/12/25 20: U Epithel Cells (Auto) 0-2 /hpf (0-2) 02/12/25 20:27 Urine Bacteria (Auto) None Seen (None Seen) 02/12/25 20: Urine Comment 02/12/25 20:27 Code Status & VTE Plan VTE Prophylaxis Plan VTE Prophylaxis will be ordered: Yes PG Care Time/CCT Total # of Minutes Spent Total Time Spent with Patient: Total time spent is greater than 50% in coordination of care (as documented) at patient's floor/unit and/or counseling patient: Coding Level of Care Code 92026 INT INP/OBS CARE 3/75MIN Diagnoses Cyclic vomiting syndrome R11.15 Electrolyte abnormality E87.8 Prolonged QT interval R94.31 Hypertension I10 Depression F32.9
[2025-02-12 20:51] LABS: Appearance Urine Cloudy (Clear); Bacteria Urine Automated None Seen (None Seen); Cast Urine Automated 0-2 /lpf (0-2); Epithelial Cell Urine Auto 0-2 /hpf (0-2); Glucose Urine UA Negative (Negative); RBC Urine Automated 0-2 /hpf (0-2); WBC Urine Automated 0-5 /hpf (0-5)
[2025-02-12] MEDS: PANTOprazole 40 MG/10 ML SYR IV ONE (20:58)
[2025-02-12] MEDS: FAMOTIDINE 20MG IV PUSH 20 MG/5 ML SYR IV STA (20:58)
[2025-02-12] MEDS ORDERED: POTASSIUM PHOS 3 MMOL/1 ML INFUSION IV STA (21:57)
[2025-02-12] MEDS ORDERED: ACETAMINOPHEN 325 MG TAB PO PRN (21:57)
[2025-02-12] MEDS: POTASSIUM PHOSPHATE 15 MMOL in SODIUM CHLORIDE 0.9% 250 ML IV ONE (23:01)
[2025-02-12] MEDS: LACTATED RINGER'S 1,000 ML IV SCH (23:01)
[2025-02-12] MEDS: THIAMINE HCL 100 MG in SYRINGE 9 ML IV STA (23:01)
[2025-02-13 04:45] LABS: Hematocrit (blood only) 37.9 % (37.0-47.0); Hemoglobin 13.6 g/dl (12.0-16.0); Mean Corpuscular Hemoglobin 28.5 pg (25.0-34.0); Mean Corpuscular Volume 79.5 fL (80.0-100.0); Platelet Count 303 K/uL (130-400); RDW Standard Deviation 34.6 fL (36.4-46.3); Red Blood Count 4.77 M/uL (4.20-5.40); White Blood Count 10.93 K/ul (4.8-10.8)
[2025-02-13 05:04] LABS: Anion Gap 7.0 (3-11); Blood Urea Nitrogen 9.0 mg/dl (6-23); Calcium 8.7 mg/dl (8.6-10.3); Carbon Dioxide 27.0 mmol/L (21-32); Chloride 99.0 mmol/L (98-107); Creatinine Clr Calc Pharmacy 117.3 ml/min; Glucose 99.0 mg/dl (70-99(Fasting)); Magnesium 2.4 mg/dl (1.7-2.4); Potassium 3.8 mmol/L (3.5-5.1); Sodium 133.0 mmol/L (136-145)
[2025-02-13] MEDS: PANTOprazole 40 MG/10 ML SYR IV SCH (08:11)
[2025-02-13] MEDS: FAMOTIDINE 20MG IV PUSH 20 MG/5 ML SYR IV SCH (08:13)
[2025-02-13] MEDS: THIAMINE HCL 100 MG in SYRINGE 9 ML IV SCH (08:18)
--- NOTE | 2025-02-13 12:32 | Electrocardiogram Report ---
Test Reason : Blood Pressure : */* mmHG Vent. Rate : 114 BPM Atrial Rate : 114 BPM P-R Int : 122 ms QRS Dur : 84 ms QT Int : 378 ms P-R-T Axes : 61 35 56 degrees QTcB Int : 521 ms Sinus tachycardia Prolonged QT Abnormal ECG When compared with ECG of 11-Feb-2025 19:19, No significant change was found Confirmed by Espinoza Ponce ([id number]) on 02/13/2025 12:32:49 PM Referred By: Eddi Pink Confirmed By: Espinoza Ponce
--- NOTE | 2025-02-13 13:30 | Hospitalist Progress Note ---
"Date of Service February 13, 2025 Assessment & Plan (1) Cyclic vomiting syndrome: (2) Electrolyte abnormality: (3) Prolonged QT interval: (4) Hypertension: (5) Depression: Pinky Daniela is a pleasant 29 y/o woman with past medical history of HTN, depression, and cyclic vomiting syndrome. She presented with two weeks of ongoing nausea, multiple episodes of vomiting, as well as po intolerance. On arrival, patient was clinically dehydrated and laboratory findings revealed multiple electrolyte derangements including hypokalemia, hypophosphatemia, and hyponatremia. A prolonged QTc interval was noted on her admission EKG. She was admitted for management of such. #Cyclic vomiting syndrome | Dehydration | Electrolyte abnormalities - with ongoing nausea and vomiting x 2 weeks, po intolerance. She does have medicinal marijuana at home but not has used this for the last two weeks. - Magnesium and phosphate now WNL after repletion - Hyponatremia improved with IV fluids, Na still mildly low at 133 - Continue thiamine 100 mg IV daily while admitted - Continue Pepcid 20 mg IV BID - Continue Protonix 40 mg IV daily - Continue Zyprexa 2.5mg IV BID as needed for nausea - Continue maintenance IV fluid until second NSS L is completed - Tolerating clear liquid diet. Advance to full liquid diet. If well- tolerates, can advance to regular diet for breakfast 02/14 #Prolonged QTc - QTc 521 on admission EKG - Cautious use of anti-emetics - Zyprexa should have minimal QT prolonging effects - Electrolytes repleted and clinically euvolemic after maintenance IV fluids and no further vomiting - Continue to monitor on telemetry #Hypertension - patient not currently on any medications - Continue to monitor #Depression/Anxiety - patient currently not on any medications - Continue to monitor VTE PPx: SCDs Dispo: Continued inpatient stay for symptom management and diet advancement. Potential discharge in next 24 hours pending improvement Admission and Anticipated Discharge Date Admission Date: February 12, 2025 Supervising Physician Co-Signing Physician Notes chart reviewed, case d/w Lane Amador PA-C Subjective Patient seen and evaluated at bedside in ED. She reports feeling significantly better than the past few days. She has not had any vomiting since last night. She denies nausea at this time. She is well tolerating her clear liquid diet, which she notes is the first real oral intake she has had in over a week. We discussed that her electrolyte abnormalities have resolved after repletion. She is agreeable to advancing to a full liquid diet for dinner tonight. She denies any additional complaints or concerns at this time. Physical Exam Physical Exam: General: No acute distress, nondiaphoretic, well-developed, well-nourished. Skin: Warm, dry. No rashes or peripheral edema noted. Cardiac: Regular rate and rhythm without murmurs gallops or rubs. Pulm: Clear to auscultation bilaterally without wheezes, rales or rhonchi. Normal respiratory effort. 98% on room air. Abdominal: Soft, nontender, nondistended. Bowel sounds present. No abdominal trigger points identified on palpation. Neuro: A&O x3. No focal neurological deficits. Results & Data Results & Data Vital Signs (Past 12 Hours) Vital Signs Temp Pulse Pulse Resp BP Pulse Ox O2 Del Method 02/13/25 10:00 95 H 21 123/90 98 Room Air 02/13/25 06:00 74 16 133/90 99 Room Air 02/13/25 03:27 66 02/13/25 02:39 98.4 F 76 18 138/72 97 Room Air Laboratory Results Reviewed CBC, BMP/chemistries, UA PG Care Time/CCT Total # of Minutes Spent Total Time Spent with Patient: Total time spent is greater than 50% in coordination of care (as documented) at patient's floor/unit and/or counseling patient: Coding Level of Care Code 33941 SUB INP/OBS CARE 3/50MIN Diagnoses Cyclic vomiting syndrome R11.15 Electrolyte abnormality E87.8 Prolonged QT interval R94.31 Hypertension I10 Depression F32.9"
[2025-02-13] MEDS ORDERED: DOCUSATE SODIUM 100 MG CAP PO PRN (14:32)
[2025-02-13] MEDS ORDERED: POLYETHYLENE (MIRALAX) 17 GM PACK PO PRN (14:32)
[2025-02-13 19:49] VITALS: BP 110/64; PULSE 82; RESP 20; TEMP 98.4; O2SAT 97
--- NOTE | 2025-02-14 18:52 | Discharge Summary ---
"Discharge Summary Date of Service February 14, 2025 Principal Dx & Hospital Course #1 = Principal Diagnosis (1) Cyclic vomiting syndrome: (2) Electrolyte abnormality: (3) Prolonged QT interval: (4) Hypertension: (5) Depression: Pinky Daniela is a pleasant 29 y/o woman with past medical history of HTN, depression, and cyclic vomiting syndrome. She presented with two weeks of ongoing nausea, multiple episodes of vomiting, as well as po intolerance. On arrival, patient was clinically dehydrated and laboratory findings revealed multiple electrolyte derangements including hypokalemia, hypophosphatemia, and hyponatremia. A pro longed QTc interval was noted on her admission EKG. She was admitted for management of such. Daniela left AGAINST MEDICAL ADVICE in the evening on 02/13. #Cyclic vomiting syndrome | Dehydration | Electrolyte abnormalities - with ongoing nausea and vomiting x 2 weeks, po intolerance. She does have medicinal marijuana at home but not has used this for the last two weeks. - Magnesium and phosphate now WNL after repletion - Hyponatremia improved with IV fluids, Na still mildly low at 133 - Inpatient course: thiamine 100 mg IV daily, Pepcid 20 mg IV BID, Protonix 40 mg IV daily, Zyprexa 2.5mg IV BID as needed for nausea - She well-tolerated the clear liquid diet and was advanced to full liquid diet for dinner 02/13 #Prolonged QTc - QTc 521 on admission EKG - Cautious use of anti-emetics - Zyprexa should have minimal QT prolonging effects - Electrolytes repleted and clinically euvolemic after maintenance IV fluids and no further vomiting #Hypertension - patient not currently on any medications - Continue to monitor #Depression/Anxiety - patient currently not on any medications - Continue to monitor VTE PPx: SCDs Dispo: Left AGAINST MEDICAL ADVISE on 02/13 at night. No prescriptions sent on discharge. Notes For Next Care Provider Patient left AMA the evening of 02/13. The signout I received from restaurant shift supervisor was that she was found in the hallway, a provider asked her if she needed any assistance, she removed her telemetry monitoring and ripped her IV out, then told the provider she was leaving. No medications were sent to her pharmacy when she left. Medication Changes From Visit none Admission HPI Per Admitting Provider Daniela Patel is a 29yo female with history of Hypertension, Depression/Anxiety and Cyclic Vomiting Syndrome presenting with two weeks of nausea and vomiting. She reports the nausea has been persistent and she has vomited too many times to count during the day. She has had some blood streaked emesis. Mild abdominal tenderness. Poor oral intake - reports she has not been able to keep food down for the last 2 weeks. Has been having some significant heartburn symptoms as well Denies fever, chills, chest pain, cough, SOB. She has not taken any medications for nausea at home. She has medicinal marijuana at home but has not used it for the last two weeks. No additional complaints at this time. Patient was seen int he ER yesterday 02/11/25 with similar complaints. She was treated with anti-emetics and electrolytes at that time. QTc prolonged at 560 at that time. Did not wish to stay in the hospital therefore was dischaged home. In the ER patient afebrile, tachycardic and hypertensive Ongoing nausea Prolonged QTc interval noted on EKG therefore patient given Dexamethasone, Scopolamine ER Course: Ativan 2mg IV Plasmalyte x 1L Dexamethasone 6mg IV Scopalamine patch KCl 10mEq x 3 ordered Pepcid 20mg IV Protonix 40mg IV Discharge Exam No exam completed as patient left AGAINST MEDICAL ADVISE prior to a provider being notified and having an opportunity to reassess her before leaving. Discharge Plan Discharge Items Patient Disposition: Against Medical Advice Reason For Visit: CYCLIC VOMITING Condition on Discharge: Serious Activity: As commented below Non-emergency contact: Primary Care Provider Follow-up/Referrals: Anahy Galloway, [Primary Care Provider] - Pending Studies at Discharge: No [facility]Alone [facility], Smoking Cessation Medications and DC Order Prescriptions: No Action No Known Home Medications Discharge Orders: Left Against Medical Advice (Routine); Ordered 02/13/25 Ordered By: Lukas Diez Admission Data Admit Date/Time: 02/12/25 20:39 Attending Provider: Pan Varela Admit Provider: Irena Marlow Primary Care Provider: Anahy Galloway Other Providers: Irena Marlow Hospital Stay Data Consultations 02/12/25 20:13 ED Decision to Admit Stat Pending Results Patient Have Any Pending Studies at Discharge: No Discharge Instructions Given to Patient (Per Discharging Provider) * Patient eloped. Was stopped by Dr. Irena Marlow and had manager monitoring and IV removed prior to leaving hospital. Total Time Total Time Spent Total Time Spent (In Minutes): Less than 30 minutes spent completing this discharge process including direct patient care, medication reconciliation, documentation, review of labs and images, and coordination of care. Coding Level of Care Code 44144 IN/OBS DISCH 30 MIN/LESS Diagnoses Cyclic vomiting syndrome R11.15 Electrolyte abnormality E87.8 Prolonged QT interval R94.31 Hypertension I10 Depression F32.9"
[2025-02-15] MEDS ORDERED: REMOVE TRANSDERM-SCOP PATCH ONE (06:00)
== END 2025-02-13 20:46 | disposition left against medical advice (07) | DRG 394 ==
LOC: ED 18:19 → EDINP 20:39 → SUATTDRO 20:39 → 2N 21:58